=== PATIENT | female | born 1975 | race Caucasian/White ===

== ENCOUNTER 2020-05-07 12:23 | Outpatient (CLI) | payer OTHER, SELFPAY ==
[2020-05-07 12:40] LABS: Basophils Percent Auto 0.5 % (0.2-1.2); Eosinophils Absolute Auto 0.1 K/mm3 (0-0.3); Eosinophils Percent Auto 1.6 % (0-4.4); Hematocrit 46.1 % (37.0-47.0); Hemoglobin 15.7 g/dL (12.0-15.0); Immature Granulocyte Absolute 0.02 K/mm3 (0.00-0.031); Immature Granulocyte Percent A 0.2 % (0-0.5); Lymphocytes Absolute Auto 1.74 K/mm3 (0.9-3.2); Lymphocytes Percent Auto 20.8 % (18.3-44.2); Mean Corpuscular HGB Conc 34.1 g/dl (32-36); Mean Corpuscular Hemoglobin 34.1 pg (26-34); Mean Corpuscular Volume 100.2 fl (80-100); Mean Platelet Volume 9.9 fl (7.4-10.4); Monocytes Absolute Auto 0.8 K/mm3 (0.1-0.6); Monocytes Percent Auto 9.6 % (2.6-8.5); Neutrophils Absolute Auto 5.6 K/mm3 (1.3-6.7); Neutrophils Percent Auto 67.3 % (45.5-73.1); Platelet Count Result 187 k/mm3 (150-375); Red Cell Distribution Width 13.7 % (11.5-14.5); White Blood Count 8.4 K/mm3 (4.5-10.0)
--- NOTE | 2020-05-07 12:40 | ECG_ITS ---
Measurements Intervals [place] Rate: 74 P: 62 OR: 139 QRS: 57 QRSD: 88 T: 64 QT: 384 QTc: 426 Interpretive Statements SINUS RHYTHM POSSIBLE LEFT ATRIAL ENLARGEMENT BORDERLINE ECG Electronically Signed On 05-07-2020 13:19:13 CDT by Jonathon Villarreal D.O.
[2020-05-07 12:50] LABS: Blood Urea Nitrogen 14 mg/dL (7-17); Calcium 8.7 mg/dL (8.4-10.2); Carbon Dioxide 30 mmol/L (22-30); Chloride 103 mmol/L (98-107); Estimated Glomerular Filt Rate > 60; Glucose 102 mg/dL (65-105); Potassium 4.1 mmol/L (3.4-5.0); Sodium 137 mmol/L (137-145)
[2020-05-07 13:20] LABS: Thyroid Stimulating Hormone 0.291 uIU/mL (0.465-4.680)
== END 2020-05-07 12:24 | disposition home or self-care (01) ==
PROVIDERS: PCP Family Medicine; Visit Provider Nurse Practitioner Family
DX: R55 Syncope and collapse (principal); R94.31 Abnormal electrocardiogram [ECG] [EKG]
CPT/HCPCS: 36415; 80048; 84443; 85025; 93005

== ENCOUNTER 2020-08-01 17:33 | Outpatient (CLI) | payer OTHER, SELFPAY ==
--- NOTE | ~2020-08-01 | CT_ITS ---
EXAMINATION: CTA chest PE protocol DATE: 08/01/2020 18:49 INDICATION: Shortness of breath TECHNIQUE: Computed tomography angiography (CTA) of the chest was performed with 100 mL Omnipaque-350 intravenous contrast timed to evaluate the pulmonary arteries. Coronal maximum intensity projection 3D-reconstructions were created by the technologist. The dose-length product (DLP) was 708.78 mGy-cm. Automated exposure control and iterative reconstruction technique were employed. COMPARISON: None. FINDINGS: The pulmonary arteries are well-opacified. No pulmonary embolism is identified. There are m ultiple (greater than 10) pulmonary nodules scattered throughout the lungs. The largest measures 7 mm in the right lower lobe. No focal airspace opacities are identified. There is no pleural effusion or pneumothorax. No pathologically enlarged thoracic lymph nodes are identified. The heart size is norm al. IMPRESSION: 1. No pulmonary embolism. 2. Multiple pulmonary nodules measuring up to 7 mm which could reflect infection/inflammation however , follow-up CT in 3-6 months is recommended. Reviewed, dictated and finalized at location A. IMPRESSION: 1. No pulmonary embolism. 2. Multiple pulmonary nodules measuring up to 7 mm which could reflect infectio n/inflammation however, follow-up CT in 3-6 months is recommended.
[2020-08-01 18:00] LABS: Basophils Absolute Auto 0.1 K/mm3 (0.0-0.1); Basophils Percent Auto 0.5 % (0.2-1.2); Eosinophils Percent Auto 0.3 % (0-4.4); Hematocrit 45.6 % (37.0-47.0); Hemoglobin 15.5 g/dL (12.0-15.0); Immature Granulocyte Absolute 0.05 K/mm3 (0.00-0.031); Immature Granulocyte Percent A 0.4 % (0-0.5); Lymphocytes Absolute Auto 2.14 K/mm3 (0.9-3.2); Mean Corpuscular Hemoglobin 33.9 pg (26-34); Mean Corpuscular Volume 99.8 fl (80-100); Mean Platelet Volume 10.2 fl (7.4-10.4); Monocytes Percent Auto 8.7 % (2.6-8.5); Neutrophils Absolute Auto 8.6 K/mm3 (1.3-6.7); Neutrophils Percent Auto 72.1 % (45.5-73.1); Platelet Count Result 193 k/mm3 (150-375); Red Blood Count 4.57 M/mm3 (4.2-5.4); Red Cell Distribution Width 14.8 % (11.5-14.5); White Blood Count 11.9 K/mm3 (4.5-10.0)
[2020-08-01 18:12] LABS: Anion Gap 2 mmol/L (8-16); Blood Urea Nitrogen 14 mg/dL (7-17); Carbon Dioxide 30 mmol/L (22-30); Chloride 102 mmol/L (98-107); Estimated Glomerular Filt Rate > 60; Glucose 104 mg/dL (65-105); Sodium 134 mmol/L (137-145)
[2020-08-01 18:20] LABS: D Dimer 0.27 ug/mL (<0.48)
== END 2020-08-01 17:34 | disposition home or self-care (01) ==
LOC: ANHIMG 17:35
PROVIDERS: PCP Family Medicine; Visit Provider Family Medicine
DX: I10 Essential (primary) hypertension (principal); R06.02 Shortness of breath; R91.8 Other nonspecific abnormal finding of lung field
CPT/HCPCS: 36415; 71275; 80048; 85025; 85380; Q9967

== ENCOUNTER 2021-02-08 13:49 | Outpatient (CLI) | payer OTHER, SELFPAY ==
--- NOTE | ~2021-02-08 | XR_ITS ---
EXAMINATION: XR wrist LT min 3V DATE: 02/08/2021 14:16 INDICATION: Ulnar sided left wrist pain and swelling. TECHNIQUE: 4 views of left wrist were obtained. COMPARISON: None. FINDINGS: Bone alignment is normal. No fracture. There is degenerative cystic change in proximal jose roberto te, consistent with ulnolunate impaction syndrome. There is mild osteoarthritis of first and second m etacarpophalangeal joints. IMPRESSION: 1. Mild polyarticular osteoarthritis. Reviewed, dictated and finalized at location A.
== END 2021-02-08 13:50 | disposition home or self-care (01) ==
PROVIDERS: PCP Family Medicine; Visit Provider Nurse Practitioner Family
DX: M19.032 Primary osteoarthritis, left wrist (principal); R29.898 Other symptoms and signs involving the musculoskeletal system
CPT/HCPCS: 73110

== ENCOUNTER 2021-05-10 10:18 | Outpatient (CLI) | payer OTHER, SELFPAY ==
[2021-05-10 10:43] LABS: Basophils Absolute Auto 0.1 K/mm3 (0.0-0.1); Basophils Percent Auto 0.7 % (0.2-1.2); Eosinophils Absolute Auto 0.1 K/mm3 (0-0.3); Eosinophils Percent Auto 0.9 % (0-4.4); Hematocrit 42.9 % (37.0-47.0); Hemoglobin 14.2 g/dL (12.0-15.0); Immature Granulocyte Absolute 0.03 K/mm3 (0.00-0.031); Immature Granulocyte Percent A 0.3 % (0-0.5); Lymphocytes Absolute Auto 1.53 K/mm3 (0.9-3.2); Lymphocytes Percent Auto 17.2 % (18.3-44.2); Mean Corpuscular HGB Conc 33.1 g/dl (32-36); Mean Corpuscular Hemoglobin 33.3 pg (26-34); Mean Corpuscular Volume 100.5 fl (80-100); Mean Platelet Volume 10.3 fl (7.4-10.4); Monocytes Absolute Auto 0.8 K/mm3 (0.1-0.6); Neutrophils Absolute Auto 6.4 K/mm3 (1.3-6.7); Neutrophils Percent Auto 71.9 % (45.5-73.1); Platelet Count Result 170 k/mm3 (150-375); Red Blood Count 4.27 M/mm3 (4.2-5.4); Red Cell Distribution Width 14.7 % (11.5-14.5); White Blood Count 8.9 K/mm3 (4.5-10.0)
[2021-05-10 10:53] LABS: Alanine Aminotransferase 18 U/L (4-35); Alkaline Phosphatase 68 U/L (38-126); Anion Gap 6 mmol/L (8-16); Aspartate Amino Transferase 23 U/L (14-36); Bilirubin,Total 0.4 mg/dL (0.2-1.3); Blood Urea Nitrogen 24 mg/dL (7-17); Calcium 9.1 mg/dL (8.4-10.2); Carbon Dioxide 27 mmol/L (22-30); Chloride 106 mmol/L (98-107); Cholesterol 177 mg/dL (0-200); Estimated Glomerular Filt Rate > 60; Glucose 107 mg/dL (65-105); HDL Direct 63 mg/dL; Potassium 4.3 mmol/L (3.4-5.0); Sodium 139 mmol/L (137-145); Triglycerides 83 mg/dL (<150)
[2021-05-10 11:03] LABS: LDL Cholesterol Direct 93 mg/dL
[2021-05-10 11:23] LABS: Thyroid Stimulating Hormone 0.344 uIU/mL (0.465-4.680)
[2021-05-10 11:52] LABS: Hemoglobin A1C 5.5 % (<5.7)
[2021-05-10 12:31] LABS: Vitamin D 25 Hydroxy 15.3 ng/mL
== END 2021-05-10 10:19 | disposition home or self-care (01) ==
PROVIDERS: PCP Family Medicine; Visit Provider Nurse Practitioner Family
DX: Z13.29 Encounter for screening for other suspected endocrine disorder (principal); G47.33 Obstructive sleep apnea (adult) (pediatric); E78.5 Hyperlipidemia, unspecified; E55.9 Vitamin D deficiency, unspecified; E11.40 Type 2 diabetes mellitus with diabetic neuropathy, unspecified
CPT/HCPCS: 36415; 80053; 80061; 82306; 83036; 84443; 85025

== ENCOUNTER 2021-05-30 07:23 | Outpatient (CLI) | payer OTHER, SELFPAY ==
[2021-05-30 08:06] LABS: Glucose 108 mg/dL (65-110)
[2021-05-30 08:35] LABS: Free T4 Free Thyroxine 1.09 ng/mL (0.78-2.19)
== END 2021-05-30 07:24 | disposition home or self-care (01) ==
PROVIDERS: PCP Family Medicine; Visit Provider Nurse Practitioner Family
DX: R79.89 Other specified abnormal findings of blood chemistry (principal); R73.09 Other abnormal glucose
CPT/HCPCS: 36415; 82947; 84439; 84443

== ENCOUNTER 2021-06-14 17:11 | Emergency (ER) | payer OTHER, SELFPAY ==
[2021-06-14 17:30] VITALS: BP 177/87; PULSE 71; RESP 18; TEMP 37.2; O2SAT 96
--- NOTE | 2021-06-14 18:01 | ED.GENADULT ---
HPI - General Adult General Chief complaint: Upper Respiratory Infection Stated complaint: covid symptoms Time Seen by Provider: 06/14/21 17:52 Source: patient and RN notes reviewed Mode of arrival: ambulatory Limitations: no limitations History of Present Illness HPI narrative: 46-year-old female presents with complaints of upper respiratory infection symptoms, fatigue, body aches, and cough for the past 2 days. Charity reports increasing URI symptoms, productive cough, low-grade fever throughout the day. Reports she saw her PMD today who wants her evaluated for COVID-19. Routine medications without relief. Productive cough without chest congestion. ?Rhinorrhea and nasal congestion. Exacerbating factors consist of smoke exposure. ?No high fevers, chills, or sweats. ?No nausea, vomiting, and abdominal pain. Tolerating liquids well. Denies shortness of breath, chest pain, coughing up blood, facial pain, foreign body sensation, and rash. ?The patient reports she has not been diagnosed with COVID-19. ?The patient reports she is not waiting for the results of a COVID-19 lab test. The patient reports she does not have weakness or myalgia. The patient reports he does not have any loss of smell or taste or diarrhea. ?Denies recent traveling. ?Denies concerns for COVID-19 or exposures. ?At this time, the patient is not suspected of having COVID-19. Some parts of this dictation were generated by voice recognition software and may contain typographical and/or grammatical inaccuracies. Related Data Allergies Allergy/AdvReac Type Severity Reaction Status Date / Time cefadroxil Allergy Unknown unknown Verified 06/19/21 08:32 cefuroxime Allergy Unknown unknown Verified 06/19/21 08:32 Review of Systems Review of Systems: CONSTITUTIONAL: Complaints of low-grade fever, fatigue. Denies chills, sweats. EYES: Denies visual changes, redness, discharge. ENT: Complains of rhinorrhea, congestion. Denies otalgia, sore throat. CARDIOVASCULAR: Denies chest pain, palpitations, edema. RESPIRATORY: Denies wheezing, dyspnea. Complaints of dry cough and productivity. GASTROINTESTINAL: Denies abdominal pain, nausea, vomiting, diarrhea. GENITOURINARY: Denies dysuria, hematuria, abnormal discharge. SKIN: Denies rash or itching. MUSCULOSKELETAL: Denies acute back pain, joint pain, myalgia. Complaints of body aches. NEUROLOGIC: Denies numbness or focal weakness. PSYCHIATRIC: Denies anxiety or depression. All systems reviewed & are unremarkable except as noted in HPI and below. [facility] Past Medical History Medical History Anxiety BMI 36.0-36.9,adult COPD (chronic obstructive pulmonary disease) Depression Dyslipidemia Dyspnea Essential hypertension Neuropathy MARK (obstructive sleep apnea) Paroxysmal atrial tachycardia PVT (paroxysmal ventricular tachycardia) Tobacco abuse Type 2 diabetes mellitus with diabetic neuropathy, without long-term current use of insulin Vitamin D deficiency Surgical History Surgical History History of arthroscopic knee surgery LT X2 History of bilateral breast reduction surgery Family History Family History Mother Family history of chronic obstructive pulmonary disease Family history of heart disease in male family member before age 55 Family history of congestive heart failure Father No problems noted. Sibling No problems noted. 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 Gender identity (if verb
[2021-06-15 18:47] LABS: SARS-CoV-2 RNA PCR Negative
== END 2021-06-14 18:28 | disposition home or self-care (01) ==
PROVIDERS: Emergency Provider Nurse Practitioner Family; PCP Family Medicine
DX: J06.9 Acute upper respiratory infection, unspecified (principal); Z20.822 Contact with and (suspected) exposure to COVID-19; F17.210 Nicotine dependence, cigarettes, uncomplicated; J44.9 Chronic obstructive pulmonary disease, unspecified; E78.5 Hyperlipidemia, unspecified; I10 Essential (primary) hypertension; G47.33 Obstructive sleep apnea (adult) (pediatric); E11.42 Type 2 diabetes mellitus with diabetic polyneuropathy; F41.9 Anxiety disorder, unspecified; F32.9 Major depressive disorder, single episode, unspecified
CPT/HCPCS: 87426; 87804; 99213; C9803; G0463; U0003; U0005

== ENCOUNTER → 2021-06-14 17:15 | Outpatient (CLI) | payer OTHER, SELFPAY ==
--- NOTE | ~2021-06-14 | XR_ITS ---
EXAMINATION: XR chest 2V DATE: 06/14/2021 18:34 INDICATION: Cough. TECHNIQUE: Frontal and lateral views of the chest were obtained. COMPARISON: Chest 2 views 07/30/2019, chest CT 08/01/2020 FINDINGS: The chest demonstrates clear lungs without pneumonia, pleural effusion, or pneumothorax. Th e heart size is normal. IMPRESSION: 1. No acute cardiopulmonary disease. Reviewed, dictated and finalized at location A.
== END ==
PROVIDERS: PCP Nurse Practitioner Family; Visit Provider Nurse Practitioner Family
DX: R05 Cough (principal)
CPT/HCPCS: 71046

== ENCOUNTER 2022-11-08 07:39 | Outpatient (CLI) | payer OTHER, SELFPAY ==
--- NOTE | ~2022-11-08 | XR_ITS ---
Clinical Indication: Hypoxemia PA and lateral views of the chest: Comparison: 06/14/2021 Findings: The lungs are clear, without evidence of focal consolidation or pleural effusion. Cardiome diastinal silhouette is within normal limits. Bones and soft tissues are unremarkable. Impression: Normal chest. Reviewed, dictated and finalized at location . NATURALIST Impression: Normal chest.
--- NOTE | 2022-11-08 07:49 | ECHO_ITS ---
Patient Info Name: Charity Mclean Age: 47 years : 1975 Gender: Female Ht: 64 in Wt: 226 lbs BSA: 2.20 m2 HR: 71 bpm BP: 138 / 94 mmHg Technical Quality: Fair Exam Date: 11/08/2022 7:54 AM Exam Location: [facility] Patient Status: Outpatient Admit Date: 11/08/2022 Staff Ordering Physician: Jasmine Lopez MD Wooden Box Maker: Mary Choi RDCS Attending Provider: Jasmine Lopez MD Referring Physician: Jessica REDD; Exam Type: CA echo doppler color flow Study Info Indications R09.02 - HYPOXEMIA Complete two-dimensional, color flow and Doppler transthoracic echocardiogram is performed. Summary 1. Complete two-dimensional, color flow and Doppler transthoracic echocardiogram is performed. 2. Left ventricular chamber dimension is normal. 3. Left ventricular systolic function is normal, estimated at 60-65%. 4. There is mildly increased left ventricular wall thickness. 5. The left ventricular diastolic function is grade II diastolic dysfunction. 6. E/e' 18 is elevated. 7. Global longitudinal strain is normal at -17.1%. 8. Left atrial chamber dimension is moderately enlarged. 9. The mitral valve has moderately calcified annulus. 10. There is trace mitral valve regurgitation. 11. Mild pulmonary hypertension, estimated pulmonary arterial systolic pressure is 42 mmHg. 12. Dilated inferior vena cava with >50% collapse upon inspiration consistent with elevated right atrial pressure, 10 mmHg. Left Ventricle E/e' 18 is elevated. Global longitudinal strain is normal at -17.1%. Left ventricular chamber dimension is normal. Left ventricular systolic function is normal, estimated at 60-65%. There is mildly increased left ventricular wall thickness. The left ventricular diastolic function is grade II diastolic dysfunction. Right Ventricle Right ventricular systolic function is normal and with normal TAPSE 2.5 cm. Right ventricular chamber dimension is normal. Left Atria Left atrial chamber dimension is moderately enlarged. Right Atria Right atrial chamber dimension is normal. Aortic Valve The aortic valve is probable trileaflet. There is no aortic valve stenosis. There is no aortic valve regurgitation. Pulmonic Valve There is no pulmonic regurgitation. Mitral Valve The mitral valve has moderately calcified annulus. There is no mitral valve stenosis. There is trace mitral valve regurgitation. Tricuspid Valve There is no tricuspid valve regurgitation. Mild pulmonary hypertension, estimated pulmonary arterial systolic pressure is 42 mmHg. Pericardium/Pleural There is no pericardial effusion. Inferior Vena Cava Dilated inferior vena cava with >50% collapse upon inspiration consistent with elevated right atrial pressure, 10 mmHg. Aorta The aortic root size at the sinus of Valsalva is normal. Left Ventricular Outflow Tract Name Value Normal LVOT 2D LVOT Diameter 2.0 cm LVOT Doppler LVOT Peak Gradient 5 mmHg LVOT Mean Gradient 3 mmHg LVOT VTI 25 cm LVOT VTI/AV VTI Ratio
--- NOTE | 2022-11-09 08:58 | WPDPFTINT ---
PFT Procedure Performed PFT Procedure Performed Spirometry with Pre/Post Bronchodilator Plethysmography (Lung Vol) Diffusing Cap (DLCO) Flow Vol Loop PFT Interpretation Lung volumes were measured with the body plethysmography method. The diminished expiratory reserve volume is related to obesity. The remaining lung volumes are unremarkable. Spirometry showed diminished expiratory flow rates and a normal FEV1 to FVC ratio 72%. Following administration of a bronchodilator there was no significant increase in the expiratory flow rates. Lung diffusion capacity is within the normal range at 84% predicted. The flow volume loop is unremarkable. In comparison to previous study in 2019, the post bronchodilator FVC is now greater by approximately 0.5 L as is the post bronchodilator FEV1 by approximately 0.6 L. Lung diffusion capacity is now within normal range from a previous value of 52%. Impression: Nonspecific pattern; overall improvement from previous study showing moderate obstructive airway defect with diminished lung diffusion capacity.
--- NOTE | 2022-11-09 09:02 | WPDSIXMINUTE ---
Six Minute Walk Procedure Procedure Performed Pulmonary Stress Test (6 min walk) Six Minute Walk Six Minute Walk: This 6 minute walk test was carried out with the patient breathing ambient air. The pre-walk oxyhemoglobin saturation was 91%. The patient walked over 426 m with no stops during testing. During the walk the oxyhemoglobin saturation remained 90% or higher. Impression: No evidence of oxyhemoglobin desaturation on this testing.
== END 2022-11-08 07:40 | disposition home or self-care (01) ==
LOC: ANHCARD 07:41
PROVIDERS: PCP Family Medicine; Visit Provider Internal Medicine Critical Care Medicine
DX: R09.02 Hypoxemia (principal); I27.20 Pulmonary hypertension, unspecified
CPT/HCPCS: 71046; 93306; 94060; 94618; 94726; 94729

== ENCOUNTER 2023-02-16 05:17 | Inpatient (IN) | payer MEDICAID, SELFPAY ==
[2023-02-16] VITALS (18 sets, daily range): BP systolic 96–127; BP diastolic 63–86; PULSE 99–152; RESP 16–32; TEMP 36.1–36.3; O2SAT 90–100; BMI 39.7
--- NOTE | 2023-02-16 05:26 | ADMGEN ---
This patient, Charity Mclean, was admitted to IMU Room 211-01 on 02/16/23 at 0520. Patient/family oriented to hospital policies and general routines including ID bracelet, bed and alarms, visiting hours, pain management, procedures, bathroom and other care routines, personal items, smoking policy, room service/diet, and visiting hours. Information on how to activate the Rapid Response Team has been discussed. Patient/Family are encouraged to report perceived risks to care and to ask questions if they do not understand what they are told or what they should do.
--- NOTE | 2023-02-16 05:40 | ECG_ITS ---
Measurements Intervals [place] Rate: 138 P: RI: 0 QRS: 60 QRSD: 91 T: 74 QT: 291 QTc: 441 Interpretive Statements ATRIAL FIBRILLATION WITH RAPID VENTRICULAR RESPONSE BASELINE ARTIFACT ABNORMAL ECG COMPARED TO ECG 05/07/2020 12:45:01 ATRIAL FIBRILLATION NOW PRESENT Electronically Signed On 02-16-2023 15:24:41 CDT by Too Hill M.D.
[2023-02-16 06:18] LABS: Basophils Absolute Auto 0.1 K/mm3 (0.0-0.1); Basophils Percent Auto 0.6 % (0.2-1.2); Eosinophils Absolute Auto 0.1 K/mm3 (0-0.3); Eosinophils Percent Auto 1.6 % (0-4.4); Hematocrit 37.9 % (37.0-47.0); Hemoglobin 12.3 g/dL (12.0-15.0); Immature Granulocyte Absolute 0.02 K/mm3 (0.00-0.031); Immature Granulocyte Percent A 0.3 % (0-0.5); Lymphocytes Absolute Auto 1.68 K/mm3 (0.9-3.2); Lymphocytes Percent Auto 21.8 % (18.3-44.2); Mean Corpuscular HGB Conc 32.5 g/dl (32-36); Mean Corpuscular Hemoglobin 33.3 pg (26-34); Mean Corpuscular Volume 102.7 fl (80-100); Mean Platelet Volume 9.9 fl (7.4-10.4); Monocytes Absolute Auto 0.8 K/mm3 (0.1-0.6); Monocytes Percent Auto 9.7 % (2.6-8.5); Neutrophils Absolute Auto 5.1 K/mm3 (1.3-6.7); Platelet Count Result 200 k/mm3 (150-375); Red Blood Count 3.69 M/mm3 (4.2-5.4); Red Cell Distribution Width 14.5 % (11.5-14.5); White Blood Count 7.7 K/mm3 (4.5-10.0)
[2023-02-16 06:25] LABS: Anion Gap 1 mmol/L (8-16); Blood Urea Nitrogen 11 mg/dL (7-17); Calcium 8.6 mg/dL (8.4-10.2); Carbon Dioxide 32 mmol/L (22-30); Chloride 107 mmol/L (98-107); Estimated CRCL calculation 136 ml/min; Estimated Glomerular Filt Rate > 60; Glucose 117 mg/dL (65-110); Magnesium 2.2 mg/dL (1.6-2.3); Phosphorus 3.4 mg/dL (2.5-4.5); Potassium 4.5 mmol/L (3.4-5.0); Sodium 140 mmol/L (137-145)
[2023-02-16 06:31] LABS: INR 1.2; Prothrombin Time 14.5 Seconds (11.1-14.7)
[2023-02-16 06:32] LABS: Partial Thromboplastin Time 34.4 SECONDS (22.3-36.8)
--- NOTE | 2023-02-16 06:35 | PM.IMHP ---
H&P: HPI History of Present Illness Date/Time: 02/16/23 06:35 Chief Complaint: Shortness of breath Narrative: Patient is a 47 year old female with a past medical history of COPD, MARK, HTN, HLD who presented to [facility] in [place] for shortness of breath. Patient stated that about two weeks ago she was sick with what she thought was the flu. She stated, at that time her sputum had changed, which she stated was yucky. She stated that all of that had resolved, however, the last two days she has been noted to be more short of breath. She went and had her albuterol inhaler, however, she stated that she did not notice any changes, this is when she stated that this is the point when she decided to go the ED. She does admit to having palpitations the day before yesterday. She stated that she is also supposed to be on a CPAP/BiPap however she does not wear one. She is also supposed to be taking brezi for her COPD, however, she stated that it got too expensive so she has also stopped this as well. She denies any chest pain, nausea, vomiting, diarrhea, constipation, headache, lightheadedness, dizziness, increased swelling, or pain. She did state that she has seen Dr. Villarreal in the past, however, she stated that she has not seen him recently. She does admit to being tired all of the time. Currently, her heart rate is 120-130s. The nurse reported that the IV was bad when she arrived so she has not been getting any of the cardizem. She had an echo done in October of 2022, which showed EF of 60-65% with a grade 2 diastolic dysfunction. She denies any current urinary problems. Patient is being admitted to the hospitalist service under observation. Review of Systems Review of Systems: All systems reviewed & are unremarkable except as noted in HPI and below PMFSH Past Medical History Medical History (Updated 02/16/23 @ 08:13 by RENNY Galvan) Anxiety Bronchitis Conjunctivitis Depression Dyslipidemia Essential hypertension Hematuria Left wrist sprain Low back pain with right-sided sciatica Low TSH level Morbid (severe) obesity due to excess calories Neuropathy MARK (obstructive sleep apnea) Paroxysmal atrial tachycardia Syncope Tobacco abuse Type 2 diabetes mellitus with diabetic neuropathy, without long-term current use of insulin Vitamin D deficiency Surgical History Surgical History History of arthroscopic knee surgery LT X2 History of bilateral breast reduction surgery Family History Family History Mother Family history of chronic obstructive pulmonary disease Family history of congestive heart failure Heart disease Hypertension Father No problems noted. Sibling No problems noted. Social History Social History (Updated 02/16/23 @ 07:26 by RENNY Galvan) Social History: Patient lives by herself and is not . She has two children and lives with a cat. She wishes to be a full code, and her daughter Jossy will be her surrogate. Smoking packs per day: 1 Smoking cigarettes per day: 20.0 Years smoked: 34 Smoking pack-years: 34.00 Smoking status: Current every day smoker Tobacco type: cigarettes Second hand tobacco smoke exposure: Yes Alcohol intake: current Alcohol use details: Beer with friend 2x a month Substance use: current Substance use type: marijuana Other substance usage details: joint about every other day Last use: 02/09/23 Lack of Transportation: YES Lack of Food: Sometimes True Current Housing: I Have Housing Concerned About Future Housing: No Difficulty Paying Gas/Electric Bills: No Difficulty Paying for Meds: YES Currently Unemployed: YES Education: High School Diploma/GED Difficulty w/ Childcare or Family Care: No Living arrangements: with family Occupation/Education: occupation [employer]
[2023-02-16 07:26] LABS: NT Pro B Type Natriuretic Pept 2310 pg/mL (19.9-100)
[2023-02-16] MEDS: ENOXAPARIN 120 MG/0.8 ML SYRINGE 105 MG SUB-Q (07:32)
--- NOTE | 2023-02-16 07:56 | PM.CNCAR ---
Assessment and Plan Assessment and plan (1) Atrial fibrillation with rapid ventricular response: Code(s): I48.91 - Unspecified atrial fibrillation Status: Acute Assessment and Plan: Probably due to untreated MARK (as she awaits sleep study), recent URI?. [id number] 3. Start Sotalol 80 mg every 12 hours and Eliquis 5 mg BID. Continue Diltiazem drip for rate control and stop it if she cardioverts to sinus rhythm or HR in atrial fib is <70 bpm. Check EKG every 1-2 hours post Sotalol dose to check QT interval. (2) Tobacco abuse: Code(s): Z72.0 - Tobacco use Status: Acute Assessment and Plan: Counseled regarding smoking cessation. (3) COPD (chronic obstructive pulmonary disease): Code(s): J44.9 - Chronic obstructive pulmonary disease, unspecified Status: Acute Assessment and Plan: Manage by hospitalist. (4) MARK (obstructive sleep apnea): Code(s): G47.33 - Obstructive sleep apnea (adult) (pediatric) Status: Acute Assessment and Plan: Sees Dr. Lopez. (5) Morbid (severe) obesity due to excess calories: Code(s): E66.01 - Morbid (severe) obesity due to excess calories Status: Acute (6) Type 2 diabetes mellitus with diabetic neuropathy, without long-term current use of insulin: Code(s): E11.40 - Type 2 diabetes mellitus with diabetic neuropathy, unspecified Status: Acute Assessment and Plan: Manage by hospitalist. (7) Essential hypertension: Code(s): I10 - Essential (primary) hypertension Status: Acute Assessment and Plan: Stable. (8) Dyslipidemia: Code(s): E78.5 - Hyperlipidemia, unspecified Status: Acute Assessment and Plan: On Rosuvastatin. History of Present Illness History of Present Illness Consult date/time: 02/16/23 07:56 Reason For Visit: New onset Afib RVR Narrative: 47 yr old woman who is my regular cardiology patient presented to [facility] then transferred here for sob and found to have new onset atrial fib. She has a history of COPD, MARK (followed by Dr. Lopez), hypertension, DM, dyslipidemia, smoking. Reports in last few days she had sob and coughing and believed she had flu or pneumonia. She had palpitations during this time. She then went to [place] [facility] and found she was in rapid atrial fibrillation. Currently she is exhausted having not been able to sleep. She had changed jobs and lost her insurance and has not been able to do sleep study as ordered by Dr. Lopez. Now she has Medicaid. Denies chest pain, orthopnea, PND, edema, dizziness. Review of Systems Review of Systems: All systems reviewed & are unremarkable except as noted in HPI and below Constitutional: Constitutional: Reports as per HPI, Reports daytime sleepiness, Reports difficulty sleeping, Reports fatigue and Reports snoring Cardiovascular: Cardiovascular: Reports as per HPI, Denies chest pain, Reports irregular heart rhythm, Denies leg edema and Denies lightheadedness Respiratory: Respiratory: Reports as per HPI, Reports pain with cough, Reports dyspnea and Reports dyspnea on exertion Gastrointestinal: Gastrointestinal: Reports as per HPI and Denies abdominal pain Genitourinary: Genitourinary: Reports as per HPI and Denies dysuria Musculoskeletal: Musculoskeletal: Reports as per HPI Neurologic: Reports as per HPI, Denies dizziness and Denies syncope [facility] Past Medical History Medical History (Updated 02/16/23 @ 08:06 by Jonathon Villarreal DO) Anxiety Bronchitis Conjunctivitis Depression Dyslipidemia Essential hypertension Hematuria Left wrist sprain Low back pain with right-sided sciatica Low TSH level Morbid (severe) obesity due to excess calories Neuropathy MARK (obstructive sleep apnea) Paroxysmal atrial tachycardia Syncope Tobacco abuse Type 2 diabetes mellitus with diabetic neuropathy, without long-term current use of insulin Vitamin D deficiency Surgical History Surgical Histo
--- NOTE | 2023-02-16 08:04 | ECG_ITS ---
Measurements Intervals [place] Rate: 113 P: [place]: 0 QRS: 58 QRSD: 98 T: 64 QT: 319 QTc: 438 Interpretive Statements ATRIAL FIBRILLATION WITH RAPID VENTRICULAR RESPONSE ABNORMAL ECG COMPARED TO ECG 02/16/2023 06:24:04 NO SIGNIFICANT CHANGES Electronically Signed On 02-16-2023 15:32:46 CDT by Too Hill M.D.
[2023-02-16] MEDS: dilTIAZem 100 MG/100 ML 100 MG/100 ML BAG IV CONT (08:43)
[2023-02-16] MEDS: FUROSEMIDE INJ 40 MG/4 ML VIAL IV PUSH (08:43)
[2023-02-16] MEDS: SOTALOL HCL 80 MG TABLET PO ×2 (08:45→20:07)
[2023-02-16] MEDS: APIXABAN 5 MG TABLET PO ×2 (08:45→20:07)
[2023-02-16] MEDS: buPROPion HCL XL (24 HR) 150 MG TABCR 300 MG PO (08:46)
[2023-02-16] MEDS: ROSUVASTATIN 10 MG TABLET 20 MG PO (08:46)
[2023-02-16] MEDS: GABAPENTIN 400 MG CAPSULE 1200 MG PO (08:46)
[2023-02-16 12:18] LABS: Glucose Point of Care 145 mg/dl (65-105)
[2023-02-16 16:00] LABS: Glucose Point of Care 101 mg/dl (65-105)
[2023-02-16] MEDS: GABAPENTIN 300 MG CAPSULE 600 MG PO (17:44)
[2023-02-16 20:05] LABS: Glucose Point of Care 143 mg/dl (65-105)
--- NOTE | 2023-02-16 22:07 | ECG_ITS ---
Measurements Intervals [place] Rate: 110 P: [place]: 0 QRS: 50 QRSD: 97 T: 61 QT: 332 QTc: 450 Interpretive Statements ATRIAL FIBRILLATION WITH RAPID VENTRICULAR RESPONSE ABNORMAL ECG COMPARED TO ECG 02/16/2023 10:40:33 NO SIGNIFICANT CHANGES Electronically Signed On 02-17-2023 13:43:39 CDT by Too Hill M.D.
[2023-02-17] VITALS (21 sets, daily range): BP systolic 111–139; BP diastolic 68–89; PULSE 88–122; RESP 20–24; TEMP 35.7–36.4; O2SAT 91–96
[2023-02-17] MEDS: dilTIAZem 100 MG/100 ML 100 MG/100 ML BAG 10 MG IV CONT ×2 (02:34→12:50)
[2023-02-17 05:02] LABS: Basophils Percent Auto 0.6 % (0.2-1.2); Eosinophils Absolute Auto 0.2 K/mm3 (0-0.3); Eosinophils Percent Auto 2.3 % (0-4.4); Hematocrit 37.9 % (37.0-47.0); Hemoglobin 12.1 g/dL (12.0-15.0); Immature Granulocyte Absolute 0.02 K/mm3 (0.00-0.031); Immature Granulocyte Percent A 0.3 % (0-0.5); Lymphocytes Absolute Auto 1.61 K/mm3 (0.9-3.2); Lymphocytes Percent Auto 24.8 % (18.3-44.2); Mean Corpuscular HGB Conc 31.9 g/dl (32-36); Mean Corpuscular Hemoglobin 32.4 pg (26-34); Mean Corpuscular Volume 101.3 fl (80-100); Mean Platelet Volume 10.1 fl (7.4-10.4); Monocytes Absolute Auto 0.6 K/mm3 (0.1-0.6); Monocytes Percent Auto 9.1 % (2.6-8.5); Neutrophils Absolute Auto 4.1 K/mm3 (1.3-6.7); Neutrophils Percent Auto 62.9 % (45.5-73.1); Platelet Count Result 215 k/mm3 (150-375); Red Blood Count 3.74 M/mm3 (4.2-5.4); Red Cell Distribution Width 14.1 % (11.5-14.5); White Blood Count 6.5 K/mm3 (4.5-10.0)
[2023-02-17 05:13] LABS: Alanine Aminotransferase 48 U/L (6-35); Albumin Level 3.5 g/dL (3.5-5.1); Alkaline Phosphatase 68 U/L (38-126); Anion Gap 3 mmol/L (8-16); Aspartate Amino Transferase 25 U/L (14-36); Bilirubin,Total 0.4 mg/dL (0.2-1.3); Blood Urea Nitrogen 17 mg/dL (7-17); Calcium 8.3 mg/dL (8.4-10.2); Carbon Dioxide 35 mmol/L (22-30); Chloride 102 mmol/L (98-107); Estimated CRCL calculation 136 ml/min; Estimated Glomerular Filt Rate > 60; Glucose 96 mg/dL (65-110); Magnesium 2.4 mg/dL (1.6-2.3); Potassium 4.3 mmol/L (3.4-5.0); Sodium 140 mmol/L (137-145)
[2023-02-17 08:47] LABS: Glucose Point of Care 104 mg/dl (65-105)
--- NOTE | 2023-02-17 09:00 | P.PNIM_ITS ---
Progress Note: A&P Assessment and Plan (1) Atrial fibrillation with rapid ventricular response: Code(s): I48.91 - Unspecified atrial fibrillation Status: Acute Assessment and Plan: * EKG (02/16/23) shows new onset afib RVR with a rate in the 130s * EKG (02/17/23) shows afib with heart rate in 110, QTc 450 * Current heart rate is better controlled in the 90s * Cardizem DC'd at this time * Will stop Bystolic * Started on Sotalol 80mg PO Q12H * tele monitor * Trend heart rate * Cardiology consulted thank you for your help * Started on Eliquis at outside facility, continue Lovenox for now, phan out the Eliquis (2) Tobacco abuse: Code(s): Z72.0 - Tobacco use Status: Acute Assessment and Plan: * Continues to smoke * Patch and gum added to mar * Smoking cessation education needed at discharge (3) COPD (chronic obstructive pulmonary disease): Code(s): J44.9 - Chronic obstructive pulmonary disease, unspecified Status: Acute Assessment and Plan: * Chronic and stable * No indication for supplemental oxygen * Albuterol inhaler continued * Will have her follow up with pulmonology for inhaler suggestions outpatient * trend respiratory status (4) Morbid (severe) obesity due to excess calories: Code(s): E66.01 - Morbid (severe) obesity due to excess calories Status: Acute Assessment and Plan: * BMI is 39.7 * Consider training designer consult * low fat diabetic diet (5) MARK (obstructive sleep apnea): Code(s): G47.33 - Obstructive sleep apnea (adult) (pediatric) Status: Acute Assessment and Plan: * No use of current CPAP/BiPAP * Did have a sleep study * High pulm HTN noted on the Echo (6) Type 2 diabetes mellitus with diabetic neuropathy, without long-term current use of insulin: Code(s): E11.40 - Type 2 diabetes mellitus with diabetic neuropathy, unspecified Status: Acute Assessment and Plan: * Current glucose is 96 * A1c has been in the 5s * ISS * Accu Cheks AC/HS * Trend glucose * Adjust therapy as indicated (7) Essential hypertension: Code(s): I10 - Essential (primary) hypertension Status: Acute Assessment and Plan: * BP is stable at 112/68 * Currently lisinopril and Bystolic is on hold * Restart medications as indicated * Trend BP * Adjust therapy as indicated (8) Dyslipidemia: Code(s): E78.5 - Hyperlipidemia, unspecified Status: Acute Assessment and Plan: * Continue rosuvastatin at this time (9) Congestive heart failure: Code(s): I50.9 - Heart failure, unspecified Status: Acute Assessment and Plan: * Complaints of shortness of breath * BNP elevated at 2310 * Echo shows grade 2 diastolic dysfunction * Appears to be chronic diastolic heart failure unsure if in acute exacerbation * Continue to trend urine output * could be contributing to the current symptoms * One dose of lasix given * Trend daily weights Plan Apnea link to assess for nocturnal hypoxia. Could also be related to obesity hypoventilation syndrome component as well Time Spent With Patient Time: 51 minutes Time with patient: Greater than 35 minutes Subjective Nikolas
--- NOTE | 2023-02-17 09:00 | PM.IMPN ---
Progress Note: A&P Assessment and Plan (1) Atrial fibrillation with rapid ventricular response: Code(s): I48.91 - Unspecified atrial fibrillation Status: Acute Assessment and Plan: EKG (02/16/23) shows new onset afib RVR with a rate in the 130s EKG (02/17/23) shows afib with heart rate in 110, QTc 450 Current heart rate is better controlled in the 90s Cardizem DC'd at this time Will stop Bystolic Started on Sotalol 80mg PO Q12H tele monitor Trend heart rate Cardiology consulted thank you for your help Started on Eliquis at outside facility, continue Lovenox for now, hpan out the Eliquis (2) Tobacco abuse: Code(s): Z72.0 - Tobacco use Status: Acute Assessment and Plan: Continues to smoke Patch and gum added to mar Smoking cessation education needed at discharge (3) COPD (chronic obstructive pulmonary disease): Code(s): J44.9 - Chronic obstructive pulmonary disease, unspecified Status: Acute Assessment and Plan: Chronic and stable No indication for supplemental oxygen Albuterol inhaler continued Will have her follow up with pulmonology for inhaler suggestions outpatient trend respiratory status (4) Morbid (severe) obesity due to excess calories: Code(s): E66.01 - Morbid (severe) obesity due to excess calories Status: Acute Assessment and Plan: BMI is 39.7 Consider rail express clerk consult low fat diabetic diet (5) MARK (obstructive sleep apnea): Code(s): G47.33 - Obstructive sleep apnea (adult) (pediatric) Status: Acute Assessment and Plan: No use of current CPAP/BiPAP Did have a sleep study High pulm HTN noted on the Echo (6) Type 2 diabetes mellitus with diabetic neuropathy, without long-term current use of insulin: Code(s): E11.40 - Type 2 diabetes mellitus with diabetic neuropathy, unspecified Status: Acute Assessment and Plan: Current glucose is 96 A1c has been in the 5s ISS Accu Cheks AC/HS Trend glucose Adjust therapy as indicated (7) Essential hypertension: Code(s): I10 - Essential (primary) hypertension Status: Acute Assessment and Plan: BP is stable at 112/68 Currently lisinopril and Bystolic is on hold Restart medications as indicated Trend BP Adjust therapy as indicated (8) Dyslipidemia: Code(s): E78.5 - Hyperlipidemia, unspecified Status: Acute Assessment and Plan: Continue rosuvastatin at this time (9) Congestive heart failure: Code(s): I50.9 - Heart failure, unspecified Status: Acute Assessment and Plan: Complaints of shortness of breath BNP elevated at 2310 Echo shows grade 2 diastolic dysfunction Appears to be chronic diastolic heart failure unsure if in acute exacerbation Continue to trend urine output could be contributing to the current symptoms One dose of lasix given Trend daily weights Plan Apnea link to assess for nocturnal hypoxia. Could also be related to obesity hypoventilation syndrome component as well Time Spent With Patient Time: 51 minutes Time with patient: Greater than 35 minutes Subjective Date/time seen: 02/17/23899 Interval history: 02/17/23899 Patient is doing ok. She complained of a little bit of left sided chest pain, however stated it was when she coughed, and it reproducible with area is palpated. She is stating that she is coughing a lot. She denies any sputum changes. She is denying any shortness of breath, nausea, vomiting, diarrhea constipation. Patient was on some oxygen. She is probably hypoxic at night related to her MARK, will have patient get a apnea link this evening to check on saturation levels. 02/16/23? 06:35 Patient is a 47 year old female with a past medical history of COPD, MARK, HTN, HLD who presented to [facility]
[2023-02-17] MEDS: SOTALOL HCL 80 MG TABLET PO ×2 (09:19→21:06)
[2023-02-17] MEDS: ROSUVASTATIN 10 MG TABLET 20 MG PO (09:19)
[2023-02-17] MEDS: APIXABAN 5 MG TABLET PO ×2 (09:19→21:06)
[2023-02-17] MEDS: buPROPion HCL XL (24 HR) 150 MG TABCR 300 MG PO (09:19)
[2023-02-17] MEDS: GABAPENTIN 400 MG CAPSULE 1200 MG PO (09:19)
--- NOTE | 2023-02-17 11:19 | ECG_ITS ---
Measurements Intervals [place] Rate: 91 P: [place]: 0 QRS: 61 QRSD: 95 T: 71 QT: 357 QTc: 440 Interpretive Statements ATRIAL FIBRILLATION ABNORMAL ECG COMPARED TO ECG 02/16/2023 22:08:54 NO SIGNIFICANT CHANGES Electronically Signed On 02-17-2023 13:57:49 CDT by Too Hill M.D.
[2023-02-17 11:48] LABS: Glucose Point of Care 98 mg/dl (65-105)
[2023-02-17] MEDS: NICOTINE (*PBKC) 21 MG PATCH 1 PATCH TRANSDERM (12:47)
[2023-02-17] MEDS: NICOTINE (*PBKC) 4 MG GUM PO (12:48)
[2023-02-17] MEDS: guaiFENesin 600 MG/DEXTROMETHORPHAN 30 MG SR TAB 12 HR 1 TAB PO ×2 (12:51→21:15)
[2023-02-17 16:44] LABS: Glucose Point of Care 82 mg/dl (65-105)
[2023-02-17] MEDS: GABAPENTIN 300 MG CAPSULE 600 MG PO (19:30)
--- NOTE | 2023-02-17 19:39 | PM.PNCARD ---
Progress Note: A&P Assessment and Plan (1) Atrial fibrillation with rapid ventricular response: Code(s): I48.91 - Unspecified atrial fibrillation Status: Acute Assessment and Plan: Probably due to untreated MARK (as she awaits sleep study), recent URI?. [id number] 3. Started Sotalol 80 mg every 12 hours and Eliquis 5 mg BID. Continue Diltiazem drip for rate control and stop it if she cardioverts to sinus rhythm or HR in atrial fib is <70 bpm. Check EKG every 1-2 hours post Sotalol dose to check QT interval. Discuss plan for EDIS/DC Cardioversion with anesthesia tomorrow AM and she is agreeable. (2) Tobacco abuse: Code(s): Z72.0 - Tobacco use Status: Acute Assessment and Plan: Counseled regarding smoking cessation. (3) COPD (chronic obstructive pulmonary disease): Code(s): J44.9 - Chronic obstructive pulmonary disease, unspecified Status: Acute Assessment and Plan: Manage by hospitalist. (4) MARK (obstructive sleep apnea): Code(s): G47.33 - Obstructive sleep apnea (adult) (pediatric) Status: Acute Assessment and Plan: Sees Dr. Lopez. (5) Morbid (severe) obesity due to excess calories: Code(s): E66.01 - Morbid (severe) obesity due to excess calories Status: Acute (6) Type 2 diabetes mellitus with diabetic neuropathy, without long-term current use of insulin: Code(s): E11.40 - Type 2 diabetes mellitus with diabetic neuropathy, unspecified Status: Acute Assessment and Plan: Manage by hospitalist. (7) Essential hypertension: Code(s): I10 - Essential (primary) hypertension Status: Acute Assessment and Plan: Stable. (8) Dyslipidemia: Code(s): E78.5 - Hyperlipidemia, unspecified Status: Acute Assessment and Plan: On Rosuvastatin. Subjective Date/time seen: 02/17/23 19:39 Interval history: Denies chest pain or sob. Exam Const: General: cooperative, healthy appearing, comfortable and overweight Nutritional Appearance: overweight Orientation/consciousness: oriented to person, oriented to place and oriented to time Resp: Auscultation: no crackles, no rales, no rhonchi, no wheezes and diminished lung sounds Cardio: Rate: tachycardic Rhythm: abnormal rhythm Heart sounds: no murmurs Peripheral pulses: dorsalis pedis present Neuro: General: oriented to person, oriented to place and oriented to time Extrem: Right lower extremity: no edema Left lower extremity: no edema Objective Data Vital Signs Vital Signs: Vital Signs - 24 hr 02/16/23 20:07 02/16/23 20:00 02/16/23 20:00 Temperature 97.3 F L Pulse Rate 116 H 126 H 126 H Respiratory Rate 22 H 22 H Blood Pressure 118/76 Pulse Oximetry 91 91 Oxygen Delivery Room Air Oxygen Flow Rate 02/16/23 20:00 02/16/23 22:00 02/16/23 23:16 Temperature 97.2 F L Pulse Rate 112 H 105 H 119 H Respiratory Rate 20 Blood Pressure 115/74 Pulse Oximetry 94 Oxygen Delivery Oxygen Flow Rate 02/16/23 23:34 02/16/23 23:38 02/17/23 00:00 Temperature Pulse Rate 119 H 119 H 122 H Respiratory Rate 20 Blood Pressure 115/74 Pulse Oximetry 94 Oxygen Delivery Nasal Cannula Oxygen Flow Rate 2 02/17/23 01:58 02/17/23 02:34 02/17/23 04:00 Temperature 97 F L Pulse Rate 88 101 H 108 H Respiratory Rate 20 Blood Pressure 115/74 112/68 Pulse Oximetry 96 Oxygen Delivery Oxygen Flow Rate 02/17/23 04:00 02/17/23 04:00 02/17/23 05:12 Temperature Pulse Rate 108 H 98 91 Respiratory Rate 20 Blood Pressure Pulse Oximetry 96 Oxygen Delivery Nasal Cannula Oxygen Flow Rate 2 02/17/23 07:59 02/17/23 08:00 02/17/23 09:19 Temperature 97.5 F L Pulse Rate 110 H 117 H 117 H Respiratory Rate 21 H Blood Pressure 115/85 Pulse Oximetry 95 Oxygen Delivery Oxygen Flow Rate 02/17/23 08:00 02/17/23 10:00 02/17/23 11:50 Temperature 96.2 F L Pulse Ra
[2023-02-17 20:44] LABS: Glucose Point of Care 139 mg/dl (65-105)
--- NOTE | 2023-02-17 23:07 | ECG_ITS ---
Measurements Intervals [place] Rate: 89 P: [place]: 0 QRS: 58 QRSD: 100 T: 47 QT: 365 QTc: 445 Interpretive Statements ATRIAL FIBRILLATION ABNORMAL ECG COMPARED TO ECG 02/17/2023 11:25:36 NO SIGNIFICANT CHANGES Electronically Signed On 02-18-2023 16:55:47 CDT by Too Hill M.D.
[2023-02-18] VITALS (20 sets, daily range): BP systolic 108–139; BP diastolic 56–89; PULSE 77–119; RESP 18–20; TEMP 36.2–36.5; O2SAT 92–100
[2023-02-18] MEDS: SODIUM CHLORIDE 0.9% IV 1,000 ML 30 ML IV CONT (00:35)
[2023-02-18] MEDS: dilTIAZem 100 MG/100 ML 100 MG/100 ML BAG 15 MG IV CONT ×4 (00:36→21:33)
[2023-02-18 07:25] LABS: Basophils Percent Auto 0.6 % (0.2-1.2); Eosinophils Absolute Auto 0.1 K/mm3 (0-0.3); Eosinophils Percent Auto 1.9 % (0-4.4); Hematocrit 37.5 % (37.0-47.0); Immature Granulocyte Absolute 0.01 K/mm3 (0.00-0.031); Immature Granulocyte Percent A 0.1 % (0-0.5); Lymphocytes Absolute Auto 1.29 K/mm3 (0.9-3.2); Lymphocytes Percent Auto 19.2 % (18.3-44.2); Mean Corpuscular Hemoglobin 32.4 pg (26-34); Mean Corpuscular Volume 101.4 fl (80-100); Mean Platelet Volume 9.3 fl (7.4-10.4); Monocytes Absolute Auto 0.7 K/mm3 (0.1-0.6); Monocytes Percent Auto 10.4 % (2.6-8.5); Neutrophils Absolute Auto 4.6 K/mm3 (1.3-6.7); Neutrophils Percent Auto 67.8 % (45.5-73.1); Platelet Count Result 207 k/mm3 (150-375); Red Cell Distribution Width 13.5 % (11.5-14.5); White Blood Count 6.7 K/mm3 (4.5-10.0)
[2023-02-18 07:43] LABS: Alanine Aminotransferase 43 U/L (6-35); Albumin Level 3.4 g/dL (3.5-5.1); Alkaline Phosphatase 64 U/L (38-126); Anion Gap -1 mmol/L (8-16); Aspartate Amino Transferase 22 U/L (14-36); Bilirubin,Total 0.5 mg/dL (0.2-1.3); Blood Urea Nitrogen 15 mg/dL (7-17); Calcium 8.1 mg/dL (8.4-10.2); Carbon Dioxide 35 mmol/L (22-30); Chloride 103 mmol/L (98-107); Estimated CRCL calculation 136 ml/min; Estimated Glomerular Filt Rate > 60; Glucose 118 mg/dL (65-110); Magnesium 2.2 mg/dL (1.6-2.3); Potassium 4.6 mmol/L (3.4-5.0); Sodium 137 mmol/L (137-145)
--- NOTE | 2023-02-18 07:51 | PM.PNCARD ---
Progress Note: A&P Assessment and Plan (1) Atrial fibrillation with rapid ventricular response: Code(s): I48.91 - Unspecified atrial fibrillation Status: Acute Assessment and Plan: Probably due to untreated MARK (as she awaits sleep study), recent URI?. [id number] 3. Started Sotalol 80 mg every 12 hours and Eliquis 5 mg BID. Continue Diltiazem drip for rate control and stop it if she cardioverts to sinus rhythm or HR in atrial fib is <70 bpm. Check EKG every 1-2 hours post Sotalol dose to check QT interval. Tolerating Sotalol well. Discuss plan for EDIS/DC Cardioversion with anesthesia tomorow and she is agreeable. (2) Tobacco abuse: Code(s): Z72.0 - Tobacco use Status: Acute Assessment and Plan: Counseled regarding smoking cessation. (3) COPD (chronic obstructive pulmonary disease): Code(s): J44.9 - Chronic obstructive pulmonary disease, unspecified Status: Acute Assessment and Plan: Manage by hospitalist. (4) MARK (obstructive sleep apnea): Code(s): G47.33 - Obstructive sleep apnea (adult) (pediatric) Status: Acute Assessment and Plan: Sees Dr. Lopez. (5) Morbid (severe) obesity due to excess calories: Code(s): E66.01 - Morbid (severe) obesity due to excess calories Status: Acute (6) Type 2 diabetes mellitus with diabetic neuropathy, without long-term current use of insulin: Code(s): E11.40 - Type 2 diabetes mellitus with diabetic neuropathy, unspecified Status: Acute Assessment and Plan: Manage by hospitalist. (7) Essential hypertension: Code(s): I10 - Essential (primary) hypertension Status: Acute Assessment and Plan: Stable. (8) Dyslipidemia: Code(s): E78.5 - Hyperlipidemia, unspecified Status: Acute Assessment and Plan: On Rosuvastatin. Subjective Date/time seen: 02/18/23 07:51 Interval history: Denies chest pain or sob. Exam Const: General: cooperative, healthy appearing, comfortable and overweight Nutritional Appearance: overweight Orientation/consciousness: oriented to person, oriented to place and oriented to time Resp: Auscultation: no crackles, no rales, no rhonchi, no wheezes and diminished lung sounds Cardio: Rate: tachycardic Rhythm: abnormal rhythm Heart sounds: no murmurs Peripheral pulses: dorsalis pedis present Neuro: General: oriented to person, oriented to place and oriented to time Extrem: Right lower extremity: no edema Left lower extremity: no edema Objective Data Vital Signs Vital Signs: Vital Signs - 24 hr 02/17/23 07:59 02/17/23 08:00 02/17/23 09:19 Temperature 97.5 F L Pulse Rate 110 H 117 H 117 H Respiratory Rate 21 H Blood Pressure 115/85 Pulse Oximetry 95 Oxygen Delivery Oxygen Flow Rate 02/17/23 08:00 02/17/23 10:00 02/17/23 11:50 Temperature 96.2 F L Pulse Rate 109 H 92 Respiratory Rate 22 H Blood Pressure 126/74 Pulse Oximetry 91 Oxygen Delivery Room Air Oxygen Flow Rate 02/17/23 12:00 02/17/23 14:00 02/17/23 12:00 Temperature Pulse Rate 98 100 Respiratory Rate Blood Pressure Pulse Oximetry Oxygen Delivery Room Air Oxygen Flow Rate 02/17/23 15:11 02/17/23 16:00 02/17/23 16:00 Temperature 97.2 F L Pulse Rate 93 93 Respiratory Rate 24 H Blood Pressure 111/68 Pulse Oximetry 96 93 Oxygen Delivery Nasal Cannula Oxygen Flow Rate 2 02/17/23 18:00 02/17/23 18:52 02/17/23 20:00 Temperature 97 F L Pulse Rate 115 H 99 Respiratory Rate 20 Blood Pressure 126/80 Pulse Oximetry 91 95 Oxygen Delivery Nasal Cannula Oxygen Flow Rate 2 02/17/23 21:04 02/17/23 21:06 02/17/23 20:00 Temperature Pulse Rate 108 H 110 H 99 Respiratory Rate 20 Blood Pressure 126/80 Pulse Oximetry 95 Oxygen Delivery Nasal Cannula Oxygen Flow Rate 2 02/17/23 20:00 02/17/23 20:00 02/17/23 22:00 Temperature Pulse Rate 1
[2023-02-18 08:33] LABS: Glucose Point of Care 112 mg/dl (65-105)
[2023-02-18] MEDS: ALPRAZolam (*CRX) 0.25 MG TABLET PO (08:37)
[2023-02-18] MEDS: ACETAMINOPHEN 325 MG TABLET 650 MG PO (08:37)
[2023-02-18] MEDS: GABAPENTIN 400 MG CAPSULE 1200 MG PO (08:39)
[2023-02-18] MEDS: ROSUVASTATIN 10 MG TABLET 20 MG PO (08:40)
[2023-02-18] MEDS: buPROPion HCL XL (24 HR) 150 MG TABCR 300 MG PO (08:40)
[2023-02-18] MEDS: APIXABAN 5 MG TABLET PO ×2 (08:41→20:48)
[2023-02-18] MEDS: SOTALOL HCL 80 MG TABLET PO ×2 (08:41→20:48)
[2023-02-18] MEDS: guaiFENesin 600 MG/DEXTROMETHORPHAN 30 MG SR TAB 12 HR 1 TAB PO ×2 (08:41→20:48)
--- NOTE | 2023-02-18 10:45 | ECG_ITS ---
Measurements Intervals [place] Rate: 81 P: [place]: 0 QRS: 65 QRSD: 96 T: 66 QT: 370 QTc: 431 Interpretive Statements ATRIAL FIBRILLATION ABNORMAL ECG COMPARED TO ECG 02/17/2023 23:16:14 NO SIGNIFICANT CHANGES Electronically Signed On 02-18-2023 17:01:10 CDT by Too Hill M.D.
[2023-02-18 11:43] LABS: Glucose Point of Care 159 mg/dl (65-105)
--- NOTE | 2023-02-18 12:30 | PM.IMPN ---
Progress Note: A&P Assessment and Plan (1) Atrial fibrillation with rapid ventricular response: Code(s): I48.91 - Unspecified atrial fibrillation Status: Acute Assessment and Plan: EKG (02/16/23) shows new onset afib RVR with a rate in the 130s EKG (02/17/23) shows afib with heart rate in 110, QTc 450 Current heart rate is better controlled in the 90s Cardizem continue at this time Will stop Bystolic Started on Sotalol 80mg PO Q12H tele monitor Trend heart rate Cardiology consulted thank you for your help Started on Eliquis at outside facility, continue Lovenox for now, phan out the Eliquis Cardioversion and EDIS scheduled for tomorrow (2) Tobacco abuse: Code(s): Z72.0 - Tobacco use Status: Acute Assessment and Plan: Continues to smoke Patch and gum added to mar Smoking cessation education needed at discharge (3) COPD (chronic obstructive pulmonary disease): Code(s): J44.9 - Chronic obstructive pulmonary disease, unspecified Status: Acute Assessment and Plan: Chronic and stable No indication for supplemental oxygen Albuterol inhaler continued Will have her follow up with pulmonology for inhaler suggestions outpatient trend respiratory status (4) Morbid (severe) obesity due to excess calories: Code(s): E66.01 - Morbid (severe) obesity due to excess calories Status: Acute Assessment and Plan: BMI is 39.7 Consider watch parts grinder consult low fat diabetic diet (5) MARK (obstructive sleep apnea): Code(s): G47.33 - Obstructive sleep apnea (adult) (pediatric) Status: Acute Assessment and Plan: No use of current CPAP/BiPAP Did have a sleep study High pulm HTN noted on the Echo (6) Type 2 diabetes mellitus with diabetic neuropathy, without long-term current use of insulin: Code(s): E11.40 - Type 2 diabetes mellitus with diabetic neuropathy, unspecified Status: Acute Assessment and Plan: Current glucose is 118 A1c has been in the 5s ISS Accu Cheks AC/HS Trend glucose Adjust therapy as indicated (7) Essential hypertension: Code(s): I10 - Essential (primary) hypertension Status: Acute Assessment and Plan: BP is stable at 115/74 Currently lisinopril and Bystolic is on hold Restart medications as indicated Trend BP Adjust therapy as indicated (8) Dyslipidemia: Code(s): E78.5 - Hyperlipidemia, unspecified Status: Acute Assessment and Plan: Continue rosuvastatin at this time (9) Congestive heart failure: Code(s): I50.9 - Heart failure, unspecified Status: Acute Assessment and Plan: Complaints of shortness of breath BNP elevated at 2310 Echo shows grade 2 diastolic dysfunction Appears to be chronic diastolic heart failure unsure if in acute exacerbation Continue to trend urine output could be contributing to the current symptoms One dose of lasix given Trend daily weights Plan Apnea link to assess for nocturnal hypoxia. Could also be related to obesity hypoventilation syndrome component as well It appears that she will need nocturnal oxygen Time Spent With Patient Time: 52 minutes Time with patient: Greater than 35 minutes Subjective Date/time seen: 02/18/231229 Interval history: 02/18/231229 Patient is a little upset that she is unable to go home. She is still on the Cardizem which has been increased. She denies any chest pain, weakness, nausea, vomiting, diarrhea, or constipation. She should be able to have a EDIS and cardioversion in the am. She is still in A.fib, however, heart rate is better controlled. Prior auth has been initiated. 02/17/23 0900 Patient is doing ok. She complained of a little bit of left sided chest pain, however stated it was when she coughed, and it re
--- NOTE | 2023-02-18 12:30 | P.PNIM_ITS ---
Progress Note: A&P Assessment and Plan (1) Atrial fibrillation with rapid ventricular response: Code(s): I48.91 - Unspecified atrial fibrillation Status: Acute Assessment and Plan: * EKG (02/16/23) shows new onset afib RVR with a rate in the 130s * EKG (02/17/23) shows afib with heart rate in 110, QTc 450 * Current heart rate is better controlled in the 90s * Cardizem continue at this time * Will stop Bystolic * Started on Sotalol 80mg PO Q12H * tele monitor * Trend heart rate * Cardiology consulted thank you for your help * Started on Eliquis at outside facility, continue Lovenox for now, phan out the Eliquis * Cardioversion and EDIS scheduled for tomorrow (2) Tobacco abuse: Code(s): Z72.0 - Tobacco use Status: Acute Assessment and Plan: * Continues to smoke * Patch and gum added to mar * Smoking cessation education needed at discharge (3) COPD (chronic obstructive pulmonary disease): Code(s): J44.9 - Chronic obstructive pulmonary disease, unspecified Status: Acute Assessment and Plan: * Chronic and stable * No indication for supplemental oxygen * Albuterol inhaler continued * Will have her follow up with pulmonology for inhaler suggestions outpatient * trend respiratory status (4) Morbid (severe) obesity due to excess calories: Code(s): E66.01 - Morbid (severe) obesity due to excess calories Status: Acute Assessment and Plan: * BMI is 39.7 * Consider grain elevator operator consult * low fat diabetic diet (5) MARK (obstructive sleep apnea): Code(s): G47.33 - Obstructive sleep apnea (adult) (pediatric) Status: Acute Assessment and Plan: * No use of current CPAP/BiPAP * Did have a sleep study * High pulm HTN noted on the Echo (6) Type 2 diabetes mellitus with diabetic neuropathy, without long-term current use of insulin: Code(s): E11.40 - Type 2 diabetes mellitus with diabetic neuropathy, unspecified Status: Acute Assessment and Plan: * Current glucose is 118 * A1c has been in the 5s * ISS * Accu Cheks AC/HS * Trend glucose * Adjust therapy as indicated (7) Essential hypertension: Code(s): I10 - Essential (primary) hypertension Status: Acute Assessment and Plan: * BP is stable at 115/74 * Currently lisinopril and Bystolic is on hold * Restart medications as indicated * Trend BP * Adjust therapy as indicated (8) Dyslipidemia: Code(s): E78.5 - Hyperlipidemia, unspecified Status: Acute Assessment and Plan: * Continue rosuvastatin at this time (9) Congestive heart failure: Code(s): I50.9 - Heart failure, unspecified Status: Acute Assessment and Plan: * Complaints of shortness of breath * BNP elevated at 2310 * Echo shows grade 2 diastolic dysfunction * Appears to be chronic diastolic heart failure unsure if in acute exacerbation * Continue to trend urine output * could be contributing to the current symptoms * One dose of lasix given * Trend daily weights Plan Apnea link to assess for nocturnal hypoxia. Could also be related to obesity hypoventilation syndrome component as well It appears that she will need nocturnal oxygen Time Spent With
[2023-02-18 16:37] LABS: Glucose Point of Care 169 mg/dl (65-105)
[2023-02-18] MEDS: GABAPENTIN 300 MG CAPSULE 600 MG PO (17:39)
[2023-02-18 20:28] LABS: Glucose Point of Care 127 mg/dl (65-105)
[2023-02-19] VITALS (27 sets, daily range): BP systolic 99–147; BP diastolic 54–98; PULSE 53–105; RESP 12–23; TEMP 35.9–36.3; O2SAT 90–98
--- NOTE | 2023-02-19 | ECHO_ITS ---
Patient Info Name: Charity Mclean Age: 47 years : 1975 Gender: Female Ht: 64 in Wt: 231 lbs BSA: 2.23 m2 HR: 104 bpm Technical Quality: Good Exam Date: 02/19/2023 11:13 AM Exam Location: [facility] Patient Status: Inpatient Admit Date: 02/17/2023 Staff Ordering Physician: Jonathon Villarreal DO Entry Level Marketing Representative: Mary Choi RDCS Attending Provider: Ashanti Jim MD Referring Physician: Phil BRITT; Exam Type: CA echo transesophageal Study Info Indications I48.1 - Persistent atrial fibrillation Complete two-dimensional, color flow and Doppler transesophageal study is performed. Procedure Details Risks/benefits/alternative to EDIS discuss with patient and she is agreeable to procedure. Patient was monitored electrocardiographically, vitals and pulse ox. She was in atrial fibrillation at 120 bpm, BP 125/75 mmHg, puls ox 95%. Sedation provided by anesthesiology service. Cetacaine spray x1 to posterior oropharynx. EDIS probe advanced into esophagus without incident. Multiple images obtained at various levels of esophagus. EDIS probe withdrawn and no blood noted on EDIS probe tip. Patient tolerated procedure, no complications. Summary 1. Transesophageal echocardiogram. 2. Left ventricular chamber dimension is normal. 3. The left ventricular diastolic function is indeterminate as it was not assessed. 4. Left ventricular systolic function is normal with an ejection fraction of 60-65% by visual estimation. 5. There is mild concentric increased left ventricular wall thickness. 6. Left atrial chamber dimension is moderately enlarged. 7. The mitral valve has moderately calcified annulus. 8. There is trace mitral valve regurgitation. 9. There is mild tricuspid valve regurgitation. Left Ventricle Left ventricular systolic function is normal with an ejection fraction of 60-65% by visual estimation. The left ventricular diastolic function is indeterminate as it was not assessed. Transesophageal echocardiogram. Left ventricular chamber dimension is normal. There is mild concentric increased left ventricular wall thickness. Right Ventricle Right ventricular chamber dimension is normal. Right ventricular systolic function is normal. Left Atria Left atrial chamber dimension is moderately enlarged. Right Atria Right atrial chamber dimension is normal. Atrial Appendage There is no thrombus visualized in the left atrial appendage. Aortic Valve The aortic valve is trileaflet. There is no aortic valve stenosis. There is no aortic valve regurgitation. Pulmonic Valve There is no pulmonic regurgitation. Mitral Valve The mitral valve has moderately calcified annulus. There is no mitral valve stenosis. There is trace mitral valve regurgitation. Tricuspid Valve RVSP is not measured. There is mild tricuspid valve regurgitation. Pericardium/Pleural There is no pericardial effusion. Inferior Vena Cava Inferior vena cava is not well visualized. Aorta The aortic root size at the sinus of Valsalva is normal. Report Signatures
--- NOTE | 2023-02-19 | ECG_ITS ---
Measurements Intervals [place] Rate: 96 P: [place]: 0 QRS: 66 QRSD: 93 T: 63 QT: 329 QTc: 417 Interpretive Statements ATRIAL FIBRILLATION ABNORMAL ECG COMPARED TO ECG 02/18/2023 10:32:18 NO SIGNIFICANT CHANGES Electronically Signed On 02-19-2023 16:22:58 CDT by Too Hill M.D.
--- NOTE | 2023-02-19 | ECG_ITS ---
Measurements Intervals [place] Rate: 62 P: 56 [place]: 150 QRS: 62 QRSD: 92 T: 64 QT: 417 QTc: 425 Interpretive Statements SINUS RHYTHM POSSIBLE LEFT ATRIAL ENLARGEMENT [-0.1mV P WAVE IN V1/V2] COMPARED TO ECG 02/19/2023 10:02:48 SINUS RHYTHM NOW PRESENT Electronically Signed On 02-19-2023 16:26:10 CDT by Gemini Montano M.D.
[2023-02-19] MEDS: dilTIAZem 100 MG/100 ML 100 MG/100 ML BAG 15 MG IV CONT (03:41)
[2023-02-19 05:03] LABS: Basophils Absolute Auto 0.1 K/mm3 (0.0-0.1); Basophils Percent Auto 0.8 % (0.2-1.2); Eosinophils Absolute Auto 0.1 K/mm3 (0-0.3); Eosinophils Percent Auto 2.3 % (0-4.4); Hematocrit 38.2 % (37.0-47.0); Hemoglobin 12.2 g/dL (12.0-15.0); Immature Granulocyte Absolute 0.02 K/mm3 (0.00-0.031); Immature Granulocyte Percent A 0.3 % (0-0.5); Lymphocytes Absolute Auto 1.37 K/mm3 (0.9-3.2); Lymphocytes Percent Auto 22.1 % (18.3-44.2); Mean Corpuscular HGB Conc 31.9 g/dl (32-36); Mean Corpuscular Hemoglobin 33.5 pg (26-34); Mean Corpuscular Volume 104.9 fl (80-100); Mean Platelet Volume 9.6 fl (7.4-10.4); Monocytes Absolute Auto 0.7 K/mm3 (0.1-0.6); Monocytes Percent Auto 10.6 % (2.6-8.5); Neutrophils Percent Auto 63.9 % (45.5-73.1); Platelet Count Result 212 k/mm3 (150-375); Red Blood Count 3.64 M/mm3 (4.2-5.4); Red Cell Distribution Width 13.5 % (11.5-14.5); White Blood Count 6.2 K/mm3 (4.5-10.0)
[2023-02-19 05:27] LABS: Alanine Aminotransferase 39 U/L (6-35); Albumin Level 3.5 g/dL (3.5-5.1); Alkaline Phosphatase 61 U/L (38-126); Anion Gap 0 mmol/L (8-16); Aspartate Amino Transferase 24 U/L (14-36); Bilirubin,Total 0.3 mg/dL (0.2-1.3); Blood Urea Nitrogen 14 mg/dL (7-17); Calcium 8.2 mg/dL (8.4-10.2); Carbon Dioxide 36 mmol/L (22-30); Chloride 102 mmol/L (98-107); Estimated CRCL calculation 136 ml/min; Estimated Glomerular Filt Rate > 60; Glucose 111 mg/dL (65-110); Magnesium 2.2 mg/dL (1.6-2.3); Potassium 4.7 mmol/L (3.4-5.0); Sodium 138 mmol/L (137-145)
[2023-02-19] MEDS: SODIUM CHLORIDE 0.9% IV 1,000 ML 30 ML IV CONT (05:51)
[2023-02-19] MEDS: ACETAMINOPHEN 325 MG TABLET 650 MG PO ×2 (07:42→12:48)
[2023-02-19] MEDS: SOTALOL HCL 80 MG TABLET PO ×2 (09:47→20:24)
[2023-02-19] MEDS: APIXABAN 5 MG TABLET PO ×2 (09:47→20:24)
[2023-02-19] MEDS: buPROPion HCL XL (24 HR) 150 MG TABCR 300 MG PO (09:48)
--- NOTE | 2023-02-19 10:26 | WPDANESEPPF ---
Anes - Initial Pre Proc Eval Procedure: Operation Date: 02/19/23 11:00 Proposed Procedures p Trans Esophageal Echo - Jonathon Villarreal DO s Electrical Cardioversion - Jonathon Villarreal DO Date/Time: 02/19/23 10:26 Surgeon: Ashanti Jim MD Pre Op Diagnosis: New onset Afib RVR Patient Data Age: 47 Gender: F Height: 1.63 m Weight: 105 kg Last Vital Signs Temp 35.9 C L 02/19/23 08:23 Pulse 100 02/19/23 09:47 Resp 22 H 02/19/23 08:23 BP 140/98 H 02/19/23 08:23 Pulse Ox 94 02/19/23 08:23 O2 Del Method Nasal Cannula 02/19/23 04:00 O2 Flow Rate 2 02/19/23 04:00 Allergies Allergy/AdvReac Type Severity Reaction Status Date / Time cefadroxil Allergy Unknown Rash Verified 02/16/23 06:02 cefuroxime Allergy Unknown unknown Verified 02/16/23 06:02 Home Medications Medication Instructions Recorded Confirmed Type blood sugar diagnostic (OneTouch #100 ea 09/27/21 02/16/23 Rx Ultra Test strips) blood-glucose meter (OneTouch #1 ea 09/27/21 02/16/23 Rx Ultra2 Meter) lancets (AkeLexTouch UltraSoft #100 ea 09/27/21 02/16/23 Rx Lancets) amlodipine 10 mg tablet 10 mg PO DAILY #90 tabs 08/14/22 02/16/23 Rx albuterol sulfate 90 mcg/actuation 2 puff inhalation Q4H PRN 09/28/22 02/16/23 Rx aerosol inhaler (Ventolin HFA) shortness of breath or wheezing #6.7 grams bupropion HCl 300 mg 24 hr tablet, 300 mg PO QAM #30 tabs 10/02/22 02/16/23 Rx extended release (Wellbutrin XL) rosuvastatin 20 mg tablet 20 mg PO DAILY #90 tabs 10/02/22 02/16/23 Rx metformin 500 mg tablet 500 mg PO BID #180 tabs 10/05/22 02/16/23 Rx nebivolol 10 mg tablet (Bystolic) 10 mg PO DAILY #90 tabs 12/21/22 02/16/23 Rx alprazolam 0.5 mg tablet (Xanax) 0.25 mg PO BID PRN anxiety #15 tabs 02/08/23 02/16/23 Rx apixaban 5 mg tablet (Eliquis) 5 mg PO Q12HR #60 tabs 02/16/23 Rx gabapentin 300 mg capsule 1,200 mg PO DAILY 02/16/23 02/16/23 History gabapentin 300 mg capsule 600 mg PO QPM 02/16/23 02/16/23 History levonorgestrel 21 mcg/24 hours (8 1 device intrauterine ONCE 02/16/23 02/16/23 History yrs) 52 mg intrauterine device (Mirena) lisinopril 40 mg tablet 40 mg PO DAILY 02/16/23 02/16/23 History Laboratory Tests 02/18/23 02/18/23 02/18/23 11:36 16:28 19:53 WBC RBC Hgb Hct MCV MCH MCHC RDW Plt Count MPV Immature Gran % (Auto) Neut % (Auto) Lymph % (Auto) [place] % (Auto) Eos % (Auto) Baso % (Auto) Lymph # (Auto) [place] # (Auto) Eos # (Auto) Baso # (Auto) Abs Immat Gran (auto) Absolute Neuts (auto) Absolute Nucleated RBC Nucleated RBC % Sodium Potassium Chloride Carbon Dioxide Anion Gap BUN Creatinine Estim Creat Clear Calc Estimated GFR Glucose POC Capillary Glucose 159 mg/dl H mg/dl 169 mg/dl H mg/dl 127 mg/dl H mg/dl (65-105) (65-105) (65-105) Calcium Magnesium Total Bilirubin AST ALT Alkaline Phosphatase Total Protein Albumin 02/19/23 02/19/23 04:38 04:38 WBC 6.2 K/mm3 K/mm3 (4.5-10.0) RBC 3.64 M/mm3 L M/mm3 (4.2-5.4) Hgb 12.2 g/dL g/dL (12.0-15.0) Hct 38.2 % % (37.0-47.0) MCV 104.9 fl H fl (80-100) MCH 33.5 pg pg (26-34) MCHC 31.9 g/dl L g/dl (32-36) RDW 13.5 % % (11.5-14.5) Plt Count 212 k/mm3 k/mm3 (150-375) MPV 9.6 fl fl (7.4-10.4) Immature Gran % (Auto) 0.3 % % (0-0.5) Neut % (Auto) 63.9 % % (45.5-73.1) Lymph % (Auto) 22.1 % % (18.3-44.2) [place] % (Auto) 10.6
--- NOTE | 2023-02-19 11:00 | P.PNIM_ITS ---
Progress Note: A&P Assessment and Plan (1) Atrial fibrillation with rapid ventricular response: Code(s): I48.91 - Unspecified atrial fibrillation Status: Acute Assessment and Plan: * EKG (02/16/23) shows new onset afib RVR with a rate in the 130s * EKG (02/17/23) shows afib with heart rate in 110, QTc 450 * Current heart rate is better controlled in the 90s * Cardizem discontinued * Will stop Bystolic * Started on Sotalol 80mg PO Q12H * tele monitor * Trend heart rate * Cardiology consulted thank you for your help * Started on Eliquis at outside facility, continue Lovenox for now, phan out the Eliquis * Cardioversion and EDIS preformed this am (2) Tobacco abuse: Code(s): Z72.0 - Tobacco use Status: Acute Assessment and Plan: * Continues to smoke * Patch and gum added to mar * Smoking cessation education needed at discharge (3) COPD (chronic obstructive pulmonary disease): Code(s): J44.9 - Chronic obstructive pulmonary disease, unspecified Status: Acute Assessment and Plan: * Chronic and stable * No indication for supplemental oxygen * Albuterol inhaler continued * Will have her follow up with pulmonology for inhaler suggestions outpatient * trend respiratory status (4) Morbid (severe) obesity due to excess calories: Code(s): E66.01 - Morbid (severe) obesity due to excess calories Status: Acute Assessment and Plan: * BMI is 39.7 * Consider sql programmer analyst consult * low fat diabetic diet (5) MARK (obstructive sleep apnea): Code(s): G47.33 - Obstructive sleep apnea (adult) (pediatric) Status: Acute Assessment and Plan: * No use of current CPAP/BiPAP * Did have a sleep study * High pulm HTN noted on the Echo (6) Type 2 diabetes mellitus with diabetic neuropathy, without long-term current use of insulin: Code(s): E11.40 - Type 2 diabetes mellitus with diabetic neuropathy, unspecified Status: Acute Assessment and Plan: * Current glucose is 111 * A1c has been in the 5's * ISS * Accu Cheks AC/HS * Trend glucose * Adjust therapy as indicated (7) Essential hypertension: Code(s): I10 - Essential (primary) hypertension Status: Acute Assessment and Plan: * BP is stable at 120/74 * Currently lisinopril * Bystolic has been stopped and Sotalol is being continued * Restart medications as indicated * Trend BP * Adjust therapy as indicated (8) Dyslipidemia: Code(s): E78.5 - Hyperlipidemia, unspecified Status: Acute Assessment and Plan: * Continue rosuvastatin at this time (9) Congestive heart failure: Code(s): I50.9 - Heart failure, unspecified Status: Acute Assessment and Plan: * Complaints of shortness of breath * BNP elevated at 2310 * Echo shows grade 2 diastolic dysfunction * Appears to be chronic diastolic heart failure unsure if in acute exacerbation * Continue to trend urine output * could be contributing to the current symptoms * Trend daily weights Plan Apnea link to assess for nocturnal hypoxia. Could also be related to obesity hypoventilation syndrome component as well It appears that she will need nocturnal oxygen Time Spent With Pat
--- NOTE | 2023-02-19 11:00 | PM.IMPN ---
Progress Note: A&P Assessment and Plan (1) Atrial fibrillation with rapid ventricular response: Code(s): I48.91 - Unspecified atrial fibrillation Status: Acute Assessment and Plan: EKG (02/16/23) shows new onset afib RVR with a rate in the 130s EKG (02/17/23) shows afib with heart rate in 110, QTc 450 Current heart rate is better controlled in the 90s Cardizem discontinued Will stop Bystolic Started on Sotalol 80mg PO Q12H tele monitor Trend heart rate Cardiology consulted thank you for your help Started on Eliquis at outside facility, continue Lovenox for now, phan out the Eliquis Cardioversion and EDIS preformed this am (2) Tobacco abuse: Code(s): Z72.0 - Tobacco use Status: Acute Assessment and Plan: Continues to smoke Patch and gum added to mar Smoking cessation education needed at discharge (3) COPD (chronic obstructive pulmonary disease): Code(s): J44.9 - Chronic obstructive pulmonary disease, unspecified Status: Acute Assessment and Plan: Chronic and stable No indication for supplemental oxygen Albuterol inhaler continued Will have her follow up with pulmonology for inhaler suggestions outpatient trend respiratory status (4) Morbid (severe) obesity due to excess calories: Code(s): E66.01 - Morbid (severe) obesity due to excess calories Status: Acute Assessment and Plan: BMI is 39.7 Consider hospice plan administrator consult low fat diabetic diet (5) MARK (obstructive sleep apnea): Code(s): G47.33 - Obstructive sleep apnea (adult) (pediatric) Status: Acute Assessment and Plan: No use of current CPAP/BiPAP Did have a sleep study High pulm HTN noted on the Echo (6) Type 2 diabetes mellitus with diabetic neuropathy, without long-term current use of insulin: Code(s): E11.40 - Type 2 diabetes mellitus with diabetic neuropathy, unspecified Status: Acute Assessment and Plan: Current glucose is 111 A1c has been in the 5's ISS Accu Cheks AC/HS Trend glucose Adjust therapy as indicated (7) Essential hypertension: Code(s): I10 - Essential (primary) hypertension Status: Acute Assessment and Plan: BP is stable at 120/74 Currently lisinopril Bystolic has been stopped and Sotalol is being continued Restart medications as indicated Trend BP Adjust therapy as indicated (8) Dyslipidemia: Code(s): E78.5 - Hyperlipidemia, unspecified Status: Acute Assessment and Plan: Continue rosuvastatin at this time (9) Congestive heart failure: Code(s): I50.9 - Heart failure, unspecified Status: Acute Assessment and Plan: Complaints of shortness of breath BNP elevated at 2310 Echo shows grade 2 diastolic dysfunction Appears to be chronic diastolic heart failure unsure if in acute exacerbation Continue to trend urine output could be contributing to the current symptoms Trend daily weights Plan Apnea link to assess for nocturnal hypoxia. Could also be related to obesity hypoventilation syndrome component as well It appears that she will need nocturnal oxygen Time Spent With Patient Time: 48 minutes Time with patient: Greater than 35 minutes Subjective Date/time seen: 02/19/23 11:00 Interval history: 02/19/23 1100 Patient is doing ok. She is denying any chest pain, shortness of breath, nausea, vomiting. She is complaining of a headache. She is currently still on Cardizem. She did undergo a cardioversion. Currently she is in SB with a heart rate in the 50s. She is doing ok otherwise. Still awaiting decision for the Eliquis. Breathing has been a concern, will continue to trend vitals signs, she will also need supplement oxygen at bedtime. 02/18/23 1230 Patient is a little upset that she is unable to g
--- NOTE | 2023-02-19 11:13 | PC.NURSE ---
1100- to OR for EDIS with possible cardioversion accompanied by staff
--- NOTE | 2023-02-19 12:09 | WPDCARDVER ---
Cardioversion Cardioversion Date of procedure: 02/19/23 Procedure: DC Cardioversion Pre-op diagnosis: Atrial fibrillation Post-op diagnosis: Same Indications: Symptomatic atrial fibrillation Description of procedure: Risks/benefits/alternative to DC cardioversion discuss with patient. Immediately after EDIS performed which showed no left atrial or left atrial appendage thrombus, defibrillator pads placed on anterior and posterior chest wall. Patient remained sedated as per anesthesiology service. Defibrillation set at 200 J biphasic synchronized energy x1 and was successful at restoring sinus rhythm. Patient tolerated procedure well with no immediate complications. Sedation: As per anesthesiology service. Conclusion: 1. Successful DC cardioversion from atrial fibrillation to sinus rhythm. [facility] [place] for Cardioversion: Cardioversion
--- NOTE | 2023-02-19 12:13 | PM.PNCARD ---
Progress Note: A&P Assessment and Plan (1) Atrial fibrillation with rapid ventricular response: Code(s): I48.91 - Unspecified atrial fibrillation Status: Acute Assessment and Plan: Probably due to untreated MARK (as she awaits sleep study), recent URI?. [id number] 3. Started Sotalol 80 mg every 12 hours and Eliquis 5 mg BID. Continue Diltiazem drip for rate control and stop it if she cardioverts to sinus rhythm or HR in atrial fib is <70 bpm. Check EKG every 1-2 hours post Sotalol dose to check QT interval. Tolerating Sotalol well. Had successful EDIS/DC Cardioversion with anesthesia this morning. Stop Diltiazem drip. (2) Tobacco abuse: Code(s): Z72.0 - Tobacco use Status: Acute Assessment and Plan: Counseled regarding smoking cessation. (3) COPD (chronic obstructive pulmonary disease): Code(s): J44.9 - Chronic obstructive pulmonary disease, unspecified Status: Acute Assessment and Plan: Manage by hospitalist. (4) MARK (obstructive sleep apnea): Code(s): G47.33 - Obstructive sleep apnea (adult) (pediatric) Status: Acute Assessment and Plan: Sees Dr. Lopez. (5) Morbid (severe) obesity due to excess calories: Code(s): E66.01 - Morbid (severe) obesity due to excess calories Status: Acute (6) Type 2 diabetes mellitus with diabetic neuropathy, without long-term current use of insulin: Code(s): E11.40 - Type 2 diabetes mellitus with diabetic neuropathy, unspecified Status: Acute Assessment and Plan: Manage by hospitalist. (7) Essential hypertension: Code(s): I10 - Essential (primary) hypertension Status: Acute Assessment and Plan: Stable. (8) Dyslipidemia: Code(s): E78.5 - Hyperlipidemia, unspecified Status: Acute Assessment and Plan: On Rosuvastatin. Subjective Date/time seen: 02/19/23 12:13 Interval history: Denies chest pain or sob. Exam Const: General: cooperative, healthy appearing, comfortable and overweight Nutritional Appearance: overweight Orientation/consciousness: oriented to person, oriented to place and oriented to time Resp: Auscultation: no crackles, no rales, no rhonchi, no wheezes and diminished lung sounds Cardio: Rate: tachycardic Rhythm: abnormal rhythm Heart sounds: no murmurs Peripheral pulses: dorsalis pedis present Neuro: General: oriented to person, oriented to place and oriented to time Extrem: Right lower extremity: no edema Left lower extremity: no edema Objective Data Vital Signs Vital Signs: Vital Signs - 24 hr 02/18/23 12:45 02/18/23 14:00 02/18/23 16:00 Temperature 97.4 F L Pulse Rate 88 94 82 Respiratory Rate 20 Blood Pressure 108/59 L Pulse Oximetry 97 Oxygen Delivery Oxygen Flow Rate 02/18/23 16:00 02/18/23 16:00 02/18/23 18:00 Temperature Pulse Rate 80 79 Respiratory Rate Blood Pressure Pulse Oximetry 97 Oxygen Delivery Oxygen Flow Rate 02/18/23 20:33 02/18/23 20:48 02/18/23 20:00 Temperature 97.2 F L Pulse Rate 79 89 83 Respiratory Rate 20 Blood Pressure 115/70 Pulse Oximetry 92 Oxygen Delivery Oxygen Flow Rate 02/18/23 20:00 02/18/23 21:33 02/18/23 22:00 Temperature Pulse Rate 83 89 77 Respiratory Rate 20 Blood Pressure Pulse Oximetry 92 Oxygen Delivery Nasal Cannula Oxygen Flow Rate 2 02/19/23 00:00 02/19/23 00:00 02/19/23 00:27 Temperature 97.4 F L Pulse Rate 75 75 75 Respiratory Rate 20 20 Blood Pressure 99/63 L Pulse Oximetry 92 94 Oxygen Delivery Nasal Cannula Oxygen Flow Rate 2 02/19/23 02:00 02/19/23 03:41 02/19/23 04:00 Temperature Pulse Rate 84 82 87 Respiratory Rate Blood Pressure Pulse Oximetry Oxygen Delivery Oxygen Flow Rate 02/19/23 04:00 02/19/23 04:26 02/19/23 06:00 Temperature 97.4 F L Pulse Rate 87 84 86 Respiratory Rate 20 20 Blood Pressure 115/56
[2023-02-19 12:45] LABS: Glucose Point of Care 117 mg/dl (65-105)
[2023-02-19] MEDS: GABAPENTIN 400 MG CAPSULE 1200 MG PO (12:49)
[2023-02-19] MEDS: ROSUVASTATIN 10 MG TABLET 20 MG PO (12:49)
[2023-02-19] MEDS: guaiFENesin 600 MG/DEXTROMETHORPHAN 30 MG SR TAB 12 HR 1 TAB PO ×2 (12:51→20:49)
--- NOTE | 2023-02-19 12:52 | PC.NURSE ---
1230 pt returned to room post procedure- a/o vss monitor SR 61- pt states headache @ 2 on painscale - stated she did not want imitrex but only tylenol for headache pain
[2023-02-19] MEDS: GABAPENTIN 300 MG CAPSULE 600 MG PO (16:59)
[2023-02-19 17:00] LABS: Glucose Point of Care 145 mg/dl (65-105)
[2023-02-19] MEDS: ALPRAZolam (*CRX) 0.25 MG TABLET PO (20:24)
[2023-02-19 20:27] LABS: Glucose Point of Care 154 mg/dl (65-105)
--- NOTE | 2023-02-19 21:31 | PC.NURSE ---
patient was asleep in bed without o2 on. patients o2 sat decreased to 80. patient was placed on 2lnc.
[2023-02-20] VITALS (17 sets, daily range): BP systolic 114–155; BP diastolic 53–73; PULSE 66–92; RESP 20–22; TEMP 35.9–36.4; O2SAT 87–98
[2023-02-20] MEDS: ACETAMINOPHEN 325 MG TABLET 650 MG PO ×2 (02:31→09:19)
[2023-02-20 04:47] LABS: Basophils Absolute Auto 0.1 K/mm3 (0.0-0.1); Basophils Percent Auto 0.6 % (0.2-1.2); Eosinophils Absolute Auto 0.2 K/mm3 (0-0.3); Eosinophils Percent Auto 1.9 % (0-4.4); Hematocrit 40.6 % (37.0-47.0); Hemoglobin 12.8 g/dL (12.0-15.0); Immature Granulocyte Absolute 0.03 K/mm3 (0.00-0.031); Immature Granulocyte Percent A 0.4 % (0-0.5); Lymphocytes Absolute Auto 0.86 K/mm3 (0.9-3.2); Lymphocytes Percent Auto 10.9 % (18.3-44.2); Mean Corpuscular HGB Conc 31.5 g/dl (32-36); Mean Corpuscular Hemoglobin 32.9 pg (26-34); Mean Corpuscular Volume 104.4 fl (80-100); Mean Platelet Volume 9.5 fl (7.4-10.4); Monocytes Absolute Auto 0.6 K/mm3 (0.1-0.6); Monocytes Percent Auto 8.1 % (2.6-8.5); Neutrophils Absolute Auto 6.1 K/mm3 (1.3-6.7); Neutrophils Percent Auto 78.1 % (45.5-73.1); Platelet Count Result 221 k/mm3 (150-375); Red Blood Count 3.89 M/mm3 (4.2-5.4); Red Cell Distribution Width 13.3 % (11.5-14.5); White Blood Count 7.9 K/mm3 (4.5-10.0)
[2023-02-20 05:00] LABS: Alanine Aminotransferase 42 U/L (6-35); Albumin Level 3.7 g/dL (3.5-5.1); Alkaline Phosphatase 69 U/L (38-126); Anion Gap -1 mmol/L (8-16); Aspartate Amino Transferase 24 U/L (14-36); Bilirubin,Total 0.4 mg/dL (0.2-1.3); Blood Urea Nitrogen 15 mg/dL (7-17); Calcium 8.2 mg/dL (8.4-10.2); Carbon Dioxide 39 mmol/L (22-30); Chloride 99 mmol/L (98-107); Estimated CRCL calculation 136 ml/min; Estimated Glomerular Filt Rate > 60; Glucose 116 mg/dL (65-110); Magnesium 2.2 mg/dL (1.6-2.3); Potassium 4.6 mmol/L (3.4-5.0); Sodium 137 mmol/L (137-145)
--- NOTE | 2023-02-20 07:56 | PM.PNCARD ---
Progress Note: A&P Assessment and Plan (1) Atrial fibrillation with rapid ventricular response: Code(s): I48.91 - Unspecified atrial fibrillation Status: Acute Assessment and Plan: Probably due to untreated MARK (as she awaits sleep study), recent URI?. [id number] 3. On Sotalol 80 mg every 12 hours and Eliquis 5 mg BID. Had successful EDIS/DC Cardioversion with anesthesia on 02/19/23, back in sinus rhythm. Check EKG. If she gets d/c home she can f/u with me in 1 week. (2) Tobacco abuse: Code(s): Z72.0 - Tobacco use Status: Acute Assessment and Plan: Counseled regarding smoking cessation. (3) COPD (chronic obstructive pulmonary disease): Code(s): J44.9 - Chronic obstructive pulmonary disease, unspecified Status: Acute Assessment and Plan: Manage by hospitalist. (4) MARK (obstructive sleep apnea): Code(s): G47.33 - Obstructive sleep apnea (adult) (pediatric) Status: Acute Assessment and Plan: Sees Dr. Lopez. (5) Morbid (severe) obesity due to excess calories: Code(s): E66.01 - Morbid (severe) obesity due to excess calories Status: Acute (6) Type 2 diabetes mellitus with diabetic neuropathy, without long-term current use of insulin: Code(s): E11.40 - Type 2 diabetes mellitus with diabetic neuropathy, unspecified Status: Acute Assessment and Plan: Manage by hospitalist. (7) Essential hypertension: Code(s): I10 - Essential (primary) hypertension Status: Acute Assessment and Plan: Stable. (8) Dyslipidemia: Code(s): E78.5 - Hyperlipidemia, unspecified Status: Acute Assessment and Plan: On Rosuvastatin. Subjective Date/time seen: 02/20/23 07:56 Interval history: Denies chest pain or sob. Exam Const: General: cooperative, healthy appearing, comfortable and overweight Nutritional Appearance: overweight Orientation/consciousness: oriented to person, oriented to place and oriented to time Resp: Auscultation: no crackles, no rales, no rhonchi, no wheezes and diminished lung sounds Cardio: Rate: regular rate Rhythm: regular rhythm Heart sounds: no murmurs Peripheral pulses: dorsalis pedis present Neuro: General: oriented to person, oriented to place and oriented to time Extrem: Right lower extremity: no edema Left lower extremity: no edema Objective Data Vital Signs Vital Signs: Vital Signs - 24 hr 02/19/23 08:23 02/19/23 09:47 02/19/23 08:15 Temperature 96.6 F L Pulse Rate 86 100 94 Respiratory Rate 22 H Blood Pressure 140/98 H Pulse Oximetry 94 Oxygen Delivery Oxygen Flow Rate 02/19/23 08:15 02/19/23 10:00 02/19/23 11:41 Temperature Pulse Rate 105 H 58 L Respiratory Rate 23 H Blood Pressure 111/54 L Pulse Oximetry 92 98 Oxygen Delivery Nasal Cannula Nasal Cannula Oxygen Flow Rate 2 4 02/19/23 11:46 02/19/23 12:01 02/19/23 12:06 Temperature Pulse Rate 56 L 58 L 62 Respiratory Rate 16 21 H 14 Blood Pressure 108/73 124/75 132/76 Pulse Oximetry 98 93 95 Oxygen Delivery Nasal Cannula Room Air Room Air Oxygen Flow Rate 2 02/19/23 12:11 02/19/23 12:17 02/19/23 11:51 Temperature Pulse Rate 58 L 53 L 59 L Respiratory Rate 22 H 12 15 Blood Pressure 120/74 115/68 Pulse Oximetry 94 94 98 Oxygen Delivery Room Air Room Air Room Air Oxygen Flow Rate 02/19/23 12:35 02/19/23 12:35 02/19/23 14:00 Temperature Pulse Rate 57 L 56 L 66 Respiratory Rate 20 Blood Pressure Pulse Oximetry 92 Oxygen Delivery Nasal Cannula Oxygen Flow Rate 2 02/19/23 17:11 02/19/23 16:00 02/19/23 16:00 Temperature 96.7 F L Pulse Rate 63 63 63 Respiratory Rate 18 18 Blood Pressure 144/67 H Pulse Oximetry 92 93 Oxygen Delivery Nasal Cannula Oxygen Flow Rate 2 02/19/23 18:00 02/19/23 20:24 02/19/23 20:35 Temperature 97.4 F L Pulse Rate 63 72 72 Respiratory Rate 20 Blood Pressure 1
[2023-02-20 07:58] LABS: Glucose Point of Care 166 mg/dl (65-105)
--- NOTE | 2023-02-20 09:00 | P.DS_ITS ---
DS: Admitting Diagnosis Discharge Date 02/20/23 0900 Admitting Diagnosis New onset afib RVR, nocturnal hypoxia DS: Discharge Diagnosis Discharge Diagnosis (1) Atrial fibrillation with rapid ventricular response: Code(s): I48.91 - Unspecified atrial fibrillation Status: Acute Assessment and Plan: * EKG (02/16/23) shows new onset afib RVR with a rate in the 130s * EKG (02/17/23) shows afib with heart rate in 110, QTc 450 * Current heart rate is better controlled in the 90s * Cardizem discontinued * Will stop Bystolic * Started on Sotalol 80mg PO Q12H * tele monitor * Trend heart rate * Cardiology consulted thank you for your help * Started on Eliquis at outside facility, continue Lovenox for now, phan out the Eliquis * Cardioversion and EDIS preformed on 02/19/23 (2) Tobacco abuse: Code(s): Z72.0 - Tobacco use Status: Acute Assessment and Plan: * Continues to smoke * Patch and gum added to mar * Smoking cessation education needed at discharge (3) COPD (chronic obstructive pulmonary disease): Code(s): J44.9 - Chronic obstructive pulmonary disease, unspecified Status: Acute Assessment and Plan: * Chronic and stable * No indication for supplemental oxygen * Albuterol inhaler continued * Will have her follow up with pulmonology for inhaler suggestions outpatient * trend respiratory status (4) Morbid (severe) obesity due to excess calories: Code(s): E66.01 - Morbid (severe) obesity due to excess calories Status: Acute Assessment and Plan: * BMI is 39.7 * Consider operations leader consult * low fat diabetic diet (5) MARK (obstructive sleep apnea): Code(s): G47.33 - Obstructive sleep apnea (adult) (pediatric) Status: Acute Assessment and Plan: * No use of current CPAP/BiPAP * Did have a sleep study * High pulm HTN noted on the Echo (6) Type 2 diabetes mellitus with diabetic neuropathy, without long-term current use of insulin: Code(s): E11.40 - Type 2 diabetes mellitus with diabetic neuropathy, unspecified Status: Acute Assessment and Plan: * Current glucose is 116 * A1c has been in the 5's * ISS * Accu Cheks AC/HS * Trend glucose * Adjust therapy as indicated (7) Essential hypertension: Code(s): I10 - Essential (primary) hypertension Status: Acute Assessment and Plan: * BP is stable at 155/73 * Currently lisinopril * Bystolic has been stopped and Sotalol is being continued * Restart medications as indicated * Trend BP * Adjust therapy as indicated (8) Dyslipidemia: Code(s): E78.5 - Hyperlipidemia, unspecified Status: Acute Assessment and Plan: * Continue rosuvastatin at this time (9) Congestive heart failure: Code(s): I50.9 - Heart failure, unspecified Status: Acute Assessment and Plan: * Complaints of shortness of breath * BNP elevated at 2310 * Echo shows grade 2 diastolic dysfunction * Appears to be chronic diastolic heart failure unsure if in acute exacerbation * Continue to trend urine output * could be contributing to the current symptoms * Trend daily weights Plan Apnea link to assess for nocturnal hypoxia. Could also be
--- NOTE | 2023-02-20 09:00 | PM.DS ---
DS: Admitting Diagnosis Discharge Date 02/20/23 0900 Admitting Diagnosis New onset afib RVR, nocturnal hypoxia DS: Discharge Diagnosis Discharge Diagnosis (1) Atrial fibrillation with rapid ventricular response: Code(s): I48.91 - Unspecified atrial fibrillation Status: Acute Assessment and Plan: EKG (02/16/23) shows new onset afib RVR with a rate in the 130s EKG (02/17/23) shows afib with heart rate in 110, QTc 450 Current heart rate is better controlled in the 90s Cardizem discontinued Will stop Bystolic Started on Sotalol 80mg PO Q12H tele monitor Trend heart rate Cardiology consulted thank you for your help Started on Eliquis at outside facility, continue Lovenox for now, phan out the Eliquis Cardioversion and EDIS preformed on 02/19/23 (2) Tobacco abuse: Code(s): Z72.0 - Tobacco use Status: Acute Assessment and Plan: Continues to smoke Patch and gum added to mar Smoking cessation education needed at discharge (3) COPD (chronic obstructive pulmonary disease): Code(s): J44.9 - Chronic obstructive pulmonary disease, unspecified Status: Acute Assessment and Plan: Chronic and stable No indication for supplemental oxygen Albuterol inhaler continued Will have her follow up with pulmonology for inhaler suggestions outpatient trend respiratory status (4) Morbid (severe) obesity due to excess calories: Code(s): E66.01 - Morbid (severe) obesity due to excess calories Status: Acute Assessment and Plan: BMI is 39.7 Consider corporate compliance officer consult low fat diabetic diet (5) MARK (obstructive sleep apnea): Code(s): G47.33 - Obstructive sleep apnea (adult) (pediatric) Status: Acute Assessment and Plan: No use of current CPAP/BiPAP Did have a sleep study High pulm HTN noted on the Echo (6) Type 2 diabetes mellitus with diabetic neuropathy, without long-term current use of insulin: Code(s): E11.40 - Type 2 diabetes mellitus with diabetic neuropathy, unspecified Status: Acute Assessment and Plan: Current glucose is 116 A1c has been in the 5's ISS Accu Cheks AC/HS Trend glucose Adjust therapy as indicated (7) Essential hypertension: Code(s): I10 - Essential (primary) hypertension Status: Acute Assessment and Plan: BP is stable at 155/73 Currently lisinopril Bystolic has been stopped and Sotalol is being continued Restart medications as indicated Trend BP Adjust therapy as indicated (8) Dyslipidemia: Code(s): E78.5 - Hyperlipidemia, unspecified Status: Acute Assessment and Plan: Continue rosuvastatin at this time (9) Congestive heart failure: Code(s): I50.9 - Heart failure, unspecified Status: Acute Assessment and Plan: Complaints of shortness of breath BNP elevated at 2310 Echo shows grade 2 diastolic dysfunction Appears to be chronic diastolic heart failure unsure if in acute exacerbation Continue to trend urine output could be contributing to the current symptoms Trend daily weights Plan Apnea link to assess for nocturnal hypoxia. Could also be related to obesity hypoventilation syndrome component as well It appears that she will need nocturnal oxygen DS: Summary Hospital Course Hospital Course: Patient is a 47-year-old female with a past medical history of COPD, MARK, hypertension, hyperlipidemia who presented to the ED at [place] in [place] for shortness of breath that had worsened over the last few days. Patient was a direct admit to IMU for new findings of AFib RVR. Patient was initiated on Cardizem and Cardiology was consulted. Cardiology initiated sotalol and the patient received multiple doses however was unable to cover herself back into sinus rhythm. Rate had remained in th
[2023-02-20] MEDS: GABAPENTIN 400 MG CAPSULE 1200 MG PO (09:20)
[2023-02-20] MEDS: ROSUVASTATIN 10 MG TABLET 20 MG PO (09:21)
[2023-02-20] MEDS: ALPRAZolam (*CRX) 0.25 MG TABLET PO (09:21)
[2023-02-20] MEDS: buPROPion HCL XL (24 HR) 150 MG TABCR 300 MG PO (09:21)
[2023-02-20] MEDS: APIXABAN 5 MG TABLET PO (09:22)
[2023-02-20] MEDS: SOTALOL HCL 80 MG TABLET PO (09:22)
[2023-02-20] MEDS: guaiFENesin 600 MG/DEXTROMETHORPHAN 30 MG SR TAB 12 HR 1 TAB PO (09:23)
[2023-02-20] MEDS: amLODIPine BESYLATE 5 MG TABLET 10 MG PO (11:42)
[2023-02-20] MEDS: lisinopriL 20 MG TABLET 40 MG PO (11:42)
[2023-02-20 11:59] LABS: Glucose Point of Care 146 mg/dl (65-105)
--- NOTE | 2023-02-20 14:06 | HOMEO2EVAL ---
Evaluation was performed at [facility] Home Oxygen Evaluation RC: Home Oxygen (O2) Evaluation Start: 02/20/23 09:14 Freq: ONCE Status: Active Protocol: RPE Activity Type Activity Date Activity User E-sign Co-sign Detail Recorded Client Recorded Date Recorded By Document 02/20/23 13:30 DJO [email or web address] 02/20/23 14:06 DJO Document 02/20/23 13:35 DJO [email or web address] 02/20/23 14:06 DJO Document 02/20/23 13:45 [email or web address] [email or web address] 02/20/23 14:06 DJO 02/20/23 02/20/23 02/20/23 13:30 13:35 13:45 Home O2 Evaluation [Oxygen] -Test Phase Resting Exercise Resting -Oxygen Delivery Room Air Room Air Room Air [Pulse Oximetry] -Pulse Oximetry (90-100 %) 92 90 92 [Pulse Rate] -Pulse Rate (60-100 beats/min) 78 92 80 [Evaluation] -Activity Tolerance Good [Charges] -Treatment Charges O2 Evaluation - Inpatient
--- NOTE | 2023-02-20 14:18 | PCRCNOTE ---
SETTING PT. UP WITH [facility] O2. [facility] WILL DELIVER EQUIPMENT AT HOME [phone]
--- NOTE | 2023-02-20 14:26 | WPDANESPN ---
Anes - Prog Note Post-Op Date/Time: 02/20/23 14:26 Cardiovascular status: normal Respiratory status: normal Airway patency: baseline Mental status: baseline Post-Op hydration status: normal Vital Signs: Last Vital Signs Temp 96.7 F L 02/20/23 12:10 Pulse 80 02/20/23 13:45 Resp 22 H 02/20/23 12:10 BP 128/71 02/20/23 12:50 Pulse Ox 92 02/20/23 13:45 O2 Del Method Room Air 02/20/23 13:45 O2 Flow Rate 2 02/20/23 04:00 Pain Score (VAS): 0 I/O: Intake & Output 02/19/23 02/20/23 02/20/23 23:59 07:59 15:59 Intake Total 540 850 600 Output Total 1 900 Balance 539 -50 600 Laboratory Tests 02/20/23 04:21 02/20/23 04:21 02/19/23 02/19/23 02/20/23 16:32 20:18 04:21 WBC 7.9 RBC 3.89 L Hgb 12.8 Hct 40.6 MCV 104.4 H MCH 32.9 MCHC 31.5 L RDW 13.3 Plt Count 221 MPV 9.5 Immature Gran % (Auto) 0.4 Neut % (Auto) 78.1 H Lymph % (Auto) 10.9 L [place] % (Auto) 8.1 Eos % (Auto) 1.9 Baso % (Auto) 0.6 Lymph # (Auto) 0.86 L [place] # (Auto) 0.6 Eos # (Auto) 0.2 Baso # (Auto) 0.1 Abs Immat Gran (auto) 0.03 Absolute Neuts (auto) 6.1 Absolute Nucleated RBC 0.0 Nucleated RBC % 0.0 Sodium Potassium Chloride Carbon Dioxide Anion Gap BUN Creatinine Estim Creat Clear Calc Estimated GFR Glucose POC Capillary Glucose 145 H 154 H Calcium Magnesium Total Bilirubin AST ALT Alkaline Phosphatase Total Protein Albumin 02/20/23 02/20/23 02/20/23 04:21 07:28 11:27 WBC RBC Hgb Hct MCV MCH MCHC RDW Plt Count MPV Immature Gran % (Auto) Neut % (Auto) Lymph % (Auto) [place] % (Auto) Eos % (Auto) Baso % (Auto) Lymph # (Auto) [place] # (Auto) Eos # (Auto) Baso # (Auto) Abs Immat Gran (auto) Absolute Neuts (auto) Absolute Nucleated RBC Nucleated RBC % Sodium 137 Potassium 4.6 Chloride 99 Carbon Dioxide 39 H Anion Gap -1 L BUN 15 Creatinine 0.50 L Estim Creat Clear Calc 136 Estimated GFR > 60 Glucose 116 H POC Capillary Glucose 166 H 146 H Calcium 8.2 L Magnesium 2.2 Total Bilirubin 0.4 AST 24 ALT 42 H Alkaline Phosphatase 69 Total Protein 7.0 Albumin 3.7 Post-procedural complaints: none Patient Feedback: Patient satisfied with anesthetic care.
== END 2023-02-20 16:03 | disposition home or self-care (01) | DRG 201 ==
PROVIDERS: Internal Medicine Cardiovascular Disease; Admitting Provider Internal Medicine; PCP Family Medicine; Visit Provider Nurse Practitioner
PROC: B24BZZ4 Ultrasonography of Heart with Aorta, Transesophageal (ICD-10-PCS; CPT 93312; principal; 2023-02-19 11:00)
PROC: 5A2204Z Restoration of Cardiac Rhythm, Single (ICD-10-PCS; 2023-02-19 11:00)
DX: I48.91 Unspecified atrial fibrillation (principal); E11.40 Type 2 diabetes mellitus with diabetic neuropathy, unspecified; I11.0 Hypertensive heart disease with heart failure; I50.32 Chronic diastolic (congestive) heart failure; E66.01 Morbid (severe) obesity due to excess calories; F17.210 Nicotine dependence, cigarettes, uncomplicated; J44.9 Chronic obstructive pulmonary disease, unspecified; Z68.39 Body mass index [BMI] 39.0-39.9, adult; G47.33 Obstructive sleep apnea (adult) (pediatric); E78.5 Hyperlipidemia, unspecified; Z79.899 Other long term (current) drug therapy
CPT/HCPCS: 36415; 80048; 80053; 82948; 83735; 83880; 84100; 85025; 85610; 85730; 92960; 93005; 93312; 93320; 93325; 94618; 94762; 96365; 96366; 96372; 96375; A9270; G0378; G0379; J1650; J1940; J2704; J7030; J7040

== ENCOUNTER 2023-05-15 08:28 | Outpatient (CLI) | payer OTHER, SELFPAY ==
[2023-05-15 08:58] LABS: Cholesterol 152 mg/dL (0-200); HDL Direct 62 mg/dL; Triglycerides 90 mg/dL (<150)
--- NOTE | 2023-05-15 09:07 | ECG_ITS ---
Measurements Intervals [place] Rate: 73 P: 33 TX: 145 QRS: 56 QRSD: 81 T: 63 QT: 375 QTc: 414 Interpretive Statements SINUS RHYTHM BASELINE WANDER- I, II, AVR, AVL, AVF NORMAL ECG COMPARED TO ECG 02/19/2023 11:34:17 NO SIGNIFICANT CHANGES Electronically Signed On 05-15-2023 9:49:41 CDT by Jonathon Villarreal D.O.
[2023-05-15 09:09] LABS: LDL Cholesterol Direct 61 mg/dL
== END 2023-05-15 08:29 | disposition home or self-care (01) ==
LOC: ANHLAB 08:30
PROVIDERS: PCP Family Medicine; Referring Provider Internal Medicine Cardiovascular Disease; Visit Provider Internal Medicine Pulmonary Disease
DX: G47.33 Obstructive sleep apnea (adult) (pediatric) (principal); E78.5 Hyperlipidemia, unspecified; I48.0 Paroxysmal atrial fibrillation
CPT/HCPCS: 36415; 80061; 82728; 93005

== ENCOUNTER 2023-10-10 13:43 | Outpatient (CLI) | payer OTHER, SELFPAY ==
[2023-10-10 14:13] LABS: Alanine Aminotransferase 22 U/L (6-35); Alkaline Phosphatase 75 U/L (38-126); Anion Gap 4 mmol/L (8-16); Aspartate Amino Transferase 20 U/L (14-36); Bilirubin,Total 0.6 mg/dL (0.2-1.3); Blood Urea Nitrogen 14 mg/dL (7-17); Calcium 9.3 mg/dL (8.4-10.2); Carbon Dioxide 31 mmol/L (22-30); Chloride 103 mmol/L (98-107); Estimated Glomerular Filt Rate > 60; Glucose 93 mg/dL (65-110); Potassium 4.1 mmol/L (3.4-5.0); Sodium 138 mmol/L (137-145)
[2023-10-10 14:43] LABS: Thyroid Stimulating Hormone 0.609 uIU/mL (0.465-4.680)
[2023-10-10 18:04] LABS: Hemoglobin A1C 5.2 % (<5.7)
== END 2023-10-10 13:44 | disposition home or self-care (01) ==
LOC: ANHLAB 13:44
PROVIDERS: PCP Family Medicine; Visit Provider Nurse Practitioner Family
DX: E11.40 Type 2 diabetes mellitus with diabetic neuropathy, unspecified (principal); G62.9 Polyneuropathy, unspecified; Z13.29 Encounter for screening for other suspected endocrine disorder
CPT/HCPCS: 36415; 80053; 83036; 84443

== ENCOUNTER 2024-01-17 13:21 | Outpatient (CLI) | payer OTHER, SELFPAY ==
--- NOTE | ~2024-01-17 | XR_ITS ---
EXAMINATION: XR chest 2V DATE: 01/17/2024 13:34 INDICATION: One month of cough and shortness of breath TECHNIQUE: frontal and lateral views of the chest were obtained. COMPARISON: Chest radiograph dated 11/08/2022 FINDINGS: The lungs remain clear with no focal airspace opacities, pulmonary edema, pleural effusion or pneumot horax. The cardiomediastinal silhouette is normal. Mild thoracic spondylosis. IMPRESSION: 1. No acute cardiopulmonary disease. Reviewed, dictated and finalized at location A. IBILITY COUNSELOR
== END 2024-01-17 13:22 | disposition home or self-care (01) ==
LOC: CHSIMG 13:23
PROVIDERS: PCP Family Medicine; Visit Provider Nurse Practitioner Family
DX: R06.2 Wheezing (principal); R05.9 Cough, unspecified
CPT/HCPCS: 71046

== ENCOUNTER 2024-01-29 13:26 | Outpatient (CLI) | payer OTHER, SELFPAY ==
[2024-01-29 13:56] LABS: Basophils Percent Auto 0.4 % (0.2-1.2); Eosinophils Absolute Auto 0.1 K/mm3 (0-0.3); Eosinophils Percent Auto 1.5 % (0-4.4); Hematocrit 39.1 % (37.0-47.0); Hemoglobin 12.4 g/dL (12.0-15.0); Immature Granulocyte Absolute 0.02 K/mm3 (0.00-0.031); Immature Granulocyte Percent A 0.2 % (0-0.5); Lymphocytes Absolute Auto 1.66 K/mm3 (0.9-3.2); Lymphocytes Percent Auto 17.7 % (18.3-44.2); Mean Corpuscular HGB Conc 31.7 g/dl (32-36); Mean Corpuscular Hemoglobin 32.5 pg (26-34); Mean Corpuscular Volume 102.6 fl (80-100); Mean Platelet Volume 10.1 fl (7.4-10.4); Monocytes Absolute Auto 0.8 K/mm3 (0.1-0.6); Monocytes Percent Auto 8.3 % (2.6-8.5); Neutrophils Absolute Auto 6.7 K/mm3 (1.3-6.7); Neutrophils Percent Auto 71.9 % (45.5-73.1); Platelet Count Result 225 k/mm3 (150-375); Red Blood Count 3.81 M/mm3 (4.2-5.4); Red Cell Distribution Width 15.4 % (11.5-14.5); White Blood Count 9.4 K/mm3 (4.5-10.0)
[2024-01-29 14:21] LABS: Alanine Aminotransferase 29 U/L (6-35); Albumin Level 4.1 g/dL (3.5-5.1); Alkaline Phosphatase 68 U/L (38-126); Anion Gap 3 mmol/L (8-16); Aspartate Amino Transferase 26 U/L (14-36); Bilirubin,Total 0.3 mg/dL (0.2-1.3); Blood Urea Nitrogen 19 mg/dL (7-17); Calcium 9.3 mg/dL (8.4-10.2); Carbon Dioxide 31 mmol/L (22-30); Chloride 104 mmol/L (98-107); Estimated Glomerular Filt Rate > 60; Glucose 96 mg/dL (65-110); Potassium 4.6 mmol/L (3.4-5.0); Sodium 138 mmol/L (137-145); Uric Acid 4.3 mg/dL (2.5-7.5)
[2024-01-29 14:29] LABS: NT Pro B Type Natriuretic Pept 130 pg/mL (19.9-100)
== END 2024-01-29 13:27 | disposition home or self-care (01) ==
LOC: ANHLAB 13:27
PROVIDERS: PCP Family Medicine; Visit Provider Physician Assistant
DX: I48.0 Paroxysmal atrial fibrillation (principal); G62.9 Polyneuropathy, unspecified; I50.9 Heart failure, unspecified
CPT/HCPCS: 36415; 80053; 82607; 83880; 84550; 85025; 85380

== ENCOUNTER 2024-05-18 20:42 | Emergency (ER) | payer OTHER, SELFPAY ==
--- NOTE | ~2024-05-18 | XR_ITS ---
EXAMINATION: XR lumbar spine 2-3V DATE: 05/18/2024 21:33 INDICATION: Low back pain. TECHNIQUE: 3 views of lumbar spine were obtained. COMPARISON: None. FINDINGS: There is 3 degrees levocurvature of lumbar spine. There is a chronic compression fracture o f L2 with 1/5 loss of height. There is mildly decreased disc height at L1-L2 and L3-L4. There are end plate osteophytes at most levels. There is multilevel facet joint osteoarthritis, severe in lower lum bar spine. IMPRESSION: 1. Mild lumbar spondylosis. Reviewed, dictated and finalized at location E. IMPRESSION: 1. Mild lumbar spondylosis.
[2024-05-18 20:47] VITALS: BP 147/78; PULSE 89; RESP 18; TEMP 36.6; O2SAT 94
[2024-05-18] MEDS: KETOROLAC (*BKC) 60 MG/2 ML VIAL IM (21:02)
[2024-05-18] MEDS: MORPHINE SULFATE (*CRX) 4 MG/ML INJ IM (21:39)
--- NOTE | 2024-05-18 21:57 | ED.BACK ---
HPI - Back Pain/Injury General Chief Complaint: Back Pain/Injury Stated Complaint: fall Time Seen by Provider: 05/18/24 20:45 Source: patient and family Mode of arrival: ambulatory Limitations: no limitations History of Present Illness HPI Narrative: this is a 48-year-old female with history of diabetes hypertension had a fall on her deck approximately 4 days ago and injured her tailbone and her lower back. Patient having pain that she rates at about an 8/10 with no radiation of her pain patient does have some neuropathy secondary to her diabetes. There is no saddle paresthesias no other injuries noted. MD elicited complaint: back pain, back injury and fall Onset (ago): day(s) Timing: constant Severity: severe Pain scale (0-10): 8 Similar Symptoms Previously: No Related Data Allergies Allergy/AdvReac Type Severity Reaction Status Date / Time cefadroxil Allergy Unknown Rash Verified 03/23/24 15:15 cefuroxime AdvReac Intermediate Rash Verified 03/23/24 15:15 Review of Systems Review of Systems: All systems reviewed & are unremarkable except as noted in HPI and below PMFSH Past Medical History Medical History Anxiety Atrial fibrillation with rapid ventricular response BMI 38.0-38.9,adult Bronchitis Congestive heart failure Conjunctivitis COPD (chronic obstructive pulmonary disease) Depression Dyslipidemia Essential hypertension Hematuria History of cardioversion Left wrist sprain Low back pain with right-sided sciatica Low TSH level Morbid (severe) obesity due to excess calories Neuropathy MARK (obstructive sleep apnea) Paroxysmal atrial tachycardia Syncope Tobacco abuse Type 2 diabetes mellitus with diabetic neuropathy, without long-term current use of insulin Vitamin D deficiency Surgical History Surgical History History of arthroscopic knee surgery LT X2 History of bilateral breast reduction surgery Family History Family History Mother Family history of chronic obstructive pulmonary disease Family history of congestive heart failure Heart disease Hypertension COPD (chronic obstructive pulmonary disease) Father No problems noted. Sibling No problems noted. Social History Social History Social History: Patient lives by herself and is not . She has two children and lives with a cat. She wishes to be a full code, and her daughter Jossy will be her surrogate. Smoking packs per day: 1 Smoking cigarettes per day: 20.0 Years smoked: 34 Smoking pack-years: 34.00 Smoking status: Former smoker Tobacco type: e-cigarettes/vaping Second hand tobacco smoke exposure: Yes Smoking end date: 11/05/22 Alcohol intake: current Alcohol use details: Beer with friend 2x a month Substance use: current Substance use type: marijuana Other substance usage details: joint about every other day Last use: 02/09/23 Lack of Transportation: YES Lack of Food: Sometimes True Current Housing: I Have Housing Concerned About Future Housing: No Difficulty Paying Gas/Electric Bills: No Difficulty Paying for Meds: YES Currently Unemployed: YES Education: High School Diploma/GED Difficulty w/ Childcare or Family Care: No Living arrangements: with family Occupation/Education: unemployed Gender identity (if verbalized by the patient): Female Sexual Orientation (if Verbalized by the Patient): Straight or Heterosexual Spiritual care concerns: No Agree to blood products: Yes Exam Const: General: healthy appearing and no acute distress Nutritional Appearance: well nourished Orientation/consciousness: patient oriented x3 Limitations: no limitations Chest: Chest palpation & inspection: normal inspection of the chest
[2024-05-18 22:11] VITALS: BP 136/86; PULSE 85; RESP 18; TEMP 36.6; O2SAT 96
== END 2024-05-18 22:11 | disposition home or self-care (01) ==
PROVIDERS: Emergency Provider Emergency Medicine; PCP Family Medicine
DX: S39.012A Strain of muscle, fascia and tendon of lower back, initial encounter (principal); E11.9 Type 2 diabetes mellitus without complications; I11.0 Hypertensive heart disease with heart failure; I50.9 Heart failure, unspecified; I48.91 Unspecified atrial fibrillation; W19.XXXA Unspecified fall, initial encounter; Z87.891 Personal history of nicotine dependence
CPT/HCPCS: 72100; 96372; 99284; J1885; J2270

== ENCOUNTER 2024-06-24 14:39 | Outpatient (CLI) | payer OTHER, SELFPAY ==
--- NOTE | ~2024-06-24 | MR_ITS ---
EXAMINATION: MR lumbar spine wo con DATE: 06/24/2024 15:31 INDICATION: Fall with back injury and low back pain TECHNIQUE: Magnetic resonance imaging (MRI) of the lumbar spine was performed without intravenous con trast. Sequences included sagittal T2-weighted FSE, sagittal T2-weighted FS FSE, sagittal T1-weighted FSE, and axial T2-weighted FSE. COMPARISON: Lumbar spine radiographs dated 05/18/2024 FINDINGS: Alignment is normal. Acute L2 superior endplate compression fracture with 20% anterior vertebral body height loss and prominent marrow edema throughout the vertebral body. Minimal chronic anterior wedgi ng with with 10% or less anterior vertebral body height loss and normal marrow signal at T11, T12, L3 and L4. Mild disc height loss at L3-L4. The conus medullaris terminates at L1. There is normal sign al in the caudal spinal cord. There is mild likely reactive soft tissue edema in the fat surrounding the L2 compression fracture. Paravertebral soft tissues are otherwise unremarkable. The following dis c levels are specifically discussed: T12-L1: Disc is bulging. There is mild right and moderate left facet joint osteoarthritis. There is n o neural foraminal stenosis. There is mild central canal stenosis. L1-L2: Disc is bulging. There is mild bilateral facet joint osteoarthritis. There is mild bilateral n eural foraminal stenosis. There is mild central canal stenosis. L2-L3: The disc does not extend beyond the endplate margin. There is mild to moderate bilateral facet joint osteoarthritis. There is mild left neural foraminal stenosis. There is no central canal stenos is. L3-L4: Eccentric to the right diffuse disc bulge. There is moderate left and mild to moderate right f acet joint osteoarthritis. There is mild left and moderate right neural foraminal stenosis. There is mild central canal stenosis. L4-L5: Disc is bulging. There is mild bilateral facet joint osteoarthritis. There is moderate bilater al neural foraminal stenosis. There is mild central canal stenosis. L5-S1: The disc does not extend beyond the endplate margin. There is mild bilateral facet joint osteo arthritis. There is mild left neural foraminal stenosis. There is no central canal stenosis. IMPRESSION: 1. Mild lumbar spondylosis with acute L2 superior endplate compression fracture with 20% anterior valerie tebral body height loss. Reviewed, dictated and finalized at location A. IMPRESSION: 1. Mild lumbar spondylosis with acute L2 superior endplate compression fracture with 20% anterior vertebral body height loss.
== END 2024-06-24 14:40 | disposition home or self-care (01) ==
LOC: ANHIMG 14:42
PROVIDERS: PCP Family Medicine; Visit Provider Nurse Practitioner Family
DX: S39.92XA Unspecified injury of lower back, initial encounter (principal); X58.XXXA Exposure to other specified factors, initial encounter; W19.XXXA Unspecified fall, initial encounter; M47.896 Other spondylosis, lumbar region
CPT/HCPCS: 72148

== ENCOUNTER 2024-08-18 13:28 | Outpatient (CLI) | payer OTHER, SELFPAY ==
--- NOTE | ~2024-08-18 | CT_ITS ---
CT Scan of the Chest without Contrast: Clinical Indication: Lung cancer screening, nicotine dependence Technique: Contiguous sections were acquired throughout the chest without intravenous contrast. Dose reduction technique was used on this scan by utilizing automated exposure control and iterative recon struction technique. The dose-length product (DLP) was 249.29 mGy-cm. Findings: There is no evidence of any significant mediastinal, hilar or axillary lymphadenopathy. The mediastin al soft tissues appear normal. There is no evidence of pleural or pericardial effusion. The lungs are clear. No pulmonary nodules or infiltrates are noted. Images through the upper abdomen reveal no abnormalities. Impression: Lung RADS 1: Negative. 12 month follow-up screening CT advised. Reviewed, dictated and finalized at location . Impression: Lung RADS 1: Negative. 12 month follow-up screening CT advised.
== END 2024-08-18 13:29 | disposition home or self-care (01) ==
PROVIDERS: PCP Family Medicine; Visit Provider Nurse Practitioner Family
DX: Z12.2 Encounter for screening for malignant neoplasm of respiratory organs (principal); Z87.891 Personal history of nicotine dependence
CPT/HCPCS: 71271

== ENCOUNTER 2024-12-30 14:34 | Outpatient (CLI) | payer OTHER, SELFPAY ==
--- OUTSIDE RECORDS SUMMARY | 2024-12-30 14:37 | XMS_ITS | Clinical Summary ---
Author Organization [facility] Address [address] [place] [address] Care Team Providers Care [employer] Name Role Phone Joseph Shelton MD Primary Care Provider Allergies Active Allergy Reactions Criticality Noted Date Comments Cefadroxil Rash Low 05/23/2022 Medications tiZANidine 2 MG tablet Take 2 mg by mouth every 6 (six) hours as needed. Active rosuvastatin (CRESTOR) 20 MG tablet Take 1 tablet (20 mg total) by mouth nightly at bedtime. Active nebivolol (BYSTOLIC) 10 MG tablet Take 1 tablet (10 mg total) by mouth daily. Active gabapentin (NEURONTIN) 300 MG capsuleIndicati ons:1200 am, 600 pm Indications: 1200 am, 600 pm Active amLODIPine (NORVASC) 10 MG tablet Take 1 tablet (10 mg total) by mouth daily. Active buPROPion XL (WELLBUTRIN XL) 300 MG 24 hr tablet Take 1 tablet (300 mg total) by mouth daily. Active lisinopril (PRINIVIL) 40 MG tablet Take 1 tablet (40 mg total) by mouth daily. Active HYDROcodone-sunshine taminophen 5-325 MG tabletIndicatio ns:Acute Pain < 3 Day Supply Take 1 tablet by mouth every 6 (six) hours as needed. Indications: Acute Pain < 3 Day Supply 12 tablet 05/23/2022 Active ALPRAZolam (XANAX) 0.25 MG tablet Take 1 tablet (0.25 mg total) by mouth 2 (two) times daily as needed for Sleep. Active metFORMIN (GLUCOPHAGE) 500 MG tablet Take 1 tablet (500 mg total) by mouth 2 (two) times daily with meals. Active albuterol sulfate HFA 108 (90 Base) MCG/ACT inhaler Inhale 2 puffs into the lungs every 6 (six) hours as needed for Wheezing. Active Social History Tobacco Use Types Packs/Day Years Used Date Smoking Tobacco: Every Day Cigarettes Smokeless Tobacco: Never Tobacco Cessation:Ready to Q uit: Not Asked; Counseling Given: Not Answered Alcohol Use Standard Drinks/Week Comments Yes 0 (1 standard drink = 0.6 oz pur e alcohol) occasional Comments No Sex and Gender Information Value Date Recorded Sex Assigned at Not on file Legal Sex Female 8:52 PM CDT Gender Identity Not on file Sexual Orientation Not on file Last Filed Vital Signs Vital Sign Reading Time Taken Comments Blood Pressure 110/82 02/16/2023 4:30 AM CDT Pulse 118 02/16/2023 4:30 AM CDT Temperature 36.8 C (98.2 F) 02/15/2023 2:35 PM CDT Respiratory Rate 24 02/16/2023 4:30 AM CDT Oxygen Saturation 93% 02/16/2023 4:30 AM CDT Inhaled Oxygen Concentration - - Weight 105.2 kg (232 lb) 02/15/2023 2:32 PM CDT Height 165.1 cm (5' 5 ) 02/15/2023 2:32 PM CDT Body Mass Index 38.61 02/15/2023 2:32 PM CDT Plan of Treatment Health Maintenance Due Date Last Done Comments Cervical Cancer Screening Pa p Smear (Age 30 to 64) Every 3 Years 1974 Colorectal Cancer Screening Colonoscopy (10 Years) 1974 Annual Physical 1977 Pneumococcal Vaccine: Pediatrics (0 to 5 Years) and At-Risk Patients (6 to 64 Years) (1 of 2 - PCV) 1980 Hepatitis C 1992 DTaP, Tdap and Td Vaccines ( 1 - Tdap) 1993 Hepatitis B Vaccines (1 of 3 - 19+ 3-dose series) 1993 Cervical Cancer Screening Pa p with HPV Testing (Age 30 to 64) Every 5 Years 2004 Cervical Cancer Screening wi th HPV 2004 Mammogram Screening 2014 Zoster Vaccines (1 of 2) 2024 COVID-19 Vaccine (2023-2 5 season) 2024 12/07/2021, 11/16/2021 Influenza Adult (#1) 2024 Meningococcal B Vaccine Aged Out No l onger eligible based on patient's age to complete this topic Meningococcal Vaccine Aged Out No flaca myra eligible based on patient's age to complete this topic RSV Immunizations Under 20 Months Aged Out No longer eligible b ased on patient's age to complete this topic Insurance [facility] MEDICAID Care Teams [employer] Relationship Specialty Start Date End Date Joseph Shelton MD [address] [place] [id number] PCP - General FAMILY PRACTICE 05/23/22
--- OUTSIDE RECORDS SUMMARY | 2024-12-30 14:37 | XMS_ITS | Referral Summary ---
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
--- OUTSIDE RECORDS SUMMARY | 2024-12-30 14:37 | XMS_ITS | Clinical Summary ---
Author Organization [id number] Address [address] [place] [address] Care Team Providers Care Cognos Bi Administrator Name Role Phone Joseph Shelton MD Primary Care Provider [phone] Source Comments [facility],non-owned Affiliates and Associated Physician Practices is amultiple site organization consisting of ambulatory clinics and hospital sitesin [place], [place], [place] and [place]. This disclosure is being madepursuant to the Care Everywhere program and may not contain all information available regarding this patient. Last updated 18.[id number] Allergies Active Allergy Reactions Criticality Noted Date Comments Cefadroxil GI Discomfort Low 12/07/2024 Medications * Be aware that medications may not be up to date on this document. Alwaysverify current medications with the patient. Medication Sig Dispensed Refills Start Date End Date Status sotalol (Betapace) 80 MG tablet Take 1 (one) tablet by mouth 2 times daily Active PARoxetine (Paxil) 30 MG tablet Take 1 (one) tablet by mouth at bedtime Active metFORMIN (Glucophage) 500 MG tablet Take 1 (one) tablet by mouth 2 times daily with morning and evening meal Active rosuvastatin (Crestor) 20 MG tablet Take 1 (one) tablet by mouth once daily Active busPIRone (Buspar) 7.5 MG tablet Take 1 (one) tablet by mouth 2 times daily Active acetaminophen (Tylenol) 325 MG tablet Take 2 (two) tablets by mouth every 4 hours as needed for Fever or Pain Maximum allowable Acetaminophen amount = 4 Grams (4000 mg) / 24 hours. Active buPROPion SR 12hr (Wellbutrin-SR) 150 MG tablet Take 1 (one) tablet by mouth 2 times daily Active apixaban (Eliquis) 5 MG tablet Take 1 (one) tablet by mouth 2 times daily Active ALPRAZolam (Xanax) 0.5 MG tablet Take 1 (one) tablet by mouth 2 times daily Active pregabalin (Lyrica) 150 MG capsule Take 1 (one) capsule by mouth 2 times daily Active albuterol HFA (Proventil; Ventolin; Proair) 108 (90 Base) MCG/ACT inhaler Inhale 2 (two) puffs by mouth every 6 hours as needed for Wheezing or Shortness of Breath Active budeson-glycopyr rol-formoterol (Breztri Aerosphere) 160-9-4.8 MCG/ACT inhaler Inhale 2 (two) puffs by mouth 2 times daily Active HYDROcodone-acet aminophen ([place]) 5-325 MG tabletIndication s:Other closed fracture of second lumbar vertebra, initial encounter ([facility]) Take 1 (one) tablet by mouth every 6 hours as needed 12 tablet 12/17/2024 Active metoprolol tartrate IR (Lopressor) 25 MG tablet Take 0.5 (one-half) tablet by mouth 2 times daily 30 tablet 12/17/2024 Active cefTRIAXone 2 g 2,000 mg in 0.9% NaCl IV 0.9 % 50 mL 2,000 (two thousand) mg by Intravenous route every 24 hours Continue ceftriaxone 2 gm IV daily until 12/28 Weekly CBC with diff and CMP. Please fax results to [phone]. Follow up with Dr. Gilmore in 1-2 weeks/PRN. Please call [phone] for scheduling. Discontinue PICC after last dose of abx. 12/17/2024 Active lidocaine (Lidoderm) 5 % patch Apply 1 (one) patch to skin every 24 hours Apply patch to most painful area and remove after 12 hours. May reapply a new patch 12 hours later. 14 patch 12/18/2024 Active senna-docusate (Senokot-S) 8.6-50 MG tablet Take 1 (one) tablet by mouth 2 times daily as needed for Constipation 20 tablet 12/17/2024 Active cyclobenzaprine (Flexeril) 10 MG tablet Take 1 (one) tablet by mouth 3 times daily as needed for Muscle Spasms 15 tablet 12/17/2024 Active lisinopril (Prinivil; Zestril) 40 MG tablet Take 1 (one) tablet by mouth once daily 5 Discontinue d(Clinical Decision) amLODIPine (Norvasc) 10 MG tablet Take 1 (one) tablet by mouth once daily 5 Discontinue d(Clinical Decision) Resolved Problems Problem Noted Date Diagnosed Date Resolved Date Atrial fibrillation with rap id ventricular response 12/06/2024 12/17/2024 Encounters Date Type Department Care Team Description 12/10/2024 8:30 AM GERIATRIC PHYSICAL THERAPIST - 12/10/2024 10:00 AM GERIATRIC PHYSICAL THERAPIST Surgery [facility] - Cardiac Roll Scale Man [address] [place] [id number] Maira Plaza MD Intra-procedure EDIS 12/10/2024 8:20 AM GERIATRIC PHYSICAL THERAPIST Anesthesia Event [facility] - Cardiac Roll Scale Man [address] [place] [id number] Felipe Cordero MD Findley, Hanna J 12/07/2024 7:51 AM GERIATRIC PHYSICAL THERAPIST - 12/17/2024 4:40 PM GERIATRIC PHYSICAL THERAPIST Hospital Encounter [facility] [address] [place] [address] [phone] Ceasar Markham MD Jones, Olujoke, MD Kaswan, Nitika, MD Yu, Yang, MD Chilakala, Aruna, MD Hospitalist Discharge Disposition: Home Health Care Sv from Last 3 Months Social History Tobacco Use Types Packs/Day Years Used Date Smoking Tobacco: Never Tobacco Cessation:Counseling Given: Not Answered Sex and Gender Information Value Date Recorded Sex Assigned at Not on file Gender Identity Not on file Sexual Orientation Not on file Last Filed Vital Signs Vital Sign Reading Time Taken Comments Blood Pressure 124/74 12/17/2024 11:56 AM GERIATRIC PHYSICAL THERAPIST Pulse 60 12/17/2024 11:56 AM GERIATRIC PHYSICAL THERAPIST Temperature 36.6 C (97.8 F) 12/17/2024 11:56 AM GERIATRIC PHYSICAL THERAPIST Respiratory Rate 17 12/17/2024 11:56 AM GERIATRIC PHYSICAL THERAPIST Oxygen Saturation 94% 12/17/2024 11:56 AM GERIATRIC PHYSICAL THERAPIST Inhaled Oxygen Concentration - - Weight 101.6 kg (224 lb) 12/07/2024 2:40 PM GERIATRIC PHYSICAL THERAPIST Height 162.6 cm (5' 4 ) 12/07/2024 2:40 PM GERIATRIC PHYSICAL THERAPIST Body Mass Index 38.45 12/07/2024 2:40 PM GERIATRIC PHYSICAL THERAPIST Plan of Treatment Health Maintenance Due Date Last Done Comments COLOGUARD (AGES 45-75) - COL ON CA SCREENING 1975 COLON MONITORING 1974 COLONOSCOPY - COLON CA SCREENING 1974 CT COLONOGRAPHY - COLON CA SCREENING 1975 Colorectal Cancer Screening 1975 FIT - COLON CA SCREENING 1974 FLEX SIG - COLON CA SCREENING 1975 MAMMOGRAM 1974 PAP SMEAR 1974 HIV SCREENING 1989 HEPATITIS C SCREENING 05/28/1992 DTAP/TDAP/TD VACCINES (1 - Tdap) 1993 HEPATITIS B VACCINE (1 of 3 - 19+ 3-dose series) 1993 PNEUMOCOCCAL VACCINE 50+ (1 of 2 - PCV) 1993 ZOSTER VACCINE (1 of 2) 2024 COVID-19 VACCINE (1 - 2023-2 5 season) 2024 INFLUENZA VACCINE (#1) 2024 DEPRESSION SCREENING 11/11/2024 HIB VACCINE Aged Out No longer eligi ble based on patient's age to complete this topic HPV VACCINE Aged Out No longer eligi ble based on patient's age to complete this topic MENINGOCOCCAL (Group B) VACCINE Aged Out No longer eligible based on patient's age to complete this topic MENINGOCOCCAL VACCINE Aged Out No flaca myra eligible based on patient's age to complete this topic Procedures Procedure Name Priority Date/Time Associated Diagnosis Comments CARDIAC RHYTHM STRIP ORDER 12/18/2024 10:49 PM GERIATRIC PHYSICAL THERAPIST GLUCOSE - POINT OF CARE Routine 12/17/2024 11:55 AM GERIATRIC PHYSICAL THERAPIST GLUCOSE - POINT OF CARE Routine 12/17/2024 6:43 AM GERIATRIC PHYSICAL THERAPIST COMPREHENSIVE METABOLIC PANEL AM Draw 12/17/2024 5:19 AM GERIATRIC PHYSICAL THERAPIST CBC W AUTO DIFFERENTIAL AM Draw 12/17/2024 5:19 AM GERIATRIC PHYSICAL THERAPIST GLUCOSE - POINT OF CARE Routine 12/16/2024 7:56 PM GERIATRIC PHYSICAL THERAPIST GLUCOSE - POINT OF CARE Routine 12/16/2024 5:01 PM GERIATRIC PHYSICAL THERAPIST ECHO LIMITED OR FOLLOWUP Routine 12/16/2024 11:52 AM GERIATRIC PHYSICAL THERAPIST Atrial fibrillation with rapid ventricular response (HCC) GLUCOSE - POINT OF CARE Routine 12/16/2024 11:47 AM GERIATRIC PHYSICAL THERAPIST GLUCOSE - POINT OF CARE Routine 12/16/2024 6:35 AM GERIATRIC PHYSICAL THERAPIST BASIC METABOLIC PANEL (CALCIUM TOTAL) AM Draw 12/16/2024 4:53 AM GERIATRIC PHYSICAL THERAPIST GLUCOSE - POINT OF CARE Routine 12/15/2024 9:42 PM GERIATRIC PHYSICAL THERAPIST GLUCOSE - POINT OF CARE Routine 12/15/2024 4:21 PM GERIATRIC PHYSICAL THERAPIST GLUCOSE - POINT OF CARE Routine 12/15/2024 11:01 AM GERIATRIC PHYSICAL THERAPIST GLUCOSE - POINT OF CARE Routine 12/15/2024 6:37 AM GERIATRIC PHYSICAL THERAPIST BASIC METABOLIC PANEL (CALCIUM TOTAL) AM Draw 12/15/2024 4:14 AM GERIATRIC PHYSICAL THERAPIST CBC W AUTO DIFFERENTIAL AM Draw 12/15/2024 4:14 AM GERIATRIC PHYSICAL THERAPIST HOME CPAP/BIPAP FOR HOSP USE: NOCTURNAL 02 Routine 12/15/2024 12:00 AM GERIATRIC PHYSICAL THERAPIST CARDIAC EKG ORDER 12/14/2024 10:07 PM GERIATRIC PHYSICAL THERAPIST GLUCOSE - POINT OF CARE Routine 12/14/2024 4:23 PM GERIATRIC PHYSICAL THERAPIST GLUCOSE - POINT OF CARE Routine 12/14/2024 10:58 AM GERIATRIC PHYSICAL THERAPIST CULTURE BLOOD Timed 12/14/2024 10:53 AM GERIATRIC PHYSICAL THERAPIST CULTURE BLOOD Timed 12/14/2024 10:48 AM GERIATRIC PHYSICAL THERAPIST GLUCOSE - POINT OF CARE Routine 12/14/2024 6:20 AM GERIATRIC PHYSICAL THERAPIST BASIC METABOLIC PANEL (CALCIUM TOTAL) AM Draw 12/14/2024 4:49 AM GERIATRIC PHYSICAL THERAPIST CBC W AUTO DIFFERENTIAL AM Draw 12/14/2024 4:49 AM GERIATRIC PHYSICAL THERAPIST HOME CPAP/BIPAP FOR HOSP USE: NOCTURNAL 02 Routine 12/14/2024 12:00 AM GERIATRIC PHYSICAL THERAPIST GLUCOSE - POINT OF CARE Routine 12/13/2024 8:46 PM GERIATRIC PHYSICAL THERAPIST GLUCOSE - POINT OF CARE Routine 12/13/2024 4:44 PM GERIATRIC PHYSICAL THERAPIST GLUCOSE - POINT OF CARE Routine 12/13/2024 11:41 AM GERIATRIC PHYSICAL THERAPIST BASIC METABOLIC PANEL (CALCIUM TOTAL) LORI 12/13/2024 10:11 AM GERIATRIC PHYSICAL THERAPIST CBC W AUTO DIFFERENTIAL LORI 12/13/2024 10:11 AM GERIATRIC PHYSICAL THERAPIST HOME CPAP/BIPAP FOR HOSP USE: NOCTURNAL 02 Routine 12/13/2024 12:00 AM GERIATRIC PHYSICAL THERAPIST CULTURE BLOOD Timed 12/12/2024 5:26 PM GERIATRIC PHYSICAL THERAPIST BCID PANEL Routine 12/12/2024 5:18 PM GERIATRIC PHYSICAL THERAPIST CULTURE BLOOD Timed 12/12/2024 5:18 PM GERIATRIC PHYSICAL THERAPIST GLUCOSE - POINT OF CARE Routine 12/12/2024 11:44 AM GERIATRIC PHYSICAL THERAPIST HOME CPAP/BIPAP FOR HOSP USE: NOCTURNAL 02 Routine 12/12/2024 7:43 AM GERIATRIC PHYSICAL THERAPIST HOME CPAP/BIPAP FOR HOSP USE: NOCTURNAL 02 Routine 12/12/2024 7:43 AM GERIATRIC PHYSICAL THERAPIST VAS RIGHT VENOUS DUPLEX UE PENDING DISCHARGE 12/11/2024 1:30 PM GERIATRIC PHYSICAL THERAPIST Atrial fibrillation with rapid ventricular response (HCC) Other closed fracture of second lumbar vertebra, initial encounter (HCC) GLUCOSE - POINT OF CARE Routine 12/11/2024 12:40 PM GERIATRIC PHYSICAL THERAPIST GLUCOSE - POINT OF CARE Routine 12/11/2024 12:31 PM GERIATRIC PHYSICAL THERAPIST GLUCOSE - POINT OF CARE Routine 12/11/2024 7:38 AM GERIATRIC PHYSICAL THERAPIST GLUCOSE - POINT OF CARE Routine 12/10/2024 8:32 PM GERIATRIC PHYSICAL THERAPIST GLUCOSE - POINT OF CARE Routine 12/10/2024 6:03 PM GERIATRIC PHYSICAL THERAPIST GLUCOSE - POINT OF CARE Routine 12/10/2024 12:20 PM GERIATRIC PHYSICAL THERAPIST EKG 12-LEAD Routine 12/10/2024 12:13 PM GERIATRIC PHYSICAL THERAPIST Atrial fibrillation with rapid ventricular response (HCC) ECHO EDIS COMPLETE Routine 12/10/2024 10:25 AM GERIATRIC PHYSICAL THERAPIST Atrial fibrillation with rapid ventricular response (HCC) EKG 12-LEAD Routine 12/10/2024 8:44 AM GERIATRIC PHYSICAL THERAPIST Atrial fibrillation with rapid ventricular response (HCC) CCL CARDIOVERSION Routine 12/10/2024 8:4 1 AM GERIATRIC PHYSICAL THERAPIST Atrial fibrillation with rapid ventricular response (HCC) CCL INTRA PROCEDURE EDSI Routine 12/10/2024 8:41 AM GERIATRIC PHYSICAL THERAPIST Atrial fibrillation with rapid ventricular response (HCC) GLUCOSE - POINT OF CARE Routine 12/10/2024 7:47 AM GERIATRIC PHYSICAL THERAPIST EKG 12-LEAD Routine 12/09/2024 10:47 PM GERIATRIC PHYSICAL THERAPIST Atrial fibrillation with rapid ventricular response (HCC) GLUCOSE - POINT OF CARE Routine 12/09/2024 9:44 PM GERIATRIC PHYSICAL THERAPIST EKG 12-LEAD Routine 12/09/2024 1:31 PM GERIATRIC PHYSICAL THERAPIST Atrial fibrillation with rapid ventricular response (HCC) GLUCOSE - POINT OF CARE Routine 12/09/2024 11:19 AM GERIATRIC PHYSICAL THERAPIST GLUCOSE - POINT OF CARE Routine 12/09/2024 7:57 AM GERIATRIC PHYSICAL THERAPIST GLUCOSE - POINT OF CARE Routine 12/09/2024 6:26 AM GERIATRIC PHYSICAL THERAPIST ECHO COMPLETE Routine 12/09/2024 12:58 AM GERIATRIC PHYSICAL THERAPIST Atrial fibrillation with rapid ventricular response (HCC) GLUCOSE - POINT OF CARE Routine 12/08/2024 8:27 PM GERIATRIC PHYSICAL THERAPIST XR LUMBAR SPINE 2 OR 3VW Routine 12/08/2024 5:24 PM GERIATRIC PHYSICAL THERAPIST Other closed fracture of second lumbar vertebra, initial encounter (HCC) GLUCOSE - POINT OF CARE Routine 12/08/2024 5:03 PM GERIATRIC PHYSICAL THERAPIST GLUCOSE - POINT OF CARE Routine 12/08/2024 1:06 PM GERIATRIC PHYSICAL THERAPIST GLUCOSE - POINT OF CARE Routine 12/08/2024 12:12 PM GERIATRIC PHYSICAL THERAPIST GLUCOSE - POINT OF CARE Routine 12/08/2024 11:52 AM GERIATRIC PHYSICAL THERAPIST GLUCOSE - POINT OF CARE Routine 12/08/2024 11:45 AM GERIATRIC PHYSICAL THERAPIST EKG 12-LEAD Routine 12/08/2024 11:32 AM GERIATRIC PHYSICAL THERAPIST Atrial fibrillation with rapid ventricular response (HCC) GLUCOSE - POINT OF CARE Routine 12/08/2024 7:47 AM GERIATRIC PHYSICAL THERAPIST MAGNESIUM BLOOD Routine 12/08/2024 3:49 AM GERIATRIC PHYSICAL THERAPIST BASIC METABOLIC PANEL (CALCIUM TOTAL) AM Draw 12/08/2024 3:49 AM GERIATRIC PHYSICAL THERAPIST HEMOGLOBIN A1C Routine 12/08/2024 3:49 AM GERIATRIC PHYSICAL THERAPIST GLUCOSE - POINT OF CARE Routine 12/07/2024 8:17 PM GERIATRIC PHYSICAL THERAPIST GLUCOSE - POINT OF CARE Routine 12/07/2024 5:25 PM GERIATRIC PHYSICAL THERAPIST TSH Routine 12/07/2024 11:13 AM GERIATRIC PHYSICAL THERAPIST MAGNESIUM BLOOD STAT 12/07/2024 11:13 AM GERIATRIC PHYSICAL THERAPIST TROPONIN-I HIGH SENSITIVE STAT 12/07/2024 11:13 AM GERIATRIC PHYSICAL THERAPIST COMPREHENSIVE METABOLIC PANEL STAT 12/07/2024 11:13 AM GERIATRIC PHYSICAL THERAPIST CBC W AUTO DIFFERENTIAL STAT 12/07/2024 11:13 AM GERIATRIC PHYSICAL THERAPIST B-TYPE NATRIURETIC PEPTIDE STAT 12/07/2024 11:13 AM GERIATRIC PHYSICAL THERAPIST from Last 3 Months Results * CARDIAC RHYTHM STRIP ORDER (12/18/2024 10:49 PM GERIATRIC PHYSICAL THERAPIST) Narrative 12/18/2024 10:49 PM GERIATRIC PHYSICAL THERAPIST Ordered by an unspecified provider. Scanned Document CARDIAC SERVICES ORD ERABLES * GLUCOSE - POINT OF CARE (12/17/2024 11:55 AM GERIATRIC PHYSICAL THERAPIST) Only the most recent of37 resultswithin the time period is included. Pathologist [facility] Glucose WB/POC 99 70 - 99 mg/dL 12/17/2024 12:36 PM GERIATRIC PHYSICAL THERAPIST [facility] Specimen Type Cap Fingerstick 2024 12:36 PM GERIATRIC PHYSICAL THERAPIST [facility] Blood BLOOD SPECIMEN / Unknown 12/17/2024 11:55 AM GERIATRIC PHYSICAL THERAPIST 12/17/2024 12:36 PM GERIATRIC PHYSICAL THERAPIST Teri Arora MD LAB - POINT OF CARE ORDERABLES [facility] [address] [place] [address] * (ABNORMAL) CBC W AUTO DIFFERENTIAL (12/17/2024 5:19 AM GERIATRIC PHYSICAL THERAPIST) Only the most recent of5 resultswithin the time period is included. Pathologist [facility] WBC 4.7 4.0 - 10.7 x10E9/L 12/17/2024 5:57 AM [facility] RBC Count 3.47(L) 3.90 - 5.20 x10E12/L 12/17/2024 5:57 AM [facility] Hemoglobin 10.9(L) 11.9 - 15.8 g/dL 12/17/2024 5:57 AM [facility] Hematocrit 34.0(L) 34.8 - 46.1 % 12/17/2024 5:57 AM [facility] MCV 98.0 80.0 - 98.0 fL 12/17/2024 5:57 AM [facility] MCH 31.4 26.7 - 33.6 pg 12/17/2024 5:57 AM [facility] MCHC 32.1 31.7 - 36.3 g/dL 12/17/2024 5:57 AM [facility] RDW-CV 14.2 11.3 - 14.8 % 12/17/2024 5:57 AM [facility] Platelet Count 179 150 - 420 x10E9/L 12/17/2024 5:57 AM [facility] MPV 10.7 7.8 - 11.4 fL 12/17/2024 5:57 AM [facility] Neutrophil % 56.8 41.0 - 74.0 % 12/17/2024 5:57 AM [facility] Lymphocyte % 29.3 17.0 - 47.0 % 12/17/2024 5:57 AM [facility] Monocyte % 10.7 3.0 - 11.0 % 12/17/2024 5:57 AM [facility] Eosinophil % 2.4 0.0 - 7.0 % 12/17/2024 5:57 AM [facility] Basophil % 0.6 0.0 - 1.6 % 12/17/2024 5:57 AM [facility] Immature Granulocytes % 0.2 0.0 - 1.0 % 12/17/2024 5:57 AM [facility] Neutrophil Absolute 2.66 1.60 - 7.50 x10E9/L 12/17/2024 5:57 AM [facility] Lymphocyte Absolute 1.37 1.00 - 4.40 x10E9/L 12/17/2024 5:57 AM [facility] Monocyte Absolute 0.50 0.15 - 1.00 x10E9/L 12/17/2024 5:57 AM [facility] Eosinophil Absolute 0.11 0.00 - 0.60 x10E9/L 12/17/2024 5:57 AM [facility] Basophil Absolute 0.03 0.00 - 0.13 x10E9/L 12/17/2024 5:57 AM [facility] Blood BLOOD SPECIMEN / Unknown Line Draw / Unknown 12/17/2024 5:19 AM GERIATRIC PHYSICAL THERAPIST 12/17/2024 5:26 AM [facility] Nasir Jaramillo PIG MACHINE OPERATOR [employer] PROFESSIONAL LAB - HEMATO LOGY ORDERABLES [facility] [address] [place] [address] * (ABNORMAL) COMPREHENSIVE METABOLIC PANEL (12/17/2024 5:19 AM [facility]) Only the most recent of2 resultswithin the time period is included. Glucose 93 70 - 99 mg/dL 12/17/2024 5:49 AM [facility] Sodium 142 136 - 145 mmol/L 12/17/2024 5:49 AM [facility] Potassium 4.4 3.5 - 5.1 mmol/L 12/17/2024 5:49 AM [facility] Chloride 107 98 - 107 mmol/L 12/17/2024 5:49 AM [facility] CO2 28 22 - 29 mmol/L 12/17/2024 5:49 AM [facility] Calcium 8.6 8.4 - 10.4 mg/dL 12/17/2024 5:49 AM [facility] Anion Gap 7 6 - 16 mmol/L 12/17/2024 5:49 AM [facility] BUN 17 7 - 26 mg/dL 12/17/2024 5:49 AM [facility] Creatinine 0.58 0.57 - 1.11 mg/dL 12/17/2024 5:49 AM [facility] Alkaline Phosphatase 79 40 - 150 U/L 12/17/2024 5:49 AM [facility] ALT 47 0 - 55 U/L 12/17/2024 5:49 AM GERIATRIC PHYSICAL THERAPIST [facility] AST 25 5 - 34 U/L 12/17/2024 5:49 AM GERIATRIC PHYSICAL THERAPIST [facility] Protein Total 5.4(L) 6.4 - 8.3 gm/dL 12/17/2024 5:49 AM GERIATRIC PHYSICAL THERAPIST [facility] Albumin 2.6(L) 3.4 - 5.0 gm/dL 12/17/2024 5:49 AM GERIATRIC PHYSICAL THERAPIST [facility] Bilirubin Total 0.2 0.2 - 1.2 mg/dL 12/17/2024 5:49 AM GERIATRIC PHYSICAL THERAPIST [facility] eGFR by CKD-EPI >90 >=90 mL/min/1.7 3 m2 12/17/2024 5:49 AM GERIATRIC PHYSICAL THERAPIST [facility] Blood BLOOD SPECIMEN / Unknown Line Draw / Unknown 12/17/2024 5:19 AM GERIATRIC PHYSICAL THERAPIST 12/17/2024 5:26 AM GERIATRIC PHYSICAL THERAPIST Nasir Jaramillo PIG MACHINE OPERATOR [employer] PROFESSIONAL LAB - CHEMIS TRY ORDERABLES [facility] [id number] [place] [address] * ECHO LIMITED OR FOLLOWUP (12/16/2024 11:52 AM GERIATRIC PHYSICAL THERAPIST) Only the most recent of2 resultswithin the time period is included. Myocardial strain charge 2 unitless [facility] [employer] PACS Anatomical Region Laterality Modality Ultrasound 12/16/2024 9:47 AM GERIATRIC PHYSICAL THERAPIST Narrative 12/16/2024 6:13 PM GERIATRIC PHYSICAL THERAPIST Summary * The left ventricle is normal in size. * Left ventricular systolic function is normal with an estimated ejection fraction of 60-65% by visual estimate. * Left ventricular segmental wall motion is normal. * The left ventricular mass is mildly increased with concentric hypertrophy. * The left ventricular diastolic function is indeterminate. * The right ventricle is normal in size. * Right ventricular systolic function is normal. * The left atrium is mildly dilated. * The right atrium is normal in size. * The aortic valve is trileaflet and mildly calcified. * The mitral valve is normal and mildly thickened. Patient Info Name: Rosemarie Gillespie Age: 49 years : 1975 Gender: Female Ht: 64 in Wt: 224 lb BSA: 2.19 m2 BP: 104 / 72 mmHg Exam Date: 12/16/2024 9:47 AM Patient Status: I/P Study Site: [facility] Primary Location: [facility] EStudy Info Technical Quality: Adequate Exam Type: ECHO LIMITED OR FOLLOWUP Indications I48.91 - Atrial fibrillation with rapid ventricular response (HCC) - Bacteremia Procedure(s) * A limited 2D and M-Mode transthoracic echocardiogram was performed. Reason for Technically Difficult Study: body habitus, patient supine Staff Referring Physician: Michelle Purdy Ordering Provider: Michelle Purdy Attending Physician: Michelle Purdy Admission Nurse: Katy Marin [facility] Left Ventricle The left ventricle is normal in size. Left ventricular systolic function is normal with an estimated ejection fraction of 60-65% by visual estimate. Left ventricular segmental wall motion is normal. The left ventricular mass is mildly increased with concentric hypertrophy. The left ventricular diastolic function is indeterminate. Right Ventricle The right ventricle is normal in size. Right ventricular systolic function is normal. Left Atrium The left atrium is mildly dilated. Right Atrium The right atrium is normal in size. Atrial Septum Intact interatrial septum visualized by 2D and color Doppler imaging. Aortic Valve The aortic valve is trileaflet and mildly calcified. Pulmonic Valve The pulmonic valve is normal. Mitral Valve The mitral valve is normal and mildly thickened. Tricuspid Valve The tricuspid valve is normal. Inferior Vena Cava The inferior vena cava is normal in size (< 2.1 cm). There is > 50% collapse of the IVC upon inspiration with an estimated right atrial pressure of 3 mmHg. Pericardium/Pleural There is no pericardial effusion. Aorta The aortic root at the sinus of Valsalva is not well visualized. The ascending aorta is not well visualized. Measurements Tricuspid Valve Name Value Normal Estimated PAP/RSVP RA Pressure 3 mmHg <=5 PA Systolic Pressure 30 mmHg <35 Aorta Name Value Normal Ascending Aorta Ao Root Diameter (MM) 3.2 cm Ao Root Diam Index (MM) 1.5 cm/m2 Aortic Valve Name Value Normal AV 2D/MM AV Cusp Sep (MM) 2.0 cm Ventricles Name Value Normal LV Dimensions 2D/MM IVS Diastole Thickness (MM) 1.4 cm 0.6-0.9 LVID Diastole (MM) 5.8 cm 3.8-5.2 LVPW Diastolic Thickness (MM) 1.0 cm 0.6-0.9 IVS Systolic Thickness (MM) 1.8 cm LVID Systole (MM) 4.4 cm 2.2-3.5 LVPW Systolic Thickness (MM) 1.2 cm LV Mass (MM Cubed) 309 g 67-162 LV Mass Index (MM Cubed) 141 g/m2 43-95 Relative Wall Thickness (MM) 0.36 LV Fractional Shortening/Ejection Fraction 2D/MM LV Fractional Shortening (MM) 23 % 27-45 LV EF (MM Teicholz) 46 % 54-74 Atria Name Value Normal LA Dimensions LA Dimension (MM) 3.9 cm 2.7-3.8 Report Signatures Finalized by Tin Block on 12/16/2024 06:13 PM Procedure Note Tin Block MD - 12/17/2024 Summary * The left ventricle is normal in size. * Left ventricular systolic function is normal with an estimatedejection fraction of 60-65% by visual estimate. * Left ventricular segmental wall motion is normal. * The left ventricular mass is mildly increased with concentrichypertrophy. * The left ventricular diastolic function is indeterminate. * The right ventricle is normal in size. * Right ventricular systolic function is normal. * The left atrium is mildly dilated. * The right atrium is normal in size. * The aortic valve is trileaflet and mildly calcified. * The mitral valve is normal and mildly thickened. Patient Info Name: Rosemarie Gillespie Age: 49 years : 1975 Gender: Female Ht: 64 in Wt: 224 lb BSA: 2.19 m2 BP: 104 / 72 mmHg Exam Date: 12/16/2024 9:47 AM Patient Status: I/P Study Site: [facility] Primary Location: [facility] EStudy Info Technical Quality: Adequate Exam Type: ECHO LIMITED OR FOLLOWUP Indications I48.91 - Atrial fibrillation with rapid ventricular response (HCC) - Bacteremia Procedure(s) * A limited 2D and M-Mode transthoracic echocardiogram was performed. Reason for Technically Difficult Study: body habitus, patientsupine Staff Referring Physician: Michelle Purdy Ordering Provider: Michelle Purdy Attending Physician: Michelle Purdy Admission Nurse: Katy Marin [facility] Left Ventricle The left ventricle is normal in size. Left ventricular systolic functionis normal with an estimated ejection fraction of 60-65% by visual estimate.Left ventricular segmental wall motion is normal. The left ventricular massis mildly increased with concentric hypertrophy. The left ventriculardiastolic function is indeterminate. Right Ventricle The right ventricle is normal in size. Right ventricular systolicfunction is normal. Left Atrium The left atrium is mildly dilated. Right Atrium The right atrium is normal in size. Atrial Septum Intact interatrial septum visualized by 2D and color Doppler imaging. Aortic Valve The aortic valve is trileaflet and mildly calcified. Pulmonic Valve The pulmonic valve is normal. Mitral Valve The mitral valve is normal and mildly thickened. Tricuspid Valve The tricuspid valve is normal. Inferior Vena Cava The inferior vena cava is normal in size (< 2.1 cm). There is > 50%collapse of the IVC upon inspiration with an estimated right atrial pressure of 3mmHg. Pericardium/Pleural There is no pericardial effusion. Aorta The aortic root at the sinus of Valsalva is not well visualized. The ascending aorta is not well visualized. Measurements Tricuspid Valve Name Value Normal Estimated PAP/RSVP RA Pressure 3 mmHg <=5 PA Systolic Pressure 30 mmHg <35 Aorta Name Value Normal Ascending Aorta Ao Root Diameter (MM) 3.2 cm Ao Root Diam Index (MM) 1.5 cm/m2 Aortic Valve Name Value Normal AV 2D/MM AV Cusp Sep (MM) 2.0 cm Ventricles Name Value Normal LV Dimensions 2D/MM IVS Diastole Thickness (MM) 1.4 cm 0.6-0.9 LVID Diastole (MM) 5.8 cm 3.8-5.2 LVPW Diastolic Thickness (MM) 1.0 cm 0.6-0.9 IVS Systolic Thickness (MM) 1.8 cm LVID Systole (MM) 4.4 cm 2.2-3.5 LVPW Systolic Thickness (MM) 1.2 cm LV Mass (MM Cubed) 309 g 67-162 LV Mass Index (MM Cubed) 141 g/m2 43-95 Relative Wall Thickness (MM) 0.36 LV Fractional Shortening/Ejection Fraction 2D/MM LV Fractional Shortening (MM) 23 % 27-45 LV EF (MM Teicholz) 46 % 54-74 Atria Name Value Normal LA Dimensions LA Dimension (MM) 3.9 cm 2.7-3.8 Report Signatures Finalized by Tin Block on 12/16/2024 06:13 PM Michelle Purdy DO ECHO CUPID * (ABNORMAL) BASIC METABOLIC PANEL (CALCIUM TOTAL) (12/16/2024 4:53 AM [facility]) Only the most recent of5 resultswithin the time period is included. Glucose 95 70 - 99 mg/dL 12/16/2024 5:46 AM [facility] Sodium 141 136 - 145 mmol/L 12/16/2024 5:46 AM [facility] Potassium 4.5 3.5 - 5.1 mmol/L 12/16/2024 5:46 AM [facility] Chloride 108(H) 98 - 107 mmol/L 12/16/2024 5:46 AM [facility] CO2 28 22 - 29 mmol/L 12/16/2024 5:46 AM [facility] Calcium 8.6 8.4 - 10.4 mg/dL 12/16/2024 5:46 AM [facility] Anion Gap 5(L) 6 - 16 mmol/L 12/16/2024 5:46 AM [facility] BUN 12 7 - 26 mg/dL 12/16/2024 5:46 AM [facility] Creatinine 0.59 0.57 - 1.11 mg/dL 12/16/2024 5:46 AM [facility] eGFR by CKD-EPI >90 >=90 mL/min/1.7 3 m2 12/16/2024 5:46 AM [facility] Blood BLOOD SPECIMEN / Unknown Line Draw / Unknown 12/16/2024 4:53 AM GERIATRIC PHYSICAL THERAPIST 12/16/2024 5:18 AM GERIATRIC PHYSICAL THERAPIST Teri Arora MD LAB - CHEMISTRY ORDE KIMBERLY Performing Organization Address City/[facility]/ZIP Co de Phone Number [facility] [address] [place] [address] * CARDIAC EKG ORDER (12/14/2024 10:07 PM GERIATRIC PHYSICAL THERAPIST) Narrative 12/14/2024 10:07 PM GERIATRIC PHYSICAL THERAPIST Ordered by an unspecified provider. Scanned Document CARDIAC SERVICES ORD ERABLES * CULTURE BLOOD (12/14/2024 10:53 AM GERIATRIC PHYSICAL THERAPIST) Only the most recent of4 resultswithin the time period is included. Culture No growth day 5 ZAHIRA 12/19/2024 1:31 PM GERIATRIC PHYSICAL THERAPIST [facility] Blood PERIPHERAL BLOOD / Unknown Venipuncture / Unknown 12/14/2024 10:53 AM GERIATRIC PHYSICAL THERAPIST 12/14/2024 11:04 AM GERIATRIC PHYSICAL THERAPIST Nasir Jaramillo PIG MACHINE OPERATOR [employer] PROFESSIONAL LAB - MICROB IOLOGY ORDERABLES Performing Organization Address City/[facility]/ZIP Co de Phone Number [facility] [address] [place] [address], [facility] [phone] * (ABNORMAL) BCID PANEL (12/12/2024 5:18 PM GERIATRIC PHYSICAL THERAPIST) Streptococcus species Detected (A) Not detected 12/13/2024 9:28 AM GERIATRIC PHYSICAL THERAPIST [facility] Comment: Streptococcus species (not S. agalactiae, S. pneumoniae, or S. pyogenes). Blood PERIPHERAL BLOOD / Unknown Venipuncture / Unknown 12/12/2024 5:18 PM GERIATRIC PHYSICAL THERAPIST 12/12/2024 5:35 PM GERIATRIC PHYSICAL THERAPIST Narrative [facility] - 12/13/2024 9:28 AM GERIATRIC PHYSICAL THERAPIST Blood Culture ID Panel performed by re3D multiplex PCR. The Test panel includes: Gram Positive Bacteria: Enterococcus faecalis, Enterococcus faecium, Listeria monocytogenes, Staphylococcus (genus), Staphylococcus aureus, Staphylococcus epidermidis, Staphylococcus lugdunensis, Streptococcus (genus), Streptococcus agalactiae (Group B), Streptococcus pneumoniae, Streptococcus pyogenes (Group A). Gram Negative Bacteria: Acinetobacter baumannii complex, Bacteroides fragilis, Haemophilus influenzae, Neisseria meningitidis (encapsulated), Pseudomonas aeruginosa, Stenotrophomonas maltophilia, Enterobacterales (formerly Enterobacteriaceae family), Enterobacter cloacae complex, Escherichia coli, Klebsiella (formerly Enterobacter) aerogenes, Klebsiella oxytoca, Klebsiella pneumoniae group, Proteus (genus), Salmonella species, Serratia marcescens. YEAST: Smiley albicans, Smiley auris, Smiley glabrata, Smiley krusei, Smiley parapsilosis, Smiley tropicalis, Cryptococcus neoformans/gattii. Antimicrobial Resistance Genes: CTX-M (extended-spectrum beta-lactamase), IMP ([place] beta-lactamase), KPC (carbapenemase), mcr-1 (colistin resistance determinant) mecA/C (methicillin-resistance), mecA/C and MREJ (methicillin-resistance - MRSA), NDM ([place] maztgxb-stkq-fziuonkem), OXA-48-like (oxacillinase beta-lactamase),Elaina/B (vancomycin-resistance), VIM ([place] Intergrom-Encoded [place] beta-lactamase). Joshua Powell MD LAB - MICROBIOLOGY O RDERABLES [facility] [address] [place] [address], [facility] [phone] * VAS Right Venous Duplex Ue (12/11/2024 1:30 PM GERIATRIC PHYSICAL THERAPIST) Anatomical Region Laterality Modality Upper Extremity Ultrasound 12/11/2024 1:11 PM GERIATRIC PHYSICAL THERAPIST Narrative Procedure Note Deshaun Pelaez MD - 12/14/2024 [facility] [address] [place] [address] Upper Extremity Venous Ultrasound Report Pat.Name: ROSEMARIE GILLESPIE Pat.ID: [id number] St.Date: 12/11/2024 Exam Time: 1:11:00 PM Study Type:UE Venous Age: 6 1975,49Y Sex: FEMALE Sonogrphr: Shaquille Leal RVT Pat. Stat.:Inpatient Room: [facility] ICD - 9: I48.91, S32.028A CPT - 4: 69247 Reason for Study: Atrial fibrillation with rapid ventricular response, Other closed fracture of second lumbar vertebra, initial encounter Procedures: Upper Extremity Venous - Right Race: [facility] Visit ID: [id number] ++++++++++++++++++++++++++++++++++++ SUMMARY: ++++++++++++++++++++++++++++++++++++ There is no evidence of an acute deep venous thrombosis in the right internal jugular vein. There is no evidence of an acute deep or superificial venous thrombosis in the right upper extremity. ++++++++++++++++++++++++++++++++++++ FINDINGS: ++++++++++++++++++++++++++++++++++++ Procedure: Venous duplex imaging of the right upper extremity, up to and including the internal jugular vein, was performed using color flow and spectral Doppler analysis. The contralateral subclavian vein was also examined. Study Quality: This study is of adequate technical quality. Rt Arm: All vessels seen appear patent and compressible. There was spontaneous and pulsatile flow seen the proximal veins of the right arm. There was spontaneous and phasic flow seen in all the other veins of the right arm. The left subclavian vein demonstrated spontaneous and pulsatile flow. Signed 12/14/2024 06:56 AM Deshaun Pelaez MD Joshua Powell MD VASCULAR LAB ORDERAB LES * EKG 12-LEAD (12/10/2024 12:13 PM GERIATRIC PHYSICAL THERAPIST) Only the most recent of5 resultswithin the time period is included. Ventricular Rate 68 BPM [facility] Atrial Rate 68 BPM [facility] P-R Interval 150 ms [facility] QRS Duration ms 96 ms [facility] Q-T Interval ms 422 ms [facility] QTC Calculation (Bezet) 448 ms [facility] Calculated P [place] 12 degrees [facility] Calculated R [place] 64 degrees [facility] Calculated T [place] 70 degrees [facility] Interpretation EKG Normal sinus rhythm Normal ECG When compared with ECG of 10-DEC-2024 08:44, No significant change was found Confirmed by JACQUIE GONGORA, [facility]ITAL[facility]ina SANTOS ([id number]) on 12/14/2024 10:31:26 AM [facility] 12/10/2024 12:1 3 PM GERIATRIC PHYSICAL THERAPIST 12/14/2024 10:31 AM GERIATRIC PHYSICAL THERAPIST Lennie Cabezas MD ECG ORDERABLES [facility] * ECHO EDIS COMPLETE (12/10/2024 10:25 AM GERIATRIC PHYSICAL THERAPIST) TR pk estrellita 216.798 cm/s [facility] CV FUJ I PACS Anatomical Region Laterality Modality Ultrasound 12/10/2024 7:59 AM GERIATRIC PHYSICAL THERAPIST Narrative 12/10/2024 9:53 PM GERIATRIC PHYSICAL THERAPIST Summary * Left ventricular systolic function is normal. EF 50-55%. * Right ventricle is normal in size with normal systolic function. * The left atrium is moderately to severely dilated. * The left atrial appendage is normal in shape with normal velocity, and there is no thrombus. * There is mild tricuspid valve regurgitation. * There is mild to moderate mitral valve regurgitation. * The pulmonary artery systolic pressure is normal, 27 mmHg. Patient Info Name: Rosemarie Gillespie Age: 49 years : 1975 Gender: Female Ht: 64 in Wt: 224 lb BSA: 2.19 m2 BP: 126 / 92 mmHg Exam Date: 12/10/2024 7:59 AM Patient Status: I/P Study Site: [facility] Primary Location: [facility] EStudy Info Exam Type: ECHO EDIS COMPLETE Indications I48.91 - Atrial fibrillation with rapid ventricular response (HCC) * A complete transesophageal echo was performed using 2D, color Doppler, and spectral Doppler. Staff Referring Physician: Maira Plaza Ordering Provider: Maira Plaza Attending Physician: Maira Plaza Admission Nurse: Jeanne Foster Medications * Propofol and Fentanyl administered during exam. * Sedation administered and monitored by anesthesia staff. Procedure Details The procedure was completed without complications. The patient arrived in a fasting state after obtaining informed consent. The transesophageal probe was passed without difficulty into the posterior pharynx, mid-esophagus, distal esophagus, and gastric fundus. Imaging was performed at multiple levels. The patient tolerated the procedure well and there were no complications. The patient was transferred out of the examination area in satisfactory condition. Probe passed by the motion picture camera operator without difficulty. Left Ventricle The left ventricle is normal in size. Left ventricular systolic function is normal. EF 50-55%. Left ventricular segmental wall motion is normal. Right Ventricle The right ventricle is normal in size. Right ventricular systolic function is normal. Left Atrium The left atrium is moderately to severely dilated. Right Atrium The right atrium is dilated. Atrial Septum Intact interatrial septum visualized by 2D and color Doppler imaging. Atrial Appendage The left atrial appendage is normal in shape with normal velocity, and there is no thrombus. Aortic Valve The aortic valve is trileaflet. There is no aortic valve stenosis. There is no aortic valve regurgitation. Pulmonic Valve The pulmonic valve is normal. There is no pulmonic regurgitation. Mitral Valve The mitral valve is normal. There is no mitral valve stenosis. There is mild to moderate mitral valve regurgitation. Tricuspid Valve The tricuspid valve is normal. There is mild tricuspid valve regurgitation. The pulmonary artery systolic pressure is normal, 27 mmHg. Pericardium/Pleural There is no pericardial effusion. Inferior Vena Cava The inferior vena cava is not well visualized and therefore the right atrial pressure is assumed to be 8 mmHg. Aorta The aortic root at the sinus of Valsalva is normal in size. The ascending aorta is normal in size. Measurements Tricuspid Valve Name Value Normal TV Regurgitation Doppler TR Peak Velocity 2.2 m/s TR Peak Gradient 19 mmHg Estimated PAP/RSVP RA Pressure 8 mmHg <=5 PA Systolic Pressure 27 mmHg <35 RV Systolic Pressure 27 mmHg <36 Aorta Name Value Normal Ascending Aorta Ao Root Diameter (2D) 3.0 cm Ao Root Diam Index (2D) 1.4 cm/m2 Report Signatures Finalized by Maira Plaza on 12/10/2024 09:53 PM Procedure Note Maira Plaza MD - 12/10/2024 Summary * Left ventricular systolic function is normal. EF 50-55%. * Right ventricle is normal in size with normal systolic function. * The left atrium is moderately to severely dilated. * The left atrial appendage is normal in shape with normal velocity,and there is no thrombus. * There is mild tricuspid valve regurgitation. * There is mild to moderate mitral valve regurgitation. * The pulmonary artery systolic pressure is normal, 27 mmHg. Patient Info Name: Rosemarie Gillespie Age: 49 years : 1975 Gender: Female Ht: 64 in Wt: 224 lb BSA: 2.19 m2 BP: 126 / 92 mmHg Exam Date: 12/10/2024 7:59 AM Patient Status: I/P Study Site: [facility] Primary Location: [facility] EStudy Info Exam Type: ECHO EDIS COMPLETE Indications I48.91 - Atrial fibrillation with rapid ventricular response (HCC) * A complete transesophageal echo was performed using 2D, color Doppler,and spectral Doppler. Staff Referring Physician: Maira Plaza Ordering Provider: Maira Plaza Attending Physician: Maira Plaza Admission Nurse: Jeanne Foster Medications * Propofol and Fentanyl administered during exam. * Sedation administered and monitored by anesthesia staff. Procedure Details The procedure was completed without complications. The patient arrivedin a fasting state after obtaining informed consent. The transesophageal probewas passed without difficulty into the posterior pharynx, mid-esophagus,distal esophagus, and gastric fundus. Imaging was performed at multiple levels.The patient tolerated the procedure well and there were no complications.The patient was transferred out of the examination area in satisfactorycondition. Probe passed by the motion picture camera operator without difficulty. Left Ventricle The left ventricle is normal in size. Left ventricular systolic functionis normal. EF 50-55%. Left ventricular segmental wall motion is normal. Right Ventricle The right ventricle is normal in size. Right ventricular systolicfunction is normal. Left Atrium The left atrium is moderately to severely dilated. Right Atrium The right atrium is dilated. Atrial Septum Intact interatrial septum visualized by 2D and color Doppler imaging. Atrial Appendage The left atrial appendage is normal in shape with normal velocity, andthere is no thrombus. Aortic Valve The aortic valve is trileaflet. There is no aortic valve stenosis. Thereis no aortic valve regurgitation. Pulmonic Valve The pulmonic valve is normal. There is no pulmonic regurgitation. Mitral Valve The mitral valve is normal. There is no mitral valve stenosis. There ismild to moderate mitral valve regurgitation. Tricuspid Valve The tricuspid valve is normal. There is mild tricuspid valveregurgitation. The pulmonary artery systolic pressure is normal, 27 mmHg. Pericardium/Pleural There is no pericardial effusion. Inferior Vena Cava The inferior vena cava is not well visualized and therefore the rightatrial pressure is assumed to be 8 mmHg. Aorta The aortic root at the sinus of Valsalva is normal in size. Theascending aorta is normal in size. Measurements Tricuspid Valve Name Value Normal TV Regurgitation Doppler TR Peak Velocity 2.2 m/s TR Peak Gradient 19 mmHg Estimated PAP/RSVP RA Pressure 8 mmHg <=5 PA Systolic Pressure 27 mmHg <35 RV Systolic Pressure 27 mmHg <36 Aorta Name Value Normal Ascending Aorta Ao Root Diameter (2D) 3.0 cm Ao Root Diam Index (2D) 1.4 cm/m2 Report Signatures Finalized by Maira Plaza on 12/10/2024 09:53 PM Maira Plaza MD ECHO CUPID * CCL INTRA PROCEDURE EDIS, CCL CARDIOVERSION (12/10/2024 8:41 AM GERIATRIC PHYSICAL THERAPIST) Anatomical Region Laterality Modality X-Ray Angiograph y Narrative 12/11/2024 6:20 PM GERIATRIC PHYSICAL THERAPIST .Cardioversion: Consent for operation or procedure: Risks and benefits discussed with patient and consent obtained Anesthesia: propofol, administered and monitored per anesthesiologist The appropriate time-out procedure was performed including proper identification of the patient, physician, procedure, documentation, and there were no safety issues identified. The patient participated actively in this. After sedation was achieved, EDIS was performed and no LA or KRYSTLE clots were identified (full report to follow). After EDIS was completed, hands free patches were placed on the patient chest in the AP position. 1 shock was provided at, 200 Joules with successful resumption of normal sinus rhythm. This was confirmed on EKG. Repeat EKG confirms return to sinus rhythm. Complications: The patient tolerated the procedure well without complications. Maira Plaza MD 12/10/24 Procedure Details Estimated Blood Loss: NA mL Maira Plaza MD CV CARDIAC CATH C UPID PROCS * XR Lumbar Spine 2 or 3Vw (12/08/2024 5:24 PM GERIATRIC PHYSICAL THERAPIST) Anatomical Region Laterality Modality Spine Computed Radiogr aphy 12/08/2024 9:23 PM GERIATRIC PHYSICAL THERAPIST Narrative 12/08/2024 9:25 PM GERIATRIC PHYSICAL THERAPIST EXAM: XR LUMBAR SPINE 2 OR 3VW INDICATION: S32.028A: Other fracture of second lumbar vertebra, initial encounter for closed fracture (HCC) COMPARISON: None FINDINGS: 5 nonrib-bearing lumbar-type vertebral bodies. Mild straightening of the normal lumbar lordosis. No spondylolisthesis. Mild anterior wedging of the L1, L2, and L3 vertebral bodies suspicious for age indeterminant compression fractures. Mild degenerative endplate changes scattered throughout the lumbar spine. Unremarkable facets. > Interpreting Provider: Warner Burciaga MD on 12/08/2024 9:25 PM Procedure Note Warner Burciaga MD - 12/08/2024 EXAM: XR LUMBAR SPINE 2 OR 3VW INDICATION: S32.028A: Other fracture of second lumbar vertebra, initial encounter for closed fracture (HCC) COMPARISON: None FINDINGS: 5 nonrib-bearing lumbar-type vertebral bodies. Mild straightening of the normal lumbar lordosis. No spondylolisthesis. Mild anterior wedging ofthe L1, L2, and L3 vertebral bodies suspicious for age indeterminant compression fractures. Mild degenerative endplate changes scattered throughout the lumbar spine. Unremarkable facets. > Interpreting Provider: Warner Burciaga MD on 12/08/2024 9:25 PM Kiel Gardner MD DIAGNOSTIC IMAGING O RDERABLES * HEMOGLOBIN A1C (12/08/2024 3:49 AM GERIATRIC PHYSICAL THERAPIST) Hemoglobin A1c 5.5 <5.7 % 12/08/2024 4:43 AM GERIATRIC PHYSICAL THERAPIST [facility] Estimated Average Glucose 111 mg/dL 12/08/2024 4:43 AM [facility] Blood BLOOD SPECIMEN / Unknown Venipuncture / Unknown 12/08/2024 3:49 AM GERIATRIC PHYSICAL THERAPIST 12/08/2024 4:11 AM GERIATRIC PHYSICAL THERAPIST Narrative [facility] - 12/08/2024 4:43 AM GERIATRIC PHYSICAL THERAPIST HbA1c Interpretation: Normal: < 5.7% Pre-diabetes: 5.7-6.4% Diabetes: Equal to or greater than 6.5% Test results diagnostic of diabetes should be repeated for confirmation. Treatment target values recommended by ADA and other clinical organizations should be used to evaluate metabolic control in patients. This test should not replace glucose testing for patients with Type 1 diabetes, pediatric patients, or women. Falsely low HbA1c results may be observed in patients with clinical conditions that shorten erythrocyte life span or decrease mean erythrocyte age such as the presence of unstable hemoglobin variants, elevated hemoglobin F level or other causes of hemolytic anemia. HbA1c may not accurately reflect glycemic control when clinical conditions that affect erythrocyte survival are present. Severe Iron deficiency anemia may yield falsely high results. Hemoglobin A1c assay should not be used to diagnose or monitor diabetes in patients with malignancy, recent blood transfusion, chronic kidney or liver disease. This method may yield falsely low results when hemoglobin (HbF) exceeds 5% in the specimen. The [place] Alinity assay for the measurement of HbA1c is a National Glycohemoglobin Standardization Program (NGSP) certified method. Kiel Gardner MD LAB - CHEMISTRY [place] [facility] Organization Address City/State/ZIP Co de Phone Number [facility] [address] [place] [address] * MAGNESIUM BLOOD (12/08/2024 3:49 AM GERIATRIC PHYSICAL THERAPIST) Only the most recent of2 resultswithin the time period is included. Magnesium 2.4 1.6 - 2.6 mg/dL 12/08/2024 4:58 AM GERIATRIC PHYSICAL THERAPIST [facility] Blood BLOOD SPECIMEN / Unknown Venipuncture / Unknown 12/08/2024 3:49 AM GERIATRIC PHYSICAL THERAPIST 12/08/2024 4:11 AM GERIATRIC PHYSICAL THERAPIST Kiel Gardner MD LAB - CHEMISTRY [place] Performing Organization Address [facility] Co de Phone Number [facility] [id number] [place] [phone] * (ABNORMAL) TROPONIN-I HIGH SENSITIVE (12/07/2024 11:13 AM GERIATRIC PHYSICAL THERAPIST) Pathologist [facility] Troponin I High Sensitive 16(H) <=14 ng/L 12/07/2024 11:49 AM GERIATRIC PHYSICAL THERAPIST [facility] Blood BLOOD SPECIMEN / Unknown Venipuncture / Unknown 12/07/2024 11:13 AM GERIATRIC PHYSICAL THERAPIST 12/07/2024 11:22 AM GERIATRIC PHYSICAL THERAPIST Kiel Gardner MD LAB - CHEMISTRY [place] Performing Organization Address [facility] Co de Phone Number [facility] [id number] [place] [phone] * (ABNORMAL) B-TYPE NATRIURETIC PEPTIDE (12/07/2024 11:13 AM GERIATRIC PHYSICAL THERAPIST) Pathologist [facility] BNP 191(H) <=100 pg/mL 12/07/2024 11:53 AM GERIATRIC PHYSICAL THERAPIST [facility] Blood BLOOD SPECIMEN / Unknown Venipuncture / Unknown 12/07/2024 11:13 AM GERIATRIC PHYSICAL THERAPIST 12/07/2024 11:22 AM GERIATRIC PHYSICAL THERAPIST Kiel Gardner MD LAB - CHEMISTRY [facility] Performing Organization Address [facility] Co de Phone Number [facility] [id number] [place] [id number] * TSH (12/07/2024 11:13 AM GERIATRIC PHYSICAL THERAPIST) TSH 1.6472 0.35 - 4.94 uIU/mL 12/07/2024 12:12 PM GERIATRIC PHYSICAL THERAPIST [facility] Blood BLOOD SPECIMEN / Unknown Venipuncture / Unknown 12/07/2024 11:13 AM GERIATRIC PHYSICAL THERAPIST 12/07/2024 11:22 AM GERIATRIC PHYSICAL THERAPIST Kiel Gardner MD LAB - CHEMISTRY [facility] [address] [place] [address] from Last 3 Months Advance Directives * Full Code (Latest Code Status on File) Date Activated Date Inactivated Comments 12/07/2024 8:32 AM 12/17/2024 5:46 PM Care Teams [employer] Administrator Relationship Specialty Start Date End Date Joseph Shelton MD [address] [place] [address] PCP - General Family Medicine 12/07/24
--- OUTSIDE RECORDS SUMMARY | 2024-12-30 14:37 | XMS_ITS | Clinical Summary ---
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 Gender Identity Not on file Sexual Orientation Not on file Plan of Treatment Health Maintenance Due Date Last Done Comments Breast Cancer Screening-Mammogram 1974 Cervical Cancer Screening 1974 Colon Cancer Screening-Colonoscopy 1974 Depression Screening 1974 Hepatitis C Screening 1974 DTaP/Tdap/Td Vaccine (1 - Tdap) 1985 Hepatitis B Screening 1992 Regular Well Visit/Exam 18-64 1992 Zoster Vaccine (1 of 2) 2024 Covid-19 Vaccine (3 - 2023-2 5 season) 2024 12/07/2021, 11/16/2021 Influenza Vaccine (#1) 2024 Pneumococcal vaccine <65 Aged Out No longer eligible based on patient's age to complete this topic Insurance [employer] Care Teams Back Feeder [employer] Layup Line Relationship Specialty Start Date End Date Joseph Shelton MD PCP - General Family Medicine 12/06/23
--- OUTSIDE RECORDS SUMMARY | 2024-12-30 14:37 | XMS_ITS | Patient Health Summary ---
Author Organization [facility] Address [address] [place] [address] Care Team Providers Care Agriculture Department Chair Name Role Phone Joseph Shelton MD Primary Care Provider [phone] Note from [facility],non-owned Affiliates and Associated Physician Practices is amultiple site organization consisting of ambulatory clinics and hospital sitesin [place], [place], [place] and [place]. This disclosure is being madepursuant to the Care Everywhere program and may not contain all information available regarding this patient. Last updated 18.[facility] [employer] Allergies * Cefadroxil(GI Discomfort) -Low Criticality Medications * Be aware that medications may not be up to date on this document. Alwaysverify current medications with the patient. * sotalol (Betapace) 80 MG tablet Take 1 (one) tablet by mouth 2 times daily * PARoxetine (Paxil) 30 MG tablet Take 1 (one) tablet by mouth at bedtime * metFORMIN (Glucophage) 500 MG tablet Take 1 (one) tablet by mouth 2 times daily with morning and evening meal * rosuvastatin (Crestor) 20 MG tablet Take 1 (one) tablet by mouth once daily * busPIRone (Buspar) 7.5 MG tablet Take 1 (one) tablet by mouth 2 times daily * acetaminophen (Tylenol) 325 MG tablet Take 2 (two) tablets by mouth every 4 hours as needed for Fever or Pain Maximum allowable Acetaminophen amount = 4 Grams (4000 mg) / 24 hours. * buPROPion SR 12hr (Wellbutrin-SR) 150 MG tablet Take 1 (one) tablet by mouth 2 times daily * apixaban (Eliquis) 5 MG tablet Take 1 (one) tablet by mouth 2 times daily * ALPRAZolam (Xanax) 0.5 MG tablet Take 1 (one) tablet by mouth 2 times daily * pregabalin (Lyrica) 150 MG capsule Take 1 (one) capsule by mouth 2 times daily * albuterol HFA (Proventil; Ventolin; Proair) 108 (90 Base) MCG/ACT inhaler Inhale 2 (two) puffs by mouth every 6 hours as needed for Wheezing or Shortness of Breath * caywmqz-aatqfhfrqlt-jpsnurcqnp (Breztri Aerosphere) 160-9-4.8 MCG/ACT inhaler Inhale 2 (two) puffs by mouth 2 times daily * HYDROcodone-acetaminophen ([place]) 5-325 MG tablet(Started 12/17/2024) Take 1 (one) tablet by mouth every 6 hours as needed * metoprolol tartrate IR (Lopressor) 25 MG tablet(Started 12/17/2024) Take 0.5 (one-half) tablet by mouth 2 times daily * cefTRIAXone 2 g 2,000 mg in 0.9% NaCl IV 0.9 % 50 mL(Started 12/17/2024) 2,000 (two thousand) mg by Intravenous route every 24 hours Continue ceftriaxone 2 gm IV daily until 12/28 Weekly CBC with diff and CMP. Please fax results to [phone]. Follow up with Dr. Gilmore in 1-2 weeks/PRN. Please call [phone] for scheduling. Discontinue PICC after last dose of abx. * lidocaine (Lidoderm) 5 % patch(Started 12/18/2024) Apply 1 (one) patch to skin every 24 hours Apply patch to most painful area and remove after 12 hours. May reapply a new patch 12 hours later. * senna-docusate (Senokot-S) 8.6-50 MG tablet(Started 12/17/2024) Take 1 (one) tablet by mouth 2 times daily as needed for Constipation * cyclobenzaprine (Flexeril) 10 MG tablet(Started 12/17/2024) Take 1 (one) tablet by mouth 3 times daily as needed for Muscle Spasms Ended Medications* lisinopril (Prinivil; Zestril) 40 MG tablet(Discontinued) Take 1 (one) tablet by mouth once daily * amLODIPine (Norvasc) 10 MG tablet(Discontinued) Take 1 (one) tablet by mouth once daily Resolved Problems Problem Noted Date Diagnosed Date Resolved Date Atrial fibrillation with rap id ventricular response 12/06/2024 12/17/2024 Social History Tobacco Use Types Packs/Day Years Used Date Smoking Tobacco: Never Tobacco Cessation:Counseling Given: Not Answered Sex and Gender Information Value Date Recorded Sex Assigned at Not on file Gender Identity Not on file Sexual Orientation Not on file Last Filed Vital Signs Vital Sign Reading Time Taken Comments Blood Pressure 124/74 12/17/2024 11:56 AM SAND SLINGER OPERATOR Pulse 60 12/17/2024 11:56 AM SAND SLINGER OPERATOR Temperature 36.6 C (97.8 F) 12/17/2024 11:56 AM SAND SLINGER OPERATOR Respiratory Rate 17 12/17/2024 11:56 AM SAND SLINGER OPERATOR Oxygen Saturation 94% 12/17/2024 11:56 AM SAND SLINGER OPERATOR Inhaled Oxygen Concentration - - Weight 101.6 kg (224 lb) 12/07/2024 2:40 PM SAND SLINGER OPERATOR Height 162.6 cm (5' 4 ) 12/07/2024 2:40 PM SAND SLINGER OPERATOR Body Mass Index 38.45 12/07/2024 2:40 PM SAND SLINGER OPERATOR Procedures * CARDIAC RHYTHM STRIP ORDER(Performed 12/18/2024) * GLUCOSE - POINT OF CARE(Performed 12/17/2024) * GLUCOSE - POINT OF CARE(Performed 12/17/2024) * COMPREHENSIVE METABOLIC PANEL(Performed 12/17/2024) * CBC W AUTO DIFFERENTIAL(Performed 12/17/2024) * GLUCOSE - POINT OF CARE(Performed 12/16/2024) * GLUCOSE - POINT OF CARE(Performed 12/16/2024) * ECHO LIMITED OR FOLLOWUP(Performed 12/16/2024) Performed for Atrial fibrillation with rapid ventricular response (HCC) * GLUCOSE - POINT OF CARE(Performed 12/16/2024) * GLUCOSE - POINT OF CARE(Performed 12/16/2024) * BASIC METABOLIC PANEL (CALCIUM TOTAL)(Performed 12/16/2024) * GLUCOSE - POINT OF CARE(Performed 12/15/2024) * GLUCOSE - POINT OF CARE(Performed 12/15/2024) * GLUCOSE - POINT OF CARE(Performed 12/15/2024) * GLUCOSE - POINT OF CARE(Performed 12/15/2024) * BASIC METABOLIC PANEL (CALCIUM TOTAL)(Performed 12/15/2024) * CBC W AUTO DIFFERENTIAL(Performed 12/15/2024) * HOME CPAP/BIPAP FOR HOSP USE: NOCTURNAL 02(Performed 12/15/2024) * CARDIAC EKG ORDER(Performed 12/14/2024) * GLUCOSE - POINT OF CARE(Performed 12/14/2024) * GLUCOSE - POINT OF CARE(Performed 12/14/2024) * CULTURE BLOOD(Performed 12/14/2024) * CULTURE BLOOD(Performed 12/14/2024) * GLUCOSE - POINT OF CARE(Performed 12/14/2024) * BASIC METABOLIC PANEL (CALCIUM TOTAL)(Performed 12/14/2024) * CBC W AUTO DIFFERENTIAL(Performed 12/14/2024) * HOME CPAP/BIPAP FOR HOSP USE: NOCTURNAL 02(Performed 12/14/2024) * GLUCOSE - POINT OF CARE(Performed 12/13/2024) * GLUCOSE - POINT OF CARE(Performed 12/13/2024) * GLUCOSE - POINT OF CARE(Performed 12/13/2024) * BASIC METABOLIC PANEL (CALCIUM TOTAL)(Performed 12/13/2024) * CBC W AUTO DIFFERENTIAL(Performed 12/13/2024) * HOME CPAP/BIPAP FOR HOSP USE: NOCTURNAL 02(Performed 12/13/2024) * CULTURE BLOOD(Performed 12/12/2024) * BCID PANEL(Performed 12/12/2024) * CULTURE BLOOD(Performed 12/12/2024) * GLUCOSE - POINT OF CARE(Performed 12/12/2024) * HOME CPAP/BIPAP FOR HOSP USE: NOCTURNAL 02(Performed 12/12/2024) * HOME CPAP/BIPAP FOR HOSP USE: NOCTURNAL 02(Performed 12/12/2024) * VAS RIGHT VENOUS DUPLEX UE(Performed 12/11/2024) Performed for Atrial fibrillation with rapid ventricular response (HCC), Other closed fracture of second lumbar vertebra, initial encounter ([facility]) * GLUCOSE - POINT OF CARE(Performed 12/11/2024) * GLUCOSE - POINT OF CARE(Performed 12/11/2024) * GLUCOSE - POINT OF CARE(Performed 12/11/2024) * GLUCOSE - POINT OF CARE(Performed 12/10/2024) * GLUCOSE - POINT OF CARE(Performed 12/10/2024) * GLUCOSE - POINT OF CARE(Performed 12/10/2024) * EKG 12-LEAD(Performed 12/10/2024) Performed for Atrial fibrillation with rapid ventricular response (HCC) * ECHO EDIS COMPLETE(Performed 12/10/2024) Performed for Atrial fibrillation with rapid ventricular response (HCC) * EKG 12-LEAD(Performed 12/10/2024) Performed for Atrial fibrillation with rapid ventricular response (HCC) * CCL CARDIOVERSION(Performed 12/10/2024) Performed for Atrial fibrillation with rapid ventricular response (HCC) * CCL INTRA PROCEDURE EDIS(Performed 12/10/2024) Performed for Atrial fibrillation with rapid ventricular response (HCC) * GLUCOSE - POINT OF CARE(Performed 12/10/2024) * EKG 12-LEAD(Performed 12/09/2024) Performed for Atrial fibrillation with rapid ventricular response (HCC) * GLUCOSE - POINT OF CARE(Performed 12/09/2024) * EKG 12-LEAD(Performed 12/09/2024) Performed for Atrial fibrillation with rapid ventricular response (HCC) * GLUCOSE - POINT OF CARE(Performed 12/09/2024) * GLUCOSE - POINT OF CARE(Performed 12/09/2024) * GLUCOSE - POINT OF CARE(Performed 12/09/2024) * ECHO COMPLETE(Performed 12/09/2024) Performed for Atrial fibrillation with rapid ventricular response (HCC) * GLUCOSE - POINT OF CARE(Performed 12/08/2024) * XR LUMBAR SPINE 2 OR 3VW(Performed 12/08/2024) Performed for Other closed fracture of second lumbar vertebra, initial encounter (HCC) * GLUCOSE - POINT OF CARE(Performed 12/08/2024) * GLUCOSE - POINT OF CARE(Performed 12/08/2024) * GLUCOSE - POINT OF CARE(Performed 12/08/2024) * GLUCOSE - POINT OF CARE(Performed 12/08/2024) * GLUCOSE - POINT OF CARE(Performed 12/08/2024) * EKG 12-LEAD(Performed 12/08/2024) Performed for Atrial fibrillation with rapid ventricular response (HCC) * GLUCOSE - POINT OF CARE(Performed 12/08/2024) * MAGNESIUM BLOOD(Performed 12/08/2024) * BASIC METABOLIC PANEL (CALCIUM TOTAL)(Performed 12/08/2024) * HEMOGLOBIN A1C(Performed 12/08/2024) * GLUCOSE - POINT OF CARE(Performed 12/07/2024) * GLUCOSE - POINT OF CARE(Performed 12/07/2024) * TSH(Performed 12/07/2024) * MAGNESIUM BLOOD(Performed 12/07/2024) * TROPONIN-I HIGH SENSITIVE(Performed 12/07/2024) * COMPREHENSIVE METABOLIC PANEL(Performed 12/07/2024) * CBC W AUTO DIFFERENTIAL(Performed 12/07/2024) * B-TYPE NATRIURETIC PEPTIDE(Performed 12/07/2024) Results * CARDIAC RHYTHM STRIP ORDER (12/18/2024 10:49 PM SAND SLINGER OPERATOR) Narrative 12/18/2024 10:49 PM SAND SLINGER OPERATOR Ordered by an unspecified provider. Scanned Document CARDIAC SERVICES ORD ERABLES * GLUCOSE - POINT OF CARE (12/17/2024 11:55 AM SAND SLINGER OPERATOR) Only the most recent of37 resultswithin the time period is included. [facility] Glucose WB/POC 99 70 - 99 mg/dL 12/17/2024 12:36 PM SAND SLINGER OPERATOR [facility] Specimen Type Cap Fingerstick 2024 12:36 PM SAND SLINGER OPERATOR [facility] Blood BLOOD SPECIMEN / Unknown 12/17/2024 11:55 AM SAND SLINGER OPERATOR 12/17/2024 12:36 PM SAND SLINGER OPERATOR Teri Arora MD LAB - POINT OF CARE ORDERABLES [facility] [address] [place] [address] * (ABNORMAL) CBC W AUTO DIFFERENTIAL (12/17/2024 5:19 AM SAND SLINGER OPERATOR) Only the most recent of5 resultswithin the time period is included. [facility] WBC 4.7 4.0 - 10.7 x10E9/L 12/17/2024 5:57 AM SAND SLINGER OPERATOR [facility] RBC Count 3.47(L) 3.90 - 5.20 x10E12/L 12/17/2024 5:57 AM SAND SLINGER OPERATOR [facility] Hemoglobin 10.9(L) 11.9 - 15.8 g/dL 12/17/2024 5:57 AM SAND SLINGER OPERATOR [facility] Hematocrit 34.0(L) 34.8 - 46.1 % 12/17/2024 5:57 AM SAND SLINGER OPERATOR [facility] MCV 98.0 80.0 - 98.0 fL 12/17/2024 5:57 AM [facility] MCH 31.4 26.7 - 33.6 pg 12/17/2024 5:57 AM [facility] MCHC 32.1 31.7 - 36.3 g/dL 12/17/2024 5:57 AM [facility] RDW-CV 14.2 11.3 - 14.8 % 12/17/2024 5:57 AM [facility] Platelet Count 179 150 - 420 x10E9/L 12/17/2024 5:57 AM [facility] MPV 10.7 7.8 - 11.4 fL 12/17/2024 5:57 AM [facility] Neutrophil % 56.8 41.0 - 74.0 % 12/17/2024 5:57 AM [facility] Lymphocyte % 29.3 17.0 - 47.0 % 12/17/2024 5:57 AM [facility] Monocyte % 10.7 3.0 - 11.0 % 12/17/2024 5:57 AM [facility] Eosinophil % 2.4 0.0 - 7.0 % 12/17/2024 5:57 AM [facility] Basophil % 0.6 0.0 - 1.6 % 12/17/2024 5:57 AM [facility] Immature Granulocytes % 0.2 0.0 - 1.0 % 12/17/2024 5:57 AM [facility] Neutrophil Absolute 2.66 1.60 - 7.50 x10E9/L 12/17/2024 5:57 AM [facility] Lymphocyte Absolute 1.37 1.00 - 4.40 x10E9/L 12/17/2024 5:57 AM [facility] Monocyte Absolute 0.50 0.15 - 1.00 x10E9/L 12/17/2024 5:57 AM [facility] Eosinophil Absolute 0.11 0.00 - 0.60 x10E9/L 12/17/2024 5:57 AM [facility] Basophil Absolute 0.03 0.00 - 0.13 x10E9/L 12/17/2024 5:57 AM [facility] Blood BLOOD SPECIMEN / Unknown Line Draw / Unknown 12/17/2024 5:19 AM SAND SLINGER OPERATOR 12/17/2024 5:26 AM [facility] Nasir Jaramillo TONE ARTIST APPRENTICE-CENTER MACHINE OPERATOR LAB - HEMATO LOGY ORDERABLES [facility] [address] [place] [address] * (ABNORMAL) COMPREHENSIVE METABOLIC PANEL (12/17/2024 5:19 AM [facility]) Only the most recent of2 resultswithin the time period is included. [facility] Glucose 93 70 - 99 mg/dL 12/17/2024 5:49 AM [facility] Sodium 142 136 - 145 mmol/L 12/17/2024 5:49 AM [facility] Potassium 4.4 3.5 - 5.1 mmol/L 12/17/2024 5:49 AM [facility] Chloride 107 98 - 107 mmol/L 12/17/2024 5:49 AM [facility] CO2 28 22 - 29 mmol/L 12/17/2024 5:49 AM [facility] Calcium 8.6 8.4 - 10.4 mg/dL 12/17/2024 5:49 AM [facility] Anion Gap 7 6 - 16 mmol/L 12/17/2024 5:49 AM [facility] BUN 17 7 - 26 mg/dL 12/17/2024 5:49 AM [facility] Creatinine 0.58 0.57 - 1.11 mg/dL 12/17/2024 5:49 AM [facility] Alkaline Phosphatase 79 40 - 150 U/L 12/17/2024 5:49 AM [facility] ALT 47 0 - 55 U/L 12/17/2024 5:49 AM [facility] AST 25 5 - 34 U/L 12/17/2024 5:49 AM [facility] Protein Total 5.4(L) 6.4 - 8.3 gm/dL 12/17/2024 5:49 AM [facility] Albumin 2.6(L) 3.4 - 5.0 gm/dL 12/17/2024 5:49 AM [facility] Bilirubin Total 0.2 0.2 - 1.2 mg/dL 12/17/2024 5:49 AM SAND SLINGER OPERATOR [facility] eGFR by CKD-EPI >90 >=90 mL/min/1.7 3 m2 12/17/2024 5:49 AM SAND SLINGER OPERATOR [facility] Blood BLOOD SPECIMEN / Unknown Line Draw / Unknown 12/17/2024 5:19 AM SAND SLINGER OPERATOR 12/17/2024 5:26 AM SAND SLINGER OPERATOR Nasir Aarmis Ella TONE ARTIST APPRENTICE-CENTER MACHINE OPERATOR LAB - CHEMIS TRY ORDERABLES [facility] [address] [place] [address] * ECHO LIMITED OR FOLLOWUP (12/16/2024 11:52 AM SAND SLINGER OPERATOR) Only the most recent of2 resultswithin the time period is included. Myocardial strain charge 2 unitless [facility] CV FUJI PACS Anatomical Region Laterality Modality Ultrasound 12/16/2024 9:47 AM SAND SLINGER OPERATOR Narrative 12/16/2024 6:13 PM SAND SLINGER OPERATOR Summary * The left ventricle is normal [...] 9:47 AM Patient Status: I/P [facility] Primary Location: [facility] EStudy Info Technical Quality: Adequate Exam Type: ECHO LIMITED OR FOLLOWUP Indications I48.91 - Atrial fibrillation with rapid ventricular response (HCC) - Bacteremia Procedure(s) * A limited 2D and M-Mode transthoracic echocardiogram was performed. Reason for Technically Difficult Study: body habitus, patient supine Staff Referring Physician: Michelle Purdy Ordering Provider: Michelle Purdy Attending Physician: Michelle Purdy Purchase Price Analyst: Katy Marin [facility] Left Ventricle The left ventricle is normal [...] 9:47 AM Patient Status: I/P [facility] Primary Location: [facility] EStudy Info Technical Quality: Adequate Exam Type: ECHO LIMITED OR FOLLOWUP Indications I48.91 - Atrial fibrillation with rapid ventricular response (HCC) - Bacteremia Procedure(s) * A limited 2D and M-Mode transthoracic echocardiogram was performed. Reason for Technically Difficult Study: body habitus, patientsupine Staff Referring Physician: Michelle Purdy Ordering Provider: Micehlle Purdy Attending Physician: Michelle Purdy Purchase Price Analyst: Katy Marin [facility] Left Ventricle The left ventricle is normal [...] METABOLIC PANEL (CALCIUM TOTAL) (12/16/2024 4:53 AM [facility]) Only the most recent of5 resultswithin the time period is included. Glucose 95 70 - 99 mg/dL 12/16/2024 5:46 AM [facility] Sodium 141 136 - 145 mmol/L 12/16/2024 5:46 AM [facility] Potassium 4.5 3.5 - 5.1 mmol/L 12/16/2024 5:46 AM [facility] Chloride 108(H) 98 - 107 mmol/L 12/16/2024 5:46 AM [facility] CO2 28 22 - 29 mmol/L 12/16/2024 5:46 AM [facility] Calcium 8.6 8.4 - 10.4 mg/dL 12/16/2024 5:46 AM [facility] Anion Gap 5(L) 6 - 16 mmol/L 12/16/2024 5:46 AM [facility] BUN 12 7 - 26 mg/dL 12/16/2024 5:46 AM [facility] Creatinine 0.59 0.57 - 1.11 mg/dL 12/16/2024 5:46 AM SAND SLINGER OPERATOR [facility] eGFR by CKD-EPI >90 >=90 mL/min/1.7 3 m2 12/16/2024 5:46 AM SAND SLINGER OPERATOR [facility] Blood BLOOD SPECIMEN / Unknown Line Draw / Unknown 12/16/2024 4:53 AM SAND SLINGER OPERATOR 12/16/2024 5:18 AM SAND SLINGER OPERATOR Teri Arora MD LAB - CHEMISTRY ORDE KIMBERLY Performing Organization Address City/[facility] Co de Phone Number [facility] [address] [place] [address] * CARDIAC EKG ORDER (12/14/2024 10:07 PM SAND SLINGER OPERATOR) Narrative 12/14/2024 10:07 PM SAND SLINGER OPERATOR Ordered by an unspecified provider. Scanned Document CARDIAC SERVICES ORD ERABLES * CULTURE BLOOD (12/14/2024 10:53 AM SAND SLINGER OPERATOR) Only the most recent of4 resultswithin the time period is included. Pathologist [facility] Culture No growth day 5 ZAHIRA 12/19/2024 1:31 PM SAND SLINGER OPERATOR [facility] Blood PERIPHERAL BLOOD / Unknown Venipuncture / Unknown 12/14/2024 10:53 AM SAND SLINGER OPERATOR 12/14/2024 11:04 AM SAND SLINGER OPERATOR Nasir Jaramillo TONE ARTIST APPRENTICE-CENTER MACHINE OPERATOR LAB - MICROB IOLOGY ORDERABLES Performing Organization Address City/[facility]/ZIP Co de Phone Number [facility] [address] [place] [address] [phone] * (ABNORMAL) BCID PANEL (12/12/2024 5:18 PM SAND SLINGER OPERATOR) Streptococcus species Detected (A) Not detected 12/13/2024 9:28 AM SAND SLINGER OPERATOR [facility] Comment: Streptococcus species (not S. agalactiae, S. pneumoniae, or S. pyogenes). Blood PERIPHERAL BLOOD / Unknown Venipuncture / Unknown 12/12/2024 5:18 PM SAND SLINGER OPERATOR 12/12/2024 5:35 PM SAND SLINGER OPERATOR Narrative [facility] - 12/13/2024 9:28 AM SAND SLINGER OPERATOR Blood Culture ID Panel performed by [employer] multiplex PCR. The Test panel includes: Gram [...] and MREJ (methicillin-resistance - MRSA), NDM ([place] tnnhiax-btei-[id number]), OXA-48-like (oxacillinase beta-lactamase),Elaina/B (vancomycin-resistance), VIM (Charleen Intergrom-Encoded Metallo beta-lactamase). Joshua Powell MD LAB - MICROBIOLOGY O RDERAMILADY [facility] [address] [facility] [place], [place] [id number] [place] [address] * VAS Right Venous Duplex Ue (12/11/2024 1:30 PM SAND SLINGER OPERATOR) Anatomical Region Laterality Modality Upper Extremity Ultrasound 12/11/2024 1:11 PM SAND SLINGER OPERATOR Narrative Procedure Note Deshaun Pelaez MD - 12/14/2024 [facility] [id number] [place] [id number] Upper Extremity Venous Ultrasound Report Pat.Name: ROSEMARIE GILLESPIE Pat.ID: [id number] .Date: 12/11/2024 Exam Time: 1:11:00 PM Study Type:UE Venous Age: 7 1975,49Y Sex: FEMALE Sonogrphr: Shaquille Leal RVT Pat. Stat.:Inpatient Room: [facility] ICD - 9: I48.91, S32.028A CPT - 4: 47551 Reason for Study: Atrial fibrillation with rapid ventricular response, Other closed fracture of second lumbar vertebra, initial encounter Procedures: Upper Extremity Venous - Right Race: [facility] Visit ID: [id number] ++++++++++++++++++++++++++++++++++++ SUMMARY: ++++++++++++++++++++++++++++++++++++ There is no evidence [...] LES * EKG 12-LEAD (12/10/2024 12:13 PM SAND SLINGER OPERATOR) Only the most recent of5 resultswithin the time period is included. Ventricular Rate 68 BPM [facility] Atrial Rate 68 BPM [facility] P-R Interval 150 ms [facility] QRS Duration ms 96 ms [facility] Q-T Interval ms 422 ms [facility] QTC Calculation (Bezet) 448 ms [facility] Calculated P Levant 12 degrees [facility] Calculated R Levant 64 degrees [facility] Calculated T Levant 70 degrees [facility] Interpretation EKG Normal sinus rhythm Normal ECG When compared with ECG of 10-DEC-2024 08:44, No significant change was found Confirmed by CAROLINE DHILLON MD ([id number]) on 12/14/2024 10:31:26 AM [facility] 12/10/2024 12:1 3 PM SAND SLINGER OPERATOR 12/14/2024 10:31 AM SAND SLINGER OPERATOR Lennie Cabezas MD ECG ORDERABLES [facility] * ECHO EDIS COMPLETE (12/10/2024 10:25 AM SAND SLINGER OPERATOR) TR pk estrellita 216.798 cm/s [facility] CV FUJ I PACS Anatomical Region Laterality Modality Ultrasound 12/10/2024 7:59 AM SAND SLINGER OPERATOR Narrative 12/10/2024 9:53 PM SAND SLINGER OPERATOR Summary * Left ventricular systolic function is [...] 7:59 AM Patient Status: I/P [facility] Primary Location: [facility] EStudy Info Exam Type: ECHO EDIS COMPLETE Indications I48.91 - Atrial fibrillation with rapid ventricular response (HCC) * A complete transesophageal echo was performed using 2D, color Doppler, and spectral Doppler. Staff Referring Physician: Caroline Dhillon Ordering Provider: Caroline Dhillon Attending Physician: Caroline Dhillon Purchase Price Analyst: Jeanne Foster Medications * Propofol and Fentanyl [...] in satisfactory condition. Probe passed by the table lever operator without difficulty. Left Ventricle The left [...] (2D) 1.4 cm/m2 Report Signatures Finalized by Caroline Dhillon on 12/10/2024 09:53 PM Procedure Note Caroline Dhillon MD - 12/10/2024 Summary * Left ventricular [...] 7:59 AM Patient Status: I/P [facility] Primary Location: [facility] EStudy Info Exam Type: ECHO EDIS COMPLETE Indications I48.91 - Atrial fibrillation with rapid ventricular response (HCC) * A complete transesophageal echo was performed using 2D, color Doppler,and spectral Doppler. Staff Referring Physician: Caroline Dhillon Ordering Provider: Caroline Dhillon Attending Physician: Caroline Dhillon Purchase Price Analyst: Jeanne Foster Medications * Propofol and Fentanyl [...] area in satisfactorycondition. Probe passed by the table lever operator without difficulty. Left Ventricle The left [...] (2D) 1.4 cm/m2 Report Signatures Finalized by Caroline Dhillon on 12/10/2024 09:53 PM Caroline Dhillon MD ECHO CUPID * CCL INTRA PROCEDURE EDIS, CCL CARDIOVERSION (12/10/2024 8:41 AM SAND SLINGER OPERATOR) Anatomical Region Laterality Modality X-Ray Angiograph y Narrative 12/11/2024 6:20 PM SAND SLINGER OPERATOR .Cardioversion: Consent for operation or procedure: Risks [...] patient tolerated the procedure well without complications. Caroline Dhillon MD 12/10/24 Procedure Details Estimated Blood Loss: NA mL Caroline Dhillon MD CV CARDIAC CATH C UPID PROCS * XR Lumbar Spine 2 or 3Vw (12/08/2024 5:24 PM SAND SLINGER OPERATOR) Anatomical Region Laterality Modality Spine Computed Radiogr aphy 12/08/2024 9:23 PM SAND SLINGER OPERATOR Narrative 12/08/2024 9:25 PM SAND SLINGER OPERATOR EXAM: XR LUMBAR SPINE 2 OR 3VW [...] RDERABLES * HEMOGLOBIN A1C (12/08/2024 3:49 AM SAND SLINGER OPERATOR) Hemoglobin A1c 5.5 <5.7 % 12/08/2024 4:43 AM SAND SLINGER OPERATOR [facility] Estimated Average Glucose 111 mg/dL 12/08/2024 4:43 AM SAND SLINGER OPERATOR [facility] Blood BLOOD SPECIMEN / Unknown Venipuncture / Unknown 12/08/2024 3:49 AM SAND SLINGER OPERATOR 12/08/2024 4:11 AM SAND SLINGER OPERATOR [facility] - 12/08/2024 4:43 AM SAND SLINGER OPERATOR HbA1c Interpretation: Normal: < 5.7% Pre-diabetes: 5.7-6.4% [...] Gardner MD LAB - CHEMISTRY [place] [facility] Organization Address City/State/ZIP Co de Phone Number [facility] [address] [place] [address] * MAGNESIUM BLOOD (12/08/2024 3:49 AM SAND SLINGER OPERATOR) Only the most recent of2 resultswithin the time period is included. Pathologist [facility] Magnesium 2.4 1.6 - 2.6 mg/dL 12/08/2024 4:58 AM [facility] Blood BLOOD SPECIMEN / Unknown Venipuncture / Unknown 12/08/2024 3:49 AM SAND SLINGER OPERATOR 12/08/2024 4:11 AM SAND SLINGER OPERATOR Kiel Gardner MD LAB - CHEMISTRY [place] Performing Organization Address [facility] de Phone Number [facility] [address] [place] [phone] * (ABNORMAL) TROPONIN-I HIGH SENSITIVE (12/07/2024 11:13 AM SAND SLINGER OPERATOR) Troponin I High Sensitive 16(H) <=14 ng/L 12/07/2024 11:49 AM SAND SLINGER OPERATOR [facility] Blood BLOOD SPECIMEN / Unknown Venipuncture / Unknown 12/07/2024 11:13 AM SAND SLINGER OPERATOR 12/07/2024 11:22 AM SAND SLINGER OPERATOR Kiel Gardner MD LAB - CHEMISTRY [place] Performing Organization Address [facility] de Phone Number [facility] [address] [place] [phone] * (ABNORMAL) B-TYPE NATRIURETIC PEPTIDE (12/07/2024 11:13 AM SAND SLINGER OPERATOR) BNP 191(H) <=100 pg/mL 12/07/2024 11:53 AM SAND SLINGER OPERATOR [facility] Blood BLOOD SPECIMEN / Unknown Venipuncture / Unknown 12/07/2024 11:13 AM SAND SLINGER OPERATOR 12/07/2024 11:22 AM SAND SLINGER OPERATOR Kiel Gardner MD LAB - CHEMISTRY [place] Performing Organization Address [facility] de Phone Number [facility] [address] [place] [phone] * TSH (12/07/2024 11:13 AM SAND SLINGER OPERATOR) Pathologist [facility] TSH 1.6472 0.35 - 4.94 uIU/mL 12/07/2024 12:12 PM SAND SLINGER OPERATOR [facility] Blood BLOOD SPECIMEN / Unknown Venipuncture / Unknown 12/07/2024 11:13 AM SAND SLINGER OPERATOR 12/07/2024 11:22 AM SAND SLINGER OPERATOR Kiel Gardner MD LAB - CHEMISTRY [place] [facility] Organization Address City/State/ZIP Co de Phone Number [facility] [address] [place] [address] Care Teams Agriculture Department Chair Relationship Specialty Start Date End Date Joseph Shelton MD [address] [place] [address] PCP - General Family Medicine 12/07/24
--- OUTSIDE RECORDS SUMMARY | 2024-12-30 14:37 | XMS_ITS | Referral Summary ---
Author Organization [facility] Address [address] [place] [address] Care Team Providers Care Head Of Product Name Role Phone Joseph Shelton MD Primary Care Provider [phone] [facility],non-owned Affiliates and Associated Physician Practices is amultiple site organization consisting of ambulatory clinics and hospital sitesin [place], [place] and [place]. This disclosure is being madepursuant to the Care Everywhere program and may not contain all information available regarding this patient. Last updated 18.[facility] Encounters Date Type Department Care Team Description 12/07/2024 7:51 AM LABEL STAMPER - 12/17/2024 4:40 PM LABEL STAMPER Hospital Encounter [facility] [address] [place] [id number] Ceasar Markham MD Jones, Olujoke, MD Kaswan, Nitika, MD Yu, Yang, MD Chilakala, Aruna, MD Hospitalist Discharge Disposition: Home Health Care Svc 12/10/2024 8:20 AM LABEL STAMPER Anesthesia Event [facility] - Cardiac Middleware Architect [address] [place] [phone] Felipe Cordero MD Findley, Hanna J 12/10/2024 8:30 AM LABEL STAMPER - 12/10/2024 10:00 AM LABEL STAMPER Surgery [facility] - Cardiac Middleware Architect [address] [place] [id number] Caroline Plaza MD Intra-procedure EDIS from Last 3 Months Allergies Active Allergy Reactions Criticality Noted Date [...] mouth 2 times daily Active HYDROcodone-acet aminophen ([place]) 5-325 MG tabletIndication s:Other closed fracture of second lumbar vertebra, initial encounter ([facility]) Take 1 (one) tablet by mouth every [...] diff and CMP. Please fax results to [phone]. Follow up with Dr. Gilmore in 1-2 weeks/PRN. Please call [phone] for scheduling. Discontinue PICC after last dose [...] Comments Blood Pressure 124/74 12/17/2024 11:56 AM LABEL STAMPER Pulse 60 12/17/2024 11:56 AM LABEL STAMPER Temperature 36.6 C (97.8 F) 12/17/2024 11:56 AM LABEL STAMPER Respiratory Rate 17 12/17/2024 11:56 AM LABEL STAMPER Oxygen Saturation 94% 12/17/2024 11:56 AM LABEL STAMPER Inhaled Oxygen Concentration - - Weight 101.6 kg (224 lb) 12/07/2024 2:40 PM LABEL STAMPER Height 162.6 cm (5' 4 ) 12/07/2024 2:40 PM LABEL STAMPER Body Mass Index 38.45 12/07/2024 2:40 PM LABEL STAMPER Functional Status Functional Status Response Date of Assess ment Is person deaf or have serious hearing difficult y? No 12/08/2024 Is person blind or have serious difficulty seein g? No 12/08/2024 Does person have serious dif ficulty walking/climbing stairs? No 12/08/2024 Does person have difficulty dressing/bathing? No 12/08/2024 Does person have difficulty doing errands alone? Yes 12/08/2024 Cognitive Status Response Date of Assessm ent Does person have difficulty concentrating/remembering/making decisions? No 12/08/2024 Plan of Treatment Not on file Procedures Procedure Name Priority Date/Time Associated Diagnosis Comments CARDIAC RHYTHM STRIP ORDER 12/18/2024 10:49 PM LABEL STAMPER GLUCOSE - POINT OF CARE Routine 12/17/2024 11:55 AM LABEL STAMPER GLUCOSE - POINT OF CARE Routine 12/17/2024 6:43 AM LABEL STAMPER COMPREHENSIVE METABOLIC PANEL AM Draw 12/17/2024 5:19 AM LABEL STAMPER CBC W AUTO DIFFERENTIAL AM Draw 12/17/2024 5:19 AM LABEL STAMPER GLUCOSE - POINT OF CARE Routine 12/16/2024 7:56 PM LABEL STAMPER GLUCOSE - POINT OF CARE Routine 12/16/2024 5:01 PM LABEL STAMPER ECHO LIMITED OR FOLLOWUP Routine 12/16/2024 11:52 AM LABEL STAMPER Atrial fibrillation with rapid ventricular response (HCC) GLUCOSE - POINT OF CARE Routine 12/16/2024 11:47 AM LABEL STAMPER GLUCOSE - POINT OF CARE Routine 12/16/2024 6:35 AM LABEL STAMPER BASIC METABOLIC PANEL (CALCIUM TOTAL) AM Draw 12/16/2024 4:53 AM LABEL STAMPER GLUCOSE - POINT OF CARE Routine 12/15/2024 9:42 PM LABEL STAMPER GLUCOSE - POINT OF CARE Routine 12/15/2024 4:21 PM LABEL STAMPER GLUCOSE - POINT OF CARE Routine 12/15/2024 11:01 AM LABEL STAMPER GLUCOSE - POINT OF CARE Routine 12/15/2024 6:37 AM LABEL STAMPER BASIC METABOLIC PANEL (CALCIUM TOTAL) AM Draw 12/15/2024 4:14 AM LABEL STAMPER CBC W AUTO DIFFERENTIAL AM Draw 12/15/2024 4:14 AM LABEL STAMPER HOME CPAP/BIPAP FOR HOSP USE: NOCTURNAL 02 Routine 12/15/2024 12:00 AM LABEL STAMPER CARDIAC EKG ORDER 12/14/2024 10:07 PM LABEL STAMPER GLUCOSE - POINT OF CARE Routine 12/14/2024 4:23 PM LABEL STAMPER GLUCOSE - POINT OF CARE Routine 12/14/2024 10:58 AM LABEL STAMPER CULTURE BLOOD Timed 12/14/2024 10:53 AM LABEL STAMPER CULTURE BLOOD Timed 12/14/2024 10:48 AM LABEL STAMPER GLUCOSE - POINT OF CARE Routine 12/14/2024 6:20 AM LABEL STAMPER BASIC METABOLIC PANEL (CALCIUM TOTAL) AM Draw 12/14/2024 4:49 AM LABEL STAMPER CBC W AUTO DIFFERENTIAL AM Draw 12/14/2024 4:49 AM LABEL STAMPER HOME CPAP/BIPAP FOR HOSP USE: NOCTURNAL 02 Routine 12/14/2024 12:00 AM LABEL STAMPER GLUCOSE - POINT OF CARE Routine 12/13/2024 8:46 PM LABEL STAMPER GLUCOSE - POINT OF CARE Routine 12/13/2024 4:44 PM LABEL STAMPER GLUCOSE - POINT OF CARE Routine 12/13/2024 11:41 AM LABEL STAMPER BASIC METABOLIC PANEL (CALCIUM TOTAL) LORI 12/13/2024 10:11 AM LABEL STAMPER CBC W AUTO DIFFERENTIAL LORI 12/13/2024 10:11 AM LABEL STAMPER HOME CPAP/BIPAP FOR HOSP USE: NOCTURNAL 02 Routine 12/13/2024 12:00 AM LABEL STAMPER CULTURE BLOOD Timed 12/12/2024 5:26 PM LABEL STAMPER BCID PANEL Routine 12/12/2024 5:18 PM LABEL STAMPER CULTURE BLOOD Timed 12/12/2024 5:18 PM LABEL STAMPER GLUCOSE - POINT OF CARE Routine 12/12/2024 11:44 AM LABEL STAMPER HOME CPAP/BIPAP FOR HOSP USE: NOCTURNAL 02 Routine 12/12/2024 7:43 AM LABEL STAMPER HOME CPAP/BIPAP FOR HOSP USE: NOCTURNAL 02 Routine 12/12/2024 7:43 AM LABEL STAMPER VAS RIGHT VENOUS DUPLEX UE PENDING DISCHARGE 12/11/2024 1:30 PM LABEL STAMPER Atrial fibrillation with rapid ventricular response (HCC) Other closed fracture of second lumbar vertebra, initial encounter (HCC) GLUCOSE - POINT OF CARE Routine 12/11/2024 12:40 PM LABEL STAMPER GLUCOSE - POINT OF CARE Routine 12/11/2024 12:31 PM LABEL STAMPER GLUCOSE - POINT OF CARE Routine 12/11/2024 7:38 AM LABEL STAMPER GLUCOSE - POINT OF CARE Routine 12/10/2024 8:32 PM LABEL STAMPER GLUCOSE - POINT OF CARE Routine 12/10/2024 6:03 PM LABEL STAMPER GLUCOSE - POINT OF CARE Routine 12/10/2024 12:20 PM LABEL STAMPER EKG 12-LEAD Routine 12/10/2024 12:13 PM LABEL STAMPER Atrial fibrillation with rapid ventricular response (HCC) ECHO EDIS COMPLETE Routine 12/10/2024 10:25 AM LABEL STAMPER Atrial fibrillation with rapid ventricular response (HCC) EKG 12-LEAD Routine 12/10/2024 8:44 AM LABEL STAMPER Atrial fibrillation with rapid ventricular response (HCC) CCL CARDIOVERSION Routine 12/10/2024 8:41 AM LABEL STAMPER Atrial fibrillation with rapid ventricular response (HCC) CCL INTRA PROCEDURE EDIS Routine 12/10/2024 8:41 AM LABEL STAMPER Atrial fibrillation with rapid ventricular response (HCC) GLUCOSE - POINT OF CARE Routine 12/10/2024 7:47 AM LABEL STAMPER EKG 12-LEAD Routine 12/09/2024 10:47 PM LABEL STAMPER Atrial fibrillation with rapid ventricular response (HCC) GLUCOSE - POINT OF CARE Routine 12/09/2024 9:44 PM LABEL STAMPER EKG 12-LEAD Routine 12/09/2024 1:31 PM LABEL STAMPER Atrial fibrillation with rapid ventricular response (HCC) GLUCOSE - POINT OF CARE Routine 12/09/2024 11:19 AM LABEL STAMPER GLUCOSE - POINT OF CARE Routine 12/09/2024 7:57 AM LABEL STAMPER GLUCOSE - POINT OF CARE Routine 12/09/2024 6:26 AM LABEL STAMPER ECHO COMPLETE Routine 12/09/2024 12:58 AM LABEL STAMPER Atrial fibrillation with rapid ventricular response (HCC) GLUCOSE - POINT OF CARE Routine 12/08/2024 8:27 PM LABEL STAMPER XR LUMBAR SPINE 2 OR 3VW Routine 12/08/2024 5:24 PM LABEL STAMPER Other closed fracture of second lumbar vertebra, initial encounter (HCC) GLUCOSE - POINT OF CARE Routine 12/08/2024 5:03 PM LABEL STAMPER GLUCOSE - POINT OF CARE Routine 12/08/2024 1:06 PM LABEL STAMPER GLUCOSE - POINT OF CARE Routine 12/08/2024 12:12 PM LABEL STAMPER GLUCOSE - POINT OF CARE Routine 12/08/2024 11:52 AM LABEL STAMPER GLUCOSE - POINT OF CARE Routine 12/08/2024 11:45 AM LABEL STAMPER EKG 12-LEAD Routine 12/08/2024 11:32 AM LABEL STAMPER Atrial fibrillation with rapid ventricular response (HCC) GLUCOSE - POINT OF CARE Routine 12/08/2024 7:47 AM LABEL STAMPER MAGNESIUM BLOOD Routine 12/08/2024 3:49 AM LABEL STAMPER BASIC METABOLIC PANEL (CALCIUM TOTAL) AM Draw 12/08/2024 3:49 AM LABEL STAMPER HEMOGLOBIN A1C Routine 12/08/2024 3:49 AM LABEL STAMPER GLUCOSE - POINT OF CARE Routine 12/07/2024 8:17 PM LABEL STAMPER GLUCOSE - POINT OF CARE Routine 12/07/2024 5:25 PM LABEL STAMPER TSH Routine 12/07/2024 11:13 AM LABEL STAMPER MAGNESIUM BLOOD STAT 12/07/2024 11:13 AM LABEL STAMPER TROPONIN-I HIGH SENSITIVE STAT 12/07/2024 11:13 AM LABEL STAMPER COMPREHENSIVE METABOLIC PANEL STAT 12/07/2024 11:13 AM LABEL STAMPER CBC W AUTO DIFFERENTIAL STAT 12/07/2024 11:13 AM LABEL STAMPER B-TYPE NATRIURETIC PEPTIDE STAT 12/07/2024 11:13 AM LABEL STAMPER from Last 3 Months Results * CARDIAC RHYTHM STRIP ORDER (12/18/2024 10:49 PM LABEL STAMPER) Narrative 12/18/2024 10:49 PM LABEL STAMPER Ordered by an unspecified provider. Scanned Document CARDIAC SERVICES ORD ERABLES * GLUCOSE - POINT OF CARE (12/17/2024 11:55 AM LABEL STAMPER) Only the most recent of37 resultswithin the time period is included. [facility] Glucose WB/POC 99 70 - 99 mg/dL 12/17/2024 12:36 PM LABEL STAMPER [facility] Specimen Type Cap Fingerstick 2024 12:36 PM LABEL STAMPER [facility] Blood BLOOD SPECIMEN / Unknown 12/17/2024 11:55 AM LABEL STAMPER 12/17/2024 12:36 PM LABEL STAMPER Teri Arora MD LAB - POINT OF CARE ORDERABLES Performing Organization Address City/State/[facility] Co de Phone Number [facility] [address] [place] [address] * (ABNORMAL) CBC W AUTO DIFFERENTIAL (12/17/2024 5:19 AM LABEL STAMPER) Only the most recent of5 resultswithin the time period is included. [facility] WBC 4.7 4.0 - 10.7 x10E9/L 12/17/2024 5:57 AM LABEL STAMPER [facility] RBC Count 3.47(L) 3.90 - 5.20 x10E12/L 12/17/2024 5:57 AM LABEL STAMPER [facility] Hemoglobin 10.9(L) 11.9 - 15.8 g/dL 12/17/2024 5:57 AM LABEL STAMPER [facility] Hematocrit 34.0(L) 34.8 - 46.1 % 12/17/2024 5:57 AM [facility] MCV 98.0 80.0 - 98.0 fL 12/17/2024 5:57 AM LABEL STAMPER [facility] MCH 31.4 26.7 - 33.6 pg 12/17/2024 5:57 AM LABEL STAMPER [facility] MCHC 32.1 31.7 - 36.3 g/dL 12/17/2024 5:57 AM [facility] RDW-CV 14.2 11.3 - 14.8 % 12/17/2024 5:57 AM [facility] Platelet Count 179 150 - 420 x10E9/L 12/17/2024 5:57 AM [facility] MPV 10.7 7.8 - 11.4 fL 12/17/2024 5:57 AM [facility] Neutrophil % 56.8 41.0 - 74.0 % 12/17/2024 5:57 AM [facility] Lymphocyte % 29.3 17.0 - 47.0 % 12/17/2024 5:57 AM [facility] Monocyte % 10.7 3.0 - 11.0 % 12/17/2024 5:57 AM [facility] Eosinophil % 2.4 0.0 - 7.0 % 12/17/2024 5:57 AM [facility] Basophil % 0.6 0.0 - 1.6 % 12/17/2024 5:57 AM [facility] Immature Granulocytes % 0.2 0.0 - 1.0 % 12/17/2024 5:57 AM [facility] Neutrophil Absolute 2.66 1.60 - 7.50 x10E9/L 12/17/2024 5:57 AM [facility] Lymphocyte Absolute 1.37 1.00 - 4.40 x10E9/L 12/17/2024 5:57 AM [facility] Monocyte Absolute 0.50 0.15 - 1.00 x10E9/L 12/17/2024 5:57 AM [facility] Eosinophil Absolute 0.11 0.00 - 0.60 x10E9/L 12/17/2024 5:57 AM [facility] Basophil Absolute 0.03 0.00 - 0.13 x10E9/L 12/17/2024 5:57 AM [facility] Blood BLOOD SPECIMEN / Unknown Line Draw / Unknown 12/17/2024 5:19 AM LABEL STAMPER 12/17/2024 5:26 AM [facility] Nasir Jaramillo SUPERVISOR SHEET MANUFACTURING-FISH SMOKER LAB - HEMATO LOGY ORDERABLES [facility] [address] [place] [address] * (ABNORMAL) COMPREHENSIVE METABOLIC PANEL (12/17/2024 5:19 AM [facility]) Only the most recent of2 resultswithin the time period is included. Pathologist [facility] Glucose 93 70 - 99 mg/dL 12/17/2024 5:49 AM [facility] Sodium 142 136 - 145 mmol/L 12/17/2024 5:49 AM [facility] Potassium 4.4 3.5 - 5.1 mmol/L 12/17/2024 5:49 AM [facility] Chloride 107 98 - 107 mmol/L 12/17/2024 5:49 AM [facility] CO2 28 22 - 29 mmol/L 12/17/2024 5:49 AM [facility] Calcium 8.6 8.4 - 10.4 mg/dL 12/17/2024 5:49 AM [facility] Anion Gap 7 6 - 16 mmol/L 12/17/2024 5:49 AM [facility] BUN 17 7 - 26 mg/dL 12/17/2024 5:49 AM [facility] Creatinine 0.58 0.57 - 1.11 mg/dL 12/17/2024 5:49 AM [facility] Alkaline Phosphatase 79 40 - 150 U/L 12/17/2024 5:49 AM [facility] ALT 47 0 - 55 U/L 12/17/2024 5:49 AM [facility] AST 25 5 - 34 U/L 12/17/2024 5:49 AM [facility] Protein Total 5.4(L) 6.4 - 8.3 gm/dL 12/17/2024 5:49 AM [facility] Albumin 2.6(L) 3.4 - 5.0 gm/dL 12/17/2024 5:49 AM [facility] Bilirubin Total 0.2 0.2 - 1.2 mg/dL 12/17/2024 5:49 AM [facility] eGFR by CKD-EPI >90 >=90 mL/min/1.7 3 m2 12/17/2024 5:49 AM [facility] Blood BLOOD SPECIMEN / Unknown Line Draw / Unknown 12/17/2024 5:19 AM LABEL STAMPER 12/17/2024 5:26 AM LABEL STAMPER Benmai Self Ella SUPERVISOR SHEET MANUFACTURING-FISH SMOKER LAB - CHEMIS TRY ORDERABLES [facility] [address] [place] [address] * ECHO LIMITED OR FOLLOWUP (12/16/2024 11:52 AM LABEL STAMPER) Only the most recent of2 resultswithin the time period is included. Myocardial strain charge 2 unitless [facility] CV KangaI PACS Anatomical Region Laterality Modality Ultrasound 12/16/2024 9:47 AM LABEL STAMPER Narrative 12/16/2024 6:13 PM LABEL STAMPER Summary * The left ventricle is normal [...] 9:47 AM Patient Status: I/P Study Site: [facility] Primary Location: [facility] EStudy Info Technical Quality: Adequate Exam Type: ECHO LIMITED OR FOLLOWUP Indications I48.91 - Atrial fibrillation with rapid ventricular response (HCC) - Bacteremia Procedure(s) * A limited 2D and M-Mode transthoracic echocardiogram was performed. Reason for Technically Difficult Study: body habitus, patient supine Staff Referring Physician: Michelle Purdy Ordering Provider: Michelle Purdy Attending Physician: Michelle Purdy Assignment Editor: Katy Marin [facility] Left Ventricle The left ventricle is normal [...] 9:47 AM Patient Status: I/P Study Site: [facility] Primary Location: [facility] EStudy Info Technical Quality: Adequate Exam Type: ECHO LIMITED OR FOLLOWUP Indications I48.91 - Atrial fibrillation with rapid ventricular response (HCC) - Bacteremia Procedure(s) * A limited 2D and M-Mode transthoracic echocardiogram was performed. Reason for Technically Difficult Study: body habitus, patientsupine Staff Referring Physician: Michelle Purdy Ordering Provider: Michelle Purdy Attending Physician: Michelle Purdy Assignment Editor: Katy Marin [facility] Left Ventricle The left ventricle is normal [...] METABOLIC PANEL (CALCIUM TOTAL) (12/16/2024 4:53 AM [facility]) Only the most recent of5 resultswithin the time period is included. Glucose 95 70 - 99 mg/dL 12/16/2024 5:46 AM [facility] Sodium 141 136 - 145 mmol/L 12/16/2024 5:46 AM [facility] Potassium 4.5 3.5 - 5.1 mmol/L 12/16/2024 5:46 AM [facility] Chloride 108(H) 98 - 107 mmol/L 12/16/2024 5:46 AM [facility] CO2 28 22 - 29 mmol/L 12/16/2024 5:46 AM [facility] Calcium 8.6 8.4 - 10.4 mg/dL 12/16/2024 5:46 AM [facility] Anion Gap 5(L) 6 - 16 mmol/L 12/16/2024 5:46 AM [facility] BUN 12 7 - 26 mg/dL 12/16/2024 5:46 AM [facility] Creatinine 0.59 0.57 - 1.11 mg/dL 12/16/2024 5:46 AM [facility] eGFR by CKD-EPI >90 >=90 mL/min/1.7 3 m2 12/16/2024 5:46 AM [facility] Blood BLOOD SPECIMEN / Unknown Line Draw / Unknown 12/16/2024 4:53 AM LABEL STAMPER 12/16/2024 5:18 AM LABEL STAMPER Teri Arora MD LAB - CHEMISTRY ORDE KIMBERLY [facility] [address] [place] [address] * CARDIAC EKG ORDER (12/14/2024 10:07 PM LABEL STAMPER) Narrative 12/14/2024 10:07 PM LABEL STAMPER Ordered by an unspecified provider. Scanned Document CARDIAC SERVICES ORD ERABLES * CULTURE BLOOD (12/14/2024 10:53 AM LABEL STAMPER) Only the most recent of4 resultswithin the time period is included. Pathologist [facility] Culture No growth day 5 ZAHIRA 12/19/2024 1:31 PM LABEL STAMPER [facility] Blood PERIPHERAL BLOOD / Unknown Venipuncture / Unknown 12/14/2024 10:53 AM LABEL STAMPER 12/14/2024 11:04 AM LABEL STAMPER Nasir Jaramillo SUPERVISOR SHEET MANUFACTURING-FISH SMOKER LAB - MICROB IOLOGY ORDERABLES Performing Organization Address City/[facility]/ZIP Co de Phone Number [facility] [address] [phone] * (ABNORMAL) BCID PANEL (12/12/2024 5:18 PM LABEL STAMPER) Streptococcus species Detected (A) Not detected 12/13/2024 9:28 AM LABEL STAMPER [facility] Comment: Streptococcus species (not S. agalactiae, S. pneumoniae, or S. pyogenes). Blood PERIPHERAL BLOOD / Unknown Venipuncture / Unknown 12/12/2024 5:18 PM LABEL STAMPER 12/12/2024 5:35 PM LABEL STAMPER Narrative [facility] - 12/13/2024 9:28 AM LABEL STAMPER Blood Culture ID Panel performed by [employer] multiplex PCR. The Test panel includes: Gram [...] and MREJ (methicillin-resistance - MRSA), NDM ([place] tjgykdz-gchd-roxacxfav), OXA-48-like (oxacillinase beta-lactamase),Elaina/B (vancomycin-resistance), VIM ([place] Intergrom-Encoded [place] beta-lactamase). Joshua Powell MD LAB - MICROBIOLOGY O RDERABLES [facility] [address] [place] [address], [facility] [phone] * VAS Right Venous Duplex Ue (12/11/2024 1:30 PM LABEL STAMPER) Anatomical Region Laterality Modality Upper Extremity Ultrasound 12/11/2024 1:11 PM LABEL STAMPER Narrative Procedure Note Deshaun Pelaez MD - 12/14/2024 [facility] [address] [place] [address] Upper Extremity Venous Ultrasound Report Pat.Name: ROSEMARIE GILLESPIE Pat.ID: [id number] St.Date: 12/11/2024 Exam Time: 1:11:00 PM Study Type:UE Venous Age: 7 1975,49Y Sex: FEMALE Sonogrphr: Shaquille BhatLeal, RVT Pat. Stat.:Inpatient Room: 409 ICD - 9: I48.91, S32.028A CPT - 4: 97038 Reason for Study: Atrial fibrillation with rapid ventricular response, Other closed fracture of second lumbar vertebra, initial encounter Procedures: Upper Extremity Venous - Right Race: [facility] Visit ID: [id number] ++++++++++++++++++++++++++++++++++++ SUMMARY: ++++++++++++++++++++++++++++++++++++ There is no evidence [...] LES * EKG 12-LEAD (12/10/2024 12:13 PM LABEL STAMPER) Only the most recent of5 resultswithin the time period is included. Ventricular Rate 68 BPM [facility] Atrial Rate 68 BPM [facility] P-R Interval 150 ms [facility] QRS Duration ms 96 ms [facility] Q-T Interval ms 422 ms [facility] QTC Calculation (Bezet) 448 ms [facility] Calculated P Forrest 12 degrees [facility] Calculated R Forrest 64 degrees [facility] Calculated T Forrest 70 degrees [facility] Interpretation EKG Normal sinus rhythm Normal ECG When compared with ECG of 10-DEC-2024 08:44, No significant change was found Confirmed by JACQUIE GONGORA, CAROLINE SANTOS ([id number]) on 12/14/2024 10:31:26 AM [facility] 12/10/2024 12:1 3 PM LABEL STAMPER 12/14/2024 10:31 AM LABEL STAMPER Lennie Cabezas MD ECG ORDERABLES [facility] * ECHO EDIS COMPLETE (12/10/2024 10:25 AM LABEL STAMPER) TR pk estrellita 216.798 cm/s [facility] CV FUJ I PACS Anatomical Region Laterality Modality Ultrasound 12/10/2024 7:59 AM LABEL STAMPER Narrative 12/10/2024 9:53 PM LABEL STAMPER Summary * Left ventricular systolic function is [...] 7:59 AM Patient Status: I/P Study Site: [facility] Primary Location: [facility] EStudy Info Exam Type: ECHO EDIS COMPLETE Indications I48.91 - Atrial fibrillation with rapid ventricular response (HCC) * A complete transesophageal echo was performed using 2D, color Doppler, and spectral Doppler. Staff Referring Physician: Caroline Plaza Ordering Provider: Caroline Plaza Attending Physician: Caroline Plaza Assignment Editor: Jeanne Foster Medications * Propofol and Fentanyl [...] in satisfactory condition. Probe passed by the credentials specialist without difficulty. Left Ventricle The left ventricle [...] 1.4 cm/m2 Report Signatures Finalized by Caroline Plaza on 12/10/2024 09:53 PM Procedure Note Caroline Plaza MD - 12/10/2024 Summary * Left [...] 7:59 AM Patient Status: I/P Study Site: [facility] Primary Location: [facility] EStudy Info Exam Type: ECHO EDIS COMPLETE Indications I48.91 - Atrial fibrillation with rapid ventricular response (HCC) * A complete transesophageal echo was performed using 2D, color Doppler,and spectral Doppler. Staff Referring Physician: Caroline Plaza Ordering Provider: Caroline Plaza Attending Physician: Caroline Plaza Assignment Editor: Jeanne Foster Medications * Propofol and Fentanyl [...] area in satisfactorycondition. Probe passed by the credentials specialist without difficulty. Left Ventricle The left ventricle [...] 1.4 cm/m2 Report Signatures Finalized by Caroline Plaza on 12/10/2024 09:53 PM Caroline Plaza MD ECHO CUPID * CCL INTRA PROCEDURE EDIS, CCL CARDIOVERSION (12/10/2024 8:41 AM LABEL STAMPER) Anatomical Region Laterality Modality X-Ray Angiograph y Narrative 12/11/2024 6:20 PM LABEL STAMPER .Cardioversion: Consent for operation or procedure: Risks [...] tolerated the procedure well without complications. Caroline Plaza MD 12/10/24 Procedure Details Estimated Blood Loss: NA mL Caroline Plaza MD CV CARDIAC CATH C UPID PROCS * XR Lumbar Spine 2 or 3Vw (12/08/2024 5:24 PM LABEL STAMPER) Anatomical Region Laterality Modality Spine Computed Radiogr aphy 12/08/2024 9:23 PM LABEL STAMPER Narrative 12/08/2024 9:25 PM LABEL STAMPER EXAM: XR LUMBAR SPINE 2 OR 3VW [...] RDERABLES * HEMOGLOBIN A1C (12/08/2024 3:49 AM LABEL STAMPER) Hemoglobin A1c 5.5 <5.7 % 12/08/2024 4:43 AM LABEL STAMPER [facility] Estimated Average Glucose 111 mg/dL 12/08/2024 4:43 AM LABEL STAMPER [facility] Blood BLOOD SPECIMEN / Unknown Venipuncture / Unknown 12/08/2024 3:49 AM LABEL STAMPER 12/08/2024 4:11 AM LABEL STAMPER Narrative [facility] - 12/08/2024 4:43 AM LABEL STAMPER HbA1c Interpretation: Normal: < 5.7% Pre-diabetes: 5.7-6.4% [...] (HbF) exceeds 5% in the specimen. The [employer] assay for the measurement of HbA1c is a National Glycohemoglobin Standardization Program (NGSP) certified method. Kiel Gardner MD LAB - CHEMISTRY [place] [facility] Performing Organization Address City/[facility] Co de Phone Number [facility] [facility] [address] [place] [address] * MAGNESIUM BLOOD (12/08/2024 3:49 AM LABEL STAMPER) Only the most recent of2 resultswithin the time period is included. Magnesium 2.4 1.6 - 2.6 mg/dL 12/08/2024 4:58 AM LABEL STAMPER [facility] Blood BLOOD SPECIMEN / Unknown Venipuncture / Unknown 12/08/2024 3:49 AM LABEL STAMPER 12/08/2024 4:11 AM LABEL STAMPER Kiel Gardner MD LAB - CHEMISTRY [place] Performing Organization Address [facility] Co de Phone Number [facility] [address] [place] [address] * (ABNORMAL) TROPONIN-I HIGH SENSITIVE (12/07/2024 11:13 AM LABEL STAMPER) Troponin I High Sensitive 16(H) <=14 ng/L 12/07/2024 11:49 AM LABEL STAMPER [facility] Blood BLOOD SPECIMEN / Unknown Venipuncture / Unknown 12/07/2024 11:13 AM LABEL STAMPER 12/07/2024 11:22 AM LABEL STAMPER Kiel Gardner MD LAB - CHEMISTRY [place] [facility] [address] [place] [address] * (ABNORMAL) B-TYPE NATRIURETIC PEPTIDE (12/07/2024 11:13 AM LABEL STAMPER) Pathologist [facility] BNP 191(H) <=100 pg/mL 12/07/2024 11:53 AM LABEL STAMPER [facility] Blood BLOOD SPECIMEN / Unknown Venipuncture / Unknown 12/07/2024 11:13 AM LABEL STAMPER 12/07/2024 11:22 AM LABEL STAMPER Kiel Gardner MD LAB - CHEMISTRY [place] Performing Organization Address City/[facility]/ZIP Co de Phone Number [facility] [id number] [place] [id number] * TSH (12/07/2024 11:13 AM LABEL STAMPER) Pathologist [facility] TSH 1.6472 0.35 - 4.94 uIU/mL 12/07/2024 12:12 PM LABEL STAMPER [facility] Blood BLOOD SPECIMEN / Unknown Venipuncture / Unknown 12/07/2024 11:13 AM LABEL STAMPER 12/07/2024 11:22 AM LABEL STAMPER Kiel Gardner MD LAB - CHEMISTRY [place] [facility] [address] [place], [place] [id number] from Last 3 Months Advance Directives * Full Code (Latest Code Status on File) Date Activated Date Inactivated Comments 12/07/2024 8:32 AM 12/17/2024 5:46 PM Care Teams Head Of Product Relationship Specialty Start Date End Date Joseph Shelton MD [address] [place] [address] PCP - General Family Medicine 12/07/24
[2024-12-30 14:57] LABS: Basophils Percent Auto 0.6 % (0.2-1.2); Eosinophils Absolute Auto 0.1 K/mm3 (0-0.3); Eosinophils Percent Auto 1.1 % (0-4.4); Hematocrit 35.7 % (37.0-47.0); Hemoglobin 11.6 g/dL (12.0-15.0); Immature Granulocyte Absolute 0.01 K/mm3 (0.00-0.031); Immature Granulocyte Percent A 0.1 % (0-0.5); Lymphocytes Absolute Auto 1.22 K/mm3 (0.9-3.2); Lymphocytes Percent Auto 17.1 % (18.3-44.2); Mean Corpuscular HGB Conc 32.5 g/dl (32-36); Mean Corpuscular Volume 98.6 fl (80-100); Mean Platelet Volume 10.4 fl (7.4-10.4); Monocytes Absolute Auto 0.6 K/mm3 (0.1-0.6); Monocytes Percent Auto 7.7 % (2.6-8.5); Neutrophils Absolute Auto 5.2 K/mm3 (1.3-6.7); Neutrophils Percent Auto 73.4 % (45.5-73.1); Platelet Count Result 175 k/mm3 (150-375); Red Blood Count 3.62 M/mm3 (4.2-5.4); Red Cell Distribution Width 15.9 % (11.5-14.5); White Blood Count 7.1 K/mm3 (4.5-10.0)
[2024-12-30 15:15] LABS: Alanine Aminotransferase 46 U/L (6-35); Albumin Level 3.9 g/dL (3.5-5.1); Alkaline Phosphatase 82 U/L (38-126); Anion Gap 3 mmol/L (4-12); Aspartate Amino Transferase 28 U/L (14-36); Bilirubin,Total 0.5 mg/dL (0.2-1.3); Blood Urea Nitrogen 11 mg/dL (7-17); Carbon Dioxide 30 mmol/L (22-30); Chloride 106 mmol/L (98-107); Estimated Glomerular Filt Rate > 60; Glucose 93 mg/dL (65-110); Potassium 4.1 mmol/L (3.4-5.0); Sodium 139 mmol/L (137-145)
== END 2024-12-30 14:35 | disposition home or self-care (01) ==
LOC: ANHLAB 14:35
PROVIDERS: PCP Family Medicine; Visit Provider Nurse Practitioner Adult Health
DX: E11.40 Type 2 diabetes mellitus with diabetic neuropathy, unspecified (principal); I48.91 Unspecified atrial fibrillation; I50.32 Chronic diastolic (congestive) heart failure; I10 Essential (primary) hypertension
CPT/HCPCS: 36415; 80053; 85025

== ENCOUNTER 2025-03-11 15:34 | Outpatient (CLI) | payer OTHER, SELFPAY ==
[2025-03-11 15:47] LABS: Basophils Absolute Auto 0.03 K/mm3 (0.00-0.10); Basophils Percent Auto 0.5 % (0.0-1.0); Eosinophils Absolute Auto 0.07 K/mm3 (0.02-0.50); Eosinophils Percent Auto 1.3 % (1.0-6.0); Hematocrit 39.8 % (35.0-49.0); Hemoglobin 12.6 g/dL (12.0-15.0); Immature Granulocyte Absolute 0.02 K/mm3 (0.00-0.00); Immature Granulocyte Percent A 0.4 % (0.0-0.0); Lymphocytes Absolute Auto 1.14 K/mm3 (1.10-4.50); Lymphocytes Percent Auto 20.4 % (18.0-42.0); Mean Corpuscular HGB Conc 31.7 g/dL (32-36); Mean Corpuscular Hemoglobin 31.3 pg (27.0-31.0); Mean Platelet Volume 10.1 fl (9.2-11.8); Monocytes Absolute Auto 0.48 K/mm3 (0.10-0.90); Monocytes Percent Auto 8.6 % (2.0-11.0); Neutrophils Absolute Auto 3.86 K/mm3 (1.70-7.20); Neutrophils Percent Auto 68.8 % (50.0-70.0); Platelet Count Result 215 K/mm3 (150-420); Red Blood Count 4.02 M/mm3 (4.20-5.40); Red Cell Distribution Width 14.4 % (11.6-14.4); White Blood Count 5.6 K/mm3 (4.8-10.8)
--- OUTSIDE RECORDS SUMMARY | 2025-03-11 15:51 | XMS_ITS | Referral Summary ---
Author Organization [facility] Address [address] [place] [address] Care Team Providers Care Pre Sales Technical Engineer Name Role Phone Joseph Shelton MD Primary Care Provider [phone] Social History Tobacco Use Types Packs/Day Years Used Date Smoking Tobacco: Never Assessed Personal Safety Answer Date Recorded Getting School Help Needed Not on file 12/05 Comments Unknown Sex and Gender Information Value Date Recorded Sex Assigned at Not on file Legal Sex Female 5:33 PM METAL HARDENER Gender Identity Not on file Sexual Orientation Not on file Plan of Treatment Not on file Insurance [place] [employer] Care Teams Pre Sales Technical Engineer Relationship Specialty Start Date End Date Joseph Shelton MD PCP - General Family Medicine 12/06/23
--- OUTSIDE RECORDS SUMMARY | 2025-03-11 15:51 | XMS_ITS | Clinical Summary ---
Author Organization [facility] Address [address] [place] [address] Care Team Providers Care Rn Renal Name Role Phone Joseph Shelton MD Primary [...] Colonoscopy (10 Years) 1974 Annual Physical 1977 Hepatitis C 1992 DTaP, Tdap and Td Vaccines ( 1 - Tdap) 1993 Hepatitis B Vaccines (1 of 3 - 19+ 3-dose series) 1993 Pneumococcal Vaccine: 50+ Years (1 of 2 - PCV) 1993 Cervical Cancer Screening Pa p with HPV Testing (Age 30 to 64) Every 5 Years 2004 Cervical Cancer Screening wi th HPV 2004 Mammogram Screening 2014 Zoster Vaccines (1 of 2) 2024 COVID-19 Vaccine (2023-2 5 season) 2024 12/07/2021, 11/16/2021 Meningococcal B Vaccine Aged Out No l onger eligible based on patient's age to complete this topic Meningococcal Vaccine Aged Out No falca myra eligible based on patient's age to complete this topic RSV Immunizations Under 20 Months Aged Out No longer eligible b ased on patient's age to complete this topic Insurance [facility] MEDICAID Care Teams Rn Renal Relationship Specialty Start Date End Date Joseph Shelton MD [address] [place] [address] PCP - General FAMILY PRACTICE 05/23/22
--- OUTSIDE RECORDS SUMMARY | 2025-03-11 15:51 | XMS_ITS | Clinical Summary ---
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
--- OUTSIDE RECORDS SUMMARY | 2025-03-11 15:51 | XMS_ITS | Clinical Summary ---
Author Organization [facility] [email or web address] Address [address] [place] [address] Care Team Providers Care Scarfer Name Role Phone Joseph Shelton MD Primary Care Provider [phone] Source Comments [facility],non-owned Affiliates and Associated Physician Practices is amultiple site organization consisting of ambulatory clinics and hospital sitesin [place], [place], [place] and [place]. This disclosure is being madepursuant to the Care Everywhere program and may not contain all information available regarding this patient. Last updated 18.[facility] [email or web address] Allergies Active Allergy Reactions Criticality Noted Date Comments Cefadroxil GI Discomfort Low 12/07/2024 Medications * Be aware that medications may not be up to date on this document. Alwaysverify current medications with the patient. sotalol (Betapace) 80 MG tablet Take 1 [...] / 24 hours. Active buPROPion SR 12hr (Wellbutrin-SR ) 150 MG tablet Take 1 (one) tablet [...] for Wheezing or Shortness of Breath Active budeson-glycop yrrol-formoter ol (Breztri Aerosphere) 160-9-4.8 MCG/ACT inhaler Inhale 2 (two) puffs by mouth 2 times daily Active HYDROcodone-ac etaminophen (Faber) 5-325 MG tabletIndicati ons:Other closed fracture of second lumbar vertebra, initial encounter ([facility]) Take 1 (one) tablet by mouth every 6 hours as needed 12 tablet 5 Active metoprolol tartrate IR (Lopressor) 25 MG tablet Take 0.5 (one-half) tablet by mouth 2 times daily 30 tablet 5 Active cefTRIAXone 2 g 2,000 mg in 0.9% NaCl IV 0.9 % 50 mL 2,000 (two thousand) mg by Intravenous route every 24 hours Continue ceftriaxone 2 gm IV daily until 12/28 Weekly CBC with diff and CMP. Please fax results to [phone]. Follow up with Dr. Gilmore in 1-2 weeks/PRN. Please call [phone] for scheduling. Discontinue PICC after last dose of abx. 5 Active lidocaine (Lidoderm) 5 % patch Apply 1 (one) patch to skin every 24 hours Apply patch to most painful area and remove after 12 hours. May reapply a new patch 12 hours later. 14 patch 5 Active senna-docusate (Senokot-S) 8.6-50 MG tablet Take 1 (one) tablet by mouth 2 times daily as needed for Constipation 20 tablet 5 Active cyclobenzaprin e (Flexeril) 10 MG tablet Take 1 (one) tablet by mouth 3 times daily as needed for Muscle Spasms 15 tablet 5 Active Resolved Problems Problem Noted Date Diagnosed Date Resolved Date Atrial fibrillation with rap id ventricular response 12/06/2024 12/17/2024 Encounters Date Type Department Care Team Description 12/07/2024 7:51 AM HYPERION DEVELOPER - 12/17/2024 4:40 PM HYPERION DEVELOPER Hospital Encounter [facility] [address] [place] [address] Ceasar Markham MD Jones, Olujoke, MD Kaswan, Nitika, MD Yu, Yang, MD Chilakala, Aruna, MD Hospitalist Discharge Disposition: Home Health Care Svc from Last 3 Months Social History Tobacco Use Types Packs/Day Years Used Date Smoking Tobacco: Never Tobacco Cessation:Counseling Given: Not Answered Comments Unknown Sex and Gender Information Value Date Recorded Sex Assigned at Not on file Legal Sex Female 12:26 PM CDT Gender Identity Not on file Sexual Orientation Not on file Last Filed Vital Signs Vital Sign Reading Time Taken Comments Blood Pressure 124/74 12/17/2024 11:56 AM HYPERION DEVELOPER Pulse 60 12/17/2024 11:56 AM HYPERION DEVELOPER Temperature 36.6 C (97.8 F) 12/17/2024 11:56 AM HYPERION DEVELOPER Respiratory Rate 17 12/17/2024 11:56 AM HYPERION DEVELOPER Oxygen Saturation 94% 12/17/2024 11:56 AM HYPERION DEVELOPER Inhaled Oxygen Concentration - - Weight 101.6 kg (224 lb) 12/07/2024 2:40 PM HYPERION DEVELOPER Height 162.6 cm (5' 4 ) 12/07/2024 2:40 PM HYPERION DEVELOPER Body Mass Index 38.45 12/07/2024 2:40 PM HYPERION DEVELOPER Plan of Treatment Health Maintenance Due Date [...] VACCINE (1 - 2023-2 5 season) 2024 DEPRESSION SCREENING 11/11/2024 INFLUENZA VACCINE (Season Ended) 2025 HIB VACCINE Aged Out No longer eligi ble based on patient's age to complete this topic HPV VACCINE Aged Out No longer eligi ble based on patient's age to complete this topic MENINGOCOCCAL (Group B) VACC INE SHARED DECISION-MAKING Aged Out No longer eligibl e based on patient's age to complete this topic MENINGOCOCCAL GROUPS A/C/Y/W VACCINE Aged Out No longer eligible b ased on patient's age to complete this topic Procedures Procedure Name Priority Date/Time Associated Diagnosis Comments CARDIAC RHYTHM STRIP ORDER 12/18/2024 10:49 PM HYPERION DEVELOPER GLUCOSE - POINT OF CARE Routine 12/17/2024 11:55 AM HYPERION DEVELOPER GLUCOSE - POINT OF CARE Routine 12/17/2024 6:43 AM HYPERION DEVELOPER COMPREHENSIVE METABOLIC PANEL AM Draw 12/17/2024 5:19 AM HYPERION DEVELOPER CBC W AUTO DIFFERENTIAL AM Draw 12/17/2024 5:19 AM HYPERION DEVELOPER GLUCOSE - POINT OF CARE Routine 12/16/2024 7:56 PM HYPERION DEVELOPER GLUCOSE - POINT OF CARE Routine 12/16/2024 5:01 PM HYPERION DEVELOPER ECHO LIMITED OR FOLLOWUP Routine 12/16/2024 11:52 AM HYPERION DEVELOPER Atrial fibrillation with rapid ventricular response GLUCOSE - POINT OF CARE Routine 12/16/2024 11:47 AM HYPERION DEVELOPER GLUCOSE - POINT OF CARE Routine 12/16/2024 6:35 AM HYPERION DEVELOPER BASIC METABOLIC PANEL (CALCIUM TOTAL) AM Draw 12/16/2024 4:53 AM HYPERION DEVELOPER GLUCOSE - POINT OF CARE Routine 12/15/2024 9:42 PM HYPERION DEVELOPER GLUCOSE - POINT OF CARE Routine 12/15/2024 4:21 PM HYPERION DEVELOPER GLUCOSE - POINT OF CARE Routine 12/15/2024 11:01 AM HYPERION DEVELOPER GLUCOSE - POINT OF CARE Routine 12/15/2024 6:37 AM HYPERION DEVELOPER BASIC METABOLIC PANEL (CALCIUM TOTAL) AM Draw 12/15/2024 4:14 AM HYPERION DEVELOPER CBC W AUTO DIFFERENTIAL AM Draw 12/15/2024 4:14 AM HYPERION DEVELOPER HOME CPAP/BIPAP FOR HOSP USE: NOCTURNAL 02 Routine 12/15/2024 12:00 AM HYPERION DEVELOPER CARDIAC EKG ORDER 12/14/2024 10: 07 PM HYPERION DEVELOPER GLUCOSE - POINT OF CARE Routine 12/14/2024 4:23 PM HYPERION DEVELOPER GLUCOSE - POINT OF CARE Routine 12/14/2024 10:58 AM HYPERION DEVELOPER CULTURE BLOOD Timed 12/14/2024 10:53 AM HYPERION DEVELOPER CULTURE BLOOD Timed 12/14/2024 10:48 AM HYPERION DEVELOPER GLUCOSE - POINT OF CARE Routine 12/14/2024 6:20 AM HYPERION DEVELOPER BASIC METABOLIC PANEL (CALCIUM TOTAL) AM Draw 12/14/2024 4:49 AM HYPERION DEVELOPER CBC W AUTO DIFFERENTIAL AM Draw 12/14/2024 4:49 AM HYPERION DEVELOPER HOME CPAP/BIPAP FOR HOSP USE: NOCTURNAL 02 Routine 12/14/2024 12:00 AM HYPERION DEVELOPER GLUCOSE - POINT OF CARE Routine 12/13/2024 8:46 PM HYPERION DEVELOPER GLUCOSE - POINT OF CARE Routine 12/13/2024 4:44 PM HYPERION DEVELOPER GLUCOSE - POINT OF CARE Routine 12/13/2024 11:41 AM HYPERION DEVELOPER BASIC METABOLIC PANEL (CALCIUM TOTAL) LORI 12/13/2024 10:11 AM HYPERION DEVELOPER CBC W AUTO DIFFERENTIAL LORI 12/13/2024 10:11 AM HYPERION DEVELOPER HOME CPAP/BIPAP FOR HOSP USE: NOCTURNAL 02 Routine 12/13/2024 12:00 AM HYPERION DEVELOPER CULTURE BLOOD Timed 12/12/2024 5:26 PM HYPERION DEVELOPER BCID PANEL Routine 12/12/2024 5:18 PM HYPERION DEVELOPER CULTURE BLOOD Timed 12/12/2024 5:18 PM HYPERION DEVELOPER GLUCOSE - POINT OF CARE Routine 12/12/2024 11:44 AM HYPERION DEVELOPER HOME CPAP/BIPAP FOR HOSP USE: NOCTURNAL 02 Routine 12/12/2024 7:43 AM HYPERION DEVELOPER HOME CPAP/BIPAP FOR HOSP USE: NOCTURNAL 02 Routine 12/12/2024 7:43 AM HYPERION DEVELOPER from Last 3 Months Results * CARDIAC RHYTHM STRIP ORDER (12/18/2024 10:49 PM HYPERION DEVELOPER) Narrative 12/18/2024 10:49 PM HYPERION DEVELOPER Ordered by an unspecified provider. us Scanned Document CARDIAC SERVICES ORDERABLES Gonzalez velma Result - Final * GLUCOSE - POINT OF CARE (12/17/2024 11:55 AM HYPERION DEVELOPER) Only the most recent of17 resultswithin the time period is included. Glucose WB/POC 99 70 - 99 mg/dL 12/17/2024 12:36 PM HYPERION DEVELOPER [facility] Specimen Type Cap Fingerstick 2024 12:36 PM HYPERION DEVELOPER [facility] Blood BLOOD SPECIMEN / Unknown 12/17/2024 11:55 AM HYPERION DEVELOPER 12/17/2024 12:36 PM HYPERION DEVELOPER us Teri Arora MD LAB - POINT OF CARE ORDERABLE S Final Result [facility] [address] [place] [address] * (ABNORMAL) CBC W AUTO DIFFERENTIAL (12/17/2024 5:19 AM HYPERION DEVELOPER) Only the most recent of4 resultswithin the time period is included. WBC 4.7 4.0 - 10.7 x10E9/L 12/17/2024 5:57 AM [facility] RBC Count 3.47(L) 3.90 - 5.20 x10E12/L 12/17/2024 5:57 AM [facility] Hemoglobin 10.9(L) 11.9 - 15.8 g/dL 12/17/2024 5:57 AM [facility] Hematocrit 34.0(L) 34.8 - 46.1 % 12/17/2024 5:57 AM [facility] MCV 98.0 80.0 - 98.0 fL 12/17/2024 5:57 AM [facility] MCH 31.4 26.7 - 33.6 pg 12/17/2024 5:57 AM [facility] MCHC 32.1 31.7 - 36.3 g/dL 12/17/2024 5:57 AM [facility] RDW-CV 14.2 11.3 - 14.8 % 12/17/2024 5:57 AM [facility] Platelet Count 179 150 - 420 x10E9/L 12/17/2024 5:57 AM [facility] MPV 10.7 7.8 - 11.4 fL 12/17/2024 5:57 AM [facility] Neutrophil % 56.8 41.0 - 74.0 % 12/17/2024 5:57 AM [facility] Lymphocyte % 29.3 17.0 - 47.0 % 12/17/2024 5:57 AM [facility] Monocyte % 10.7 3.0 - 11.0 % 12/17/2024 5:57 AM [facility] Eosinophil % 2.4 0.0 - 7.0 % 12/17/2024 5:57 AM [facility] Basophil % 0.6 0.0 - 1.6 % 12/17/2024 5:57 AM [facility] Immature Granulocytes % 0.2 0.0 - 1.0 % 12/17/2024 5:57 AM [facility] Neutrophil Absolute 2.66 1.60 - 7.50 x10E9/L 12/17/2024 5:57 AM [facility] Lymphocyte Absolute 1.37 1.00 - 4.40 x10E9/L 12/17/2024 5:57 AM [facility] Monocyte Absolute 0.50 0.15 - 1.00 x10E9/L 12/17/2024 5:57 AM [facility] Eosinophil Absolute 0.11 0.00 - 0.60 x10E9/L 12/17/2024 5:57 AM [facility] Basophil Absolute 0.03 0.00 - 0.13 x10E9/L 12/17/2024 5:57 AM [facility] Blood BLOOD SPECIMEN / Unknown Line Draw / Unknown 12/17/2024 5:19 AM HYPERION DEVELOPER 12/17/2024 5:26 AM [facility] us Nasir Jaramillo LINDERMAN OPERATOR-PUBLIC HEALTH DENTIST LAB - HEMATOLOGY ORD ERABLES Final Result [facility] [address] [place] [address] * (ABNORMAL) COMPREHENSIVE METABOLIC PANEL (12/17/2024 5:19 AM [facility]) Glucose 93 70 - 99 mg/dL 12/17/2024 5:49 AM [facility] Sodium 142 136 - 145 mmol/L 12/17/2024 5:49 AM [facility] Potassium 4.4 3.5 - 5.1 mmol/L 12/17/2024 5:49 AM [facility] Chloride 107 98 - 107 mmol/L 12/17/2024 5:49 AM [facility] CO2 28 22 - 29 mmol/L 12/17/2024 5:49 AM [facility] Calcium 8.6 8.4 - 10.4 mg/dL 12/17/2024 5:49 AM [facility] Anion Gap 7 6 - 16 mmol/L 12/17/2024 5:49 AM [facility] BUN 17 7 - 26 mg/dL 12/17/2024 5:49 AM [facility] Creatinine 0.58 0.57 - 1.11 mg/dL 12/17/2024 5:49 AM [facility] Alkaline Phosphatase 79 40 - 150 U/L 12/17/2024 5:49 AM [facility] ALT 47 0 - 55 U/L 12/17/2024 5:49 AM [facility] AST 25 5 - 34 U/L 12/17/2024 5:49 AM [facility] Protein Total 5.4(L) 6.4 - 8.3 gm/dL 12/17/2024 5:49 AM [facility] Albumin 2.6(L) 3.4 - 5.0 gm/dL 12/17/2024 5:49 AM [facility] Bilirubin Total 0.2 0.2 - 1.2 mg/dL 12/17/2024 5:49 AM [facility] eGFR by CKD-EPI >90 >=90 mL/min/1.7 3 m2 12/17/2024 5:49 AM [facility] Blood BLOOD SPECIMEN / Unknown Line Draw / Unknown 12/17/2024 5:19 AM HYPERION DEVELOPER 12/17/2024 5:26 AM [facility] Nasir Jaramillo LINDERMAN OPERATOR-PUBLIC HEALTH DENTIST LAB - [facility]MISTRY [facility] Final Result [facility] [address] [place] [address] * ECHO LIMITED OR FOLLOWUP (12/16/2024 11:52 AM [facility]) Myocardial strain charge 2 unitless [facility] [employer] PACS Anatomical Region Laterality Modality Ultrasound 12/16/2024 9:47 AM HYPERION DEVELOPER Narrative 12/16/2024 6:13 PM HYPERION DEVELOPER Summary * The left ventricle is normal [...] normal and mildly thickened. Patient Info Name: Charity Mclean Age: 49 years : 1975 Gender: Female Ht: 64 in Wt: 224 lb BSA: 2.19 m2 BP: 104 / 72 mmHg Exam Date: 12/16/2024 9:47 AM Patient Status: I/P Study Site: [facility] Primary Location: [facility] EStudy Info Technical Quality: Adequate Exam Type: ECHO LIMITED OR FOLLOWUP Indications I48.91 - Atrial fibrillation with rapid ventricular response (HCC) - Bacteremia Procedure(s) * A limited 2D and M-Mode transthoracic echocardiogram was performed. Reason for Technically Difficult Study: body habitus, patient supine Staff Referring Physician: Michelle Purdy Ordering Provider: Michelle Purdy Attending Physician: Michelle Purdy Civil Cad Designer: Katy Marin [facility] Left Ventricle The left ventricle [...] normal and mildly thickened. Patient Info Name: Charity Mclean Age: 49 years : 1975 Gender: Female Ht: 64 in Wt: 224 lb BSA: 2.19 m2 BP: 104 / 72 mmHg Exam Date: 12/16/2024 9:47 AM Patient Status: I/P Study Site: [facility] Primary Location: [facility] EStudy Info Technical Quality: Adequate Exam Type: ECHO LIMITED OR FOLLOWUP Indications I48.91 - Atrial fibrillation with rapid ventricular response (HCC) - Bacteremia Procedure(s) * A limited 2D and M-Mode transthoracic echocardiogram was performed. Reason for Technically Difficult Study: body habitus, patientsupine Staff Referring Physician: Michelle Purdy Ordering Provider: Michelle Purdy Attending Physician: Michelle Purdy Civil Cad Designer: Katy Marin [facility] Left Ventricle The left ventricle [...] by Tin Block on 12/16/2024 06:13 PM us Michelle Purdy DO ECHO CUPID Final Result * (ABNORMAL) BASIC METABOLIC PANEL (CALCIUM TOTAL) (12/16/2024 4:53 AM HYPERION DEVELOPER) Only the most recent of4 resultswithin the time period is included. Glucose 95 70 - 99 mg/dL 12/16/2024 5:46 AM HYPERION DEVELOPER [facility] Sodium 141 136 - 145 mmol/L 12/16/2024 5:46 AM [facility] Potassium 4.5 3.5 - 5.1 mmol/L 12/16/2024 5:46 AM [facility] Chloride 108(H) 98 - 107 mmol/L 12/16/2024 5:46 AM [facility] CO2 28 22 - 29 mmol/L 12/16/2024 5:46 AM [facility] Calcium 8.6 8.4 - 10.4 mg/dL 12/16/2024 5:46 AM [facility] Anion Gap 5(L) 6 - 16 mmol/L 12/16/2024 5:46 AM [facility] BUN 12 7 - 26 mg/dL 12/16/2024 5:46 AM [facility] Creatinine 0.59 0.57 - 1.11 mg/dL 12/16/2024 5:46 AM [facility] eGFR by CKD-EPI >90 >=90 mL/min/1.7 3 m2 12/16/2024 5:46 AM [facility] Blood BLOOD SPECIMEN / Unknown Line Draw / Unknown 12/16/2024 4:53 AM HYPERION DEVELOPER 12/16/2024 5:18 AM HYPERION DEVELOPER Teri Arora MD LAB - CHEMISTRY ORDERABLES Fi nal Result [facility] [address] [place] [address] * CARDIAC EKG ORDER (12/14/2024 10:07 PM HYPERION DEVELOPER) Narrative 12/14/2024 10:07 PM HYPERION DEVELOPER Ordered by an unspecified provider. us Scanned Document CARDIAC SERVICES ORDERABLES Fin al Result * CULTURE BLOOD (12/14/2024 10:53 AM HYPERION DEVELOPER) Only the most recent of4 resultswithin the time period is included. Culture No growth day 5 ZAHIRA 12/19/2024 1:31 PM [facility] Blood PERIPHERAL BLOOD / Unknown Venipuncture / Unknown 12/14/2024 10:53 AM HYPERION DEVELOPER 12/14/2024 11:04 AM HYPERION DEVELOPER us Nasir Jaramillo LINDERMAN OPERATOR-PUBLIC HEALTH DENTIST LAB - MICROBIOLOGY O RDERABLES Final Result [facility] [address] [place], [place] [address], [place] [phone] * (ABNORMAL) BCID PANEL (12/12/2024 5:18 PM HYPERION DEVELOPER) Streptococcus species Detected (A) Not detected 12/13/2024 9:28 AM HYPERION DEVELOPER [facility] Comment: Streptococcus species (not S. agalactiae, S. pneumoniae, or S. pyogenes). Blood PERIPHERAL BLOOD / Unknown Venipuncture / Unknown 12/12/2024 5:18 PM HYPERION DEVELOPER 12/12/2024 5:35 PM HYPERION DEVELOPER Narrative [facility] - 12/13/2024 9:28 AM HYPERION DEVELOPER Blood Culture ID Panel performed by [employer] multiplex PCR. The Test panel includes: Gram [...] and MREJ (methicillin-resistance - MRSA), NDM ([place] eiiumce-mrys-qlbbhzeoo), OXA-48-like (oxacillinase beta-lactamase),Elaina/B (vancomycin-resistance), VIM (Charleen Intergrom-Encoded Metallo beta-lactamase). Joshua Powell MD LAB - MICROBIOLOGY ORDERABLES Fi nal Result [facility] [address] [place] [address], [facility] [phone] from Last 3 Months Insurance [facility] Advance Directives * Full Code (Latest Code Status on File) Date Activated Date Inactivated Comments 12/07/2024 8:32 AM 12/17/2024 5:46 PM Care Teams Scarfer Relationship Specialty Start Date End Date Joseph Shelton MD [address] [place] [address] PCP - General Family Medicine 12/07/24
[2025-03-12 02:21] LABS: Hemoglobin A1C 5.6 % (<5.7)
[2025-03-12 06:28] LABS: Alanine Aminotransferase 20 U/L (14-59); Albumin Level 3.5 g/dL (3.4-5.0); Alkaline Phosphatase 100 U/L (46-116); Anion Gap 4 mmol/L (4-12); Aspartate Amino Transferase 15 U/L (15-37); Bilirubin,Total 0.3 mg/dL (0.00-1.00); Blood Urea Nitrogen 10 mg/dL (7-18); Carbon Dioxide 34 mmol/L (21-32); Chloride 105 mmol/L (98-108); Estimated Glomerular Filt Rate > 60; Folic Acid 10.5 ng/mL (8.6->20); Glucose 158 mg/dL (70-99); Iron 57 ug/dL (50-170); NT Pro B Type Natriuretic Pept 114 pg/mL (0-125); Osmolality Calculated 298 mOsm/kg (285-295); Percent Iron Saturation 17 % (12-57); Potassium 4.4 mmol/L (3.5-5.1); Sodium 143 mmol/L (136-145); Total Protein 6.7 g/dL (6.4-8.2); Vitamin B12 389 pg/mL (193-986)
[2025-03-16 01:28] LABS: Vitamin D 25 Hydroxy 21 ng/mL (30-100)
== END 2025-03-11 15:35 | disposition home or self-care (01) ==
LOC: CHSLAB 15:36
PROVIDERS: PCP Family Medicine; Visit Provider Nurse Practitioner Adult Health
DX: I10 Essential (primary) hypertension (principal); I50.32 Chronic diastolic (congestive) heart failure; I48.91 Unspecified atrial fibrillation; E11.40 Type 2 diabetes mellitus with diabetic neuropathy, unspecified
CPT/HCPCS: 36415; 80053; 82306; 82607; 82746; 83036; 83540; 83550; 83880; 85025

== ENCOUNTER 2025-04-12 11:50 | Outpatient (CLI) | payer OTHER, SELFPAY ==
--- NOTE | 2025-04-12 11:57 | ECG_ITS ---
Test Date: 2025-04-12 12:04:31 Measurements Intervals [place] Rate: 97 P: 15 MI: 153 QRS: 61 QRSD: 85 T: 56 QT: 341 QTc: 435 Interpretive Statements SINUS RHYTHM NORMAL ECG Compared to ECG 12/06/2024 14:45:13 Atrial fibrillation no longer present ST-T wave abnormality no longer present Electronically Signed On 04-12-2025 15:50:00 CDT by Jonathon Villarreal D.O.
--- OUTSIDE RECORDS SUMMARY | 2025-04-12 12:05 | XMS_ITS | Clinical Summary ---
Author Organization [facility] Address [address] [place] [address] Care Team Providers Care Php Web Developer Name Role Phone Joseph Shelton MD Primary Care Provider [phone] Social History Tobacco Use Types Packs/Day Years Used Date Smoking Tobacco: Never Assessed Personal Safety Answer Date Recorded Getting School Help Needed Not on file 12/05 Comments Unknown Sex and Gender Information Value Date Recorded Sex Assigned at Not on file Legal Sex Female 5:33 PM ASSET PROTECTION REPRESENTATIVE Gender Identity Not on file Sexual Orientation [...] 5 season) 2024 12/07/2021, 11/16/2021 Influenza Vaccine (Season Ended) 2025 Pneumococcal vaccine <65 Aged Out No longer eligible based on patient's age to complete this topic Insurance [place] [employer] Care Teams Php Web Developer Relationship Specialty Start Date End Date Joseph Shelton MD PCP - General Family Medicine 12/06/23
--- OUTSIDE RECORDS SUMMARY | 2025-04-12 12:05 | XMS_ITS | Referral Summary ---
Author Organization [facility] Address [address] [place] [address] Care Team Providers Care Deli Cutter Slicer Name Role Phone Joseph Shelton MD Primary Care Provider [phone] Social History Tobacco Use Types Packs/Day Years Used Date Smoking Tobacco: Never Assessed Personal Safety Answer Date Recorded Getting School Help Needed Not on file 12/05 Comments Unknown Sex and Gender Information Value Date Recorded Sex Assigned at Not on file Legal Sex Female 5:33 PM DATA ENTRY MACHINE OPERATOR Gender Identity Not on file Sexual Orientation Not on file Plan of Treatment Not on file Insurance [place] [employer] Care Teams Deli Cutter Slicer Relationship Specialty Start Date End Date Joseph Shelton MD PCP - General Family Medicine 12/06/23
--- OUTSIDE RECORDS SUMMARY | 2025-04-12 12:05 | XMS_ITS | Clinical Summary ---
Author Organization [facility] Address [address] [place] [address] Care Team Providers Care Cargo Agent Name Role Phone Joseph Shelton MD Primary Care Provider [phone] Source Comments [facility],non-owned Affiliates and Associated Physician Practices is amultiple site organization consisting of ambulatory clinics and hospital sitesin [place], [place], [place] and [place]. This disclosure is being madepursuant to the Care Everywhere program and may not contain all information available regarding this patient. Last updated 18.[facility] Allergies Active Allergy Reactions Criticality Noted Date [...] mouth 2 times daily Active HYDROcodone-ac etaminophen ([place]) 5-325 MG tabletIndicati ons:Other closed fracture of second lumbar vertebra, initial encounter ([facility]) Take 1 (one) tablet by mouth every [...] diff and CMP. Please fax results to [phone]. Follow up with Dr. Gilmore in 1-2 weeks/PRN. Please call [phone] for scheduling. Discontinue PICC after last dose [...] Comments Blood Pressure 124/74 12/17/2024 11:56 AM GROUND NUCLEAR WEAPONS ASSEMBLY OFFICER Pulse 60 12/17/2024 11:56 AM GROUND NUCLEAR WEAPONS ASSEMBLY OFFICER Temperature 36.6 C (97.8 F) 12/17/2024 11:56 AM GROUND NUCLEAR WEAPONS ASSEMBLY OFFICER Respiratory Rate 17 12/17/2024 11:56 AM GROUND NUCLEAR WEAPONS ASSEMBLY OFFICER Oxygen Saturation 94% 12/17/2024 11:56 AM GROUND NUCLEAR WEAPONS ASSEMBLY OFFICER Inhaled Oxygen Concentration - - Weight 101.6 kg (224 lb) 12/07/2024 2:40 PM GROUND NUCLEAR WEAPONS ASSEMBLY OFFICER Height 162.6 cm (5' 4) 12/07/2024 2:40 PM GROUND NUCLEAR WEAPONS ASSEMBLY OFFICER Body Mass Index 38.45 12/07/2024 2:40 PM GROUND NUCLEAR WEAPONS ASSEMBLY OFFICER Plan of Treatment Health Maintenance Due Date [...] patient's age to complete this topic Insurance [facility] Advance Directives * Full Code (Latest Code Status on File) Date Activated Date Inactivated Comments 12/07/2024 8:32 AM 12/17/2024 5:46 PM Care Teams Cargo Agent Relationship Specialty Start Date End Date Joseph Shelton MD [address] [place] [id number] PCP - General Family Medicine 12/07/24
== END 2025-04-12 11:51 | disposition home or self-care (01) ==
LOC: CHSCARD 11:51
PROVIDERS: PCP Family Medicine; Visit Provider Anesthesiology
DX: I48.91 Unspecified atrial fibrillation (principal)
CPT/HCPCS: 93005

== ENCOUNTER 2025-05-17 08:35 | Outpatient (CLI) | payer OTHER, SELFPAY ==
--- NOTE | ~2025-05-17 | NM_ITS ---
EXAMINATION: NM francine stress w perfusion DATE: 05/17/2025 11:33 INDICATION: Encounter for preprocedural cardiac exam TECHNIQUE: Rest images were obtained following intravenous administration of 11.5 mCi Tc99m tetrofosm in (Myoview). The patient was infused intravenously with Lexiscan (Regadenoson). Then, 31.8 mCi Tc99m tetrofosmin (Myoview) was administered intravenously, and stress images were obtained. Data was lotus nstructed into short axis and horizontal and vertical long axis SPECT images. Gated SPECT images were also obtained. COMPARISON: None. FINDINGS: There is no definite reversible or fixed perfusion abnormality to suggest ischemia or infar ction. There is normal left ventricular chamber size, wall motion and ejection fraction. Left ventr icular ejection fraction measures >70%. IMPRESSION: 1. Normal myocardial perfusion at rest and during stress. 2. Left ventricular ejection fraction measuring >70%. Reviewed, dictated and finalized at location A.
--- NOTE | 2025-05-17 08:47 | EST_ITS ---
Patient Info Name: Charity Mclean Age: 49 years : 1975 Gender: Female Ht: 65 in Wt: 226 lbs BSA: 2.22 m2 HR: 70 bpm BP: 144 / 81 mmHg Exam Date: 05/17/2025 8:47 AM Patient Status: O Admit Date: 05/17/2025 Exam Type: CA stress francine w NM A regadenoson stress test was performed. Staff Referring Physician: Jonathon Villarreal DO Attending Provider: Jonathon Villarreal DO Exercise Technologist: Katy Gonzalez Exercise Physician: Jonathon Villarreal DO Summary 1. 1. Negative lexiscan stress test for ischemic ST changes by ECG criteria. 2. 2. Baseline hypertension. 3. 3. Nuclear scan to follow and will be reported separately. Please correlate with it. 4. 4. Patient informed of the above results. Protocol: Lexiscan Stress ECG Details Stage: REST Duration (min): 0 min : 13 sec HR (bpm): 73 SBP (mmHg): --- DBP (mmHg): --- Stage: REST Duration (min): 0 min : 33 sec HR (bpm): 71 SBP (mmHg): --- DBP (mmHg): --- Stage: REST Duration (min): 15 min : 51 sec HR (bpm): 76 SBP (mmHg): 144 DBP (mmHg): 81 Stage: STAGE 1 Duration (min): 0 min : 59 sec HR (bpm): 92 SBP (mmHg): 135 DBP (mmHg): 77 Stage: RECOVERY Duration (min): 1 min : 0 sec HR (bpm): 91 SBP (mmHg): 135 DBP (mmHg): 77 Stage: RECOVERY Duration (min): 2 min : 0 sec HR (bpm): 82 SBP (mmHg): 135 DBP (mmHg): 77 Stage: RECOVERY Duration (min): 3 min : 0 sec HR (bpm): 83 SBP (mmHg): 150 DBP (mmHg): 81 Stage: RECOVERY Duration (min): 4 min : 0 sec HR (bpm): 88 SBP (mmHg): 152 DBP (mmHg): 79 Stage: RECOVERY Duration (min): 4 min : 47 sec HR (bpm): 84 SBP (mmHg): 159 DBP (mmHg): 78 Rest HR: 76 bpm Peak HR: 95 bpm Rest Sys BP: 144 mmHg Peak Sys BP: 159 mmHg Max Pred HR: 170 bpm % Max Pred HR: 56 % Target HR: 145 bpm Max RPP: 15,105 bpm*mmHg Termination Reason: Completed protocol Cardiac Symptoms: Shortness of breath Total Time: 1 min : 0 sec Rest Morales BP: 81 mmHg Peak Morales BP: 78 mmHg Total Dose: 0.4 mg Resting ECG Sinus rhythm. Stress ECG No ST changes. Arrhythmias None. Report Signatures
--- OUTSIDE RECORDS SUMMARY | 2025-05-17 08:48 | XMS_ITS | Clinical Summary ---
Author Organization [facility] Address [address] [place] [address] Care Team Providers Care Gear Lapper Name Role Phone Joseph Shelton MD Primary Care Provider [phone] Source Comments [facility],non-owned Affiliates and Associated Physician Practices is amultiple site organization consisting of ambulatory clinics and hospital sitesin [place], [place], [place] and [place]. This disclosure is being madepursuant to the Care Everywhere program and may not contain all information available regarding this patient. Last updated 18.[facility] Allergies Active Allergy Reactions Criticality Noted Date [...] mouth 2 times daily Active HYDROcodone-ac etaminophen ([place]) 5-325 MG tabletIndicati ons:Other closed fracture of second lumbar vertebra, initial encounter ([facility]) Take 1 (one) tablet by [...] diff and CMP. Please fax results to [phone]. Follow up with Dr. Gilmore in 1-2 weeks/PRN. Please call [phone] for scheduling. Discontinue PICC after last dose [...] Comments Blood Pressure 124/74 12/17/2024 11:56 AM SHOE PULLER Pulse 60 12/17/2024 11:56 AM SHOE PULLER Temperature 36.6 C (97.8 F) 12/17/2024 11:56 AM SHOE PULLER Respiratory Rate 17 12/17/2024 11:56 AM SHOE PULLER Oxygen Saturation 94% 12/17/2024 11:56 AM SHOE PULLER Inhaled Oxygen Concentration - - Weight 101.6 kg (224 lb) 12/07/2024 2:40 PM SHOE PULLER Height 162.6 cm (5' 4) 12/07/2024 2:40 PM SHOE PULLER Body Mass Index 38.45 12/07/2024 2:40 PM SHOE PULLER Plan of Treatment Health Maintenance Due Date Last Done Comments COLOGUARD (AGES 45-75) - COL ON CA SCREENING 1975 COLON MONITORING 1975 COLONOSCOPY - COLON CA SCREENING 1974 CT COLONOGRAPHY - COLON CA SCREENING 1975 Colorectal Cancer Screening 1975 FIT - COLON CA SCREENING 1975 FLEX SIG - COLON CA SCREENING 1975 MAMMOGRAM 1975 HIV SCREENING 1989 HEPATITIS C SCREENING 05/28/1992 DTAP/TDAP/TD VACCINES (1 - Tdap) 1993 HEPATITIS B VACCINE (1 of 3 - 19+ 3-dose series) 1993 PNEUMOCOCCAL VACCINE 50+ (1 of 2 - PCV) 1993 PAP SMEAR 1995 ZOSTER VACCINE (1 of 2) 2024 COVID-19 VACCINE (1 - 2023-2 5 season) 2024 DEPRESSION SCREENING 11/11/2024 INFLUENZA VACCINE (#1) 2025 HIB VACCINE Aged Out No longer [...] patient's age to complete this topic Insurance [facility] Advance Directives * Full Code (Latest Code Status on File) Date Activated Date Inactivated Comments 12/07/2024 8:32 AM 12/17/2024 5:46 PM Care Teams Gear Lapper Relationship Specialty Start Date End Date Joseph Shelton MD [address] [place] [phone] PCP - General Family Medicine 12/07/24
--- OUTSIDE RECORDS SUMMARY | 2025-05-17 08:48 | XMS_ITS | Clinical Summary ---
Author Organization [facility] Address [address] [place] [address] Care Team Providers Care Counselor Supervisor Name Role Phone Joseph Shelton MD Primary Care Provider [phone] Social History Tobacco Use Types Packs/Day Years Used Date Smoking Tobacco: Never Assessed Personal Safety Answer Date Recorded Getting School Help Needed Not on file 12/05 Comments Unknown Sex and Gender Information Value Date Recorded Sex Assigned at Not on file Legal Sex Female 5:33 PM PUMP TENDER Gender Identity Not on file Sexual Orientation [...] patient's age to complete this topic Insurance [place] [employer] Care Teams Counselor Supervisor Relationship Specialty Start Date End Date Joseph Shelton MD PCP - General Family Medicine 12/06/23
--- OUTSIDE RECORDS SUMMARY | 2025-05-17 08:48 | XMS_ITS | Referral Summary ---
Author Organization [facility] Address [address] [place] [address] Care Team Providers Care Dispatcher Service Or Work Name Role Phone Joseph Shelton MD Primary Care Provider [phone] Social History Tobacco Use Types Packs/Day Years Used Date Smoking Tobacco: Never Assessed Personal Safety Answer Date Recorded Getting School Help Needed Not on file 12/05 Comments Unknown Sex and Gender Information Value Date Recorded Sex Assigned at Not on file Legal Sex Female 5:33 PM PEOPLESOFT CRM DEVELOPER Gender Identity Not on file Sexual Orientation Not on file Plan of Treatment Not on file Insurance [place] [employer] Care Teams Dispatcher Service Or Work Relationship Specialty Start Date End Date Joseph Shelton MD PCP - General Family Medicine 12/06/23
== END 2025-05-17 08:36 | disposition home or self-care (01) ==
PROVIDERS: PCP Family Medicine; Visit Provider Internal Medicine Cardiovascular Disease
DX: Z01.810 Encounter for preprocedural cardiovascular examination (principal)
CPT/HCPCS: 78452; 93017; A9502; J2785

== ENCOUNTER 2025-07-05 09:09 | Outpatient (CLI) | payer OTHER, SELFPAY ==
--- OUTSIDE RECORDS SUMMARY | 2025-07-05 09:42 | XMS_ITS | Clinical Summary ---
Author Organization [facility] Address [address] [address] Care Team Providers Care Box Turner Name Role Phone Joseph Shelton MD Primary Care Provider Source Comments [facility],non-owned Affiliates and Associated Physician Practices is amultiple site organization consisting of ambulatory clinics and hospital sitesin [place], [place], [place] and [place]. This disclosure is being madepursuant to the Care Everywhere program and may not contain all information available regarding this patient. Last updated 18.[facility] Allergies Active Allergy Reactions Criticality Noted Date [...] mouth 2 times daily Active HYDROcodone-ac etaminophen ([place]) 5-325 MG tabletIndicati ons:Other closed fracture of second lumbar vertebra, initial encounter ([facility]) Take 1 (one) tablet by mouth every [...] diff and CMP. Please fax results to [phone]. Follow up with Dr. Gilmore in 1-2 weeks/PRN. Please call [phone] for scheduling. Discontinue PICC after last dose [...] Comments Blood Pressure 124/74 12/17/2024 11:56 AM LINING INSERTER Pulse 60 12/17/2024 11:56 AM LINING INSERTER Temperature 36.6 C (97.8 F) 12/17/2024 11:56 AM LINING INSERTER Respiratory Rate 17 12/17/2024 11:56 AM LINING INSERTER Oxygen Saturation 94% 12/17/2024 11:56 AM LINING INSERTER Inhaled Oxygen Concentration - - Weight 101.6 kg (224 lb) 12/07/2024 2:40 PM LINING INSERTER Height 162.6 cm (5' 4) 12/07/2024 2:40 PM LINING INSERTER Body Mass Index 38.45 12/07/2024 2:40 PM LINING INSERTER Plan of Treatment Health Maintenance Due Date [...] to complete this topic Insurance [facility] Advance Directives * Full Code (Latest Code Status on File) Date Activated Date Inactivated Comments 12/07/2024 8:32 AM 12/17/2024 5:46 PM Care Teams Box Turner Relationship Specialty Start Date End Date Joseph Shelton MD [address] [place] [phone] PCP - General Family Medicine 12/07/24
--- OUTSIDE RECORDS SUMMARY | 2025-07-05 09:42 | XMS_ITS | Clinical Summary ---
Author Organization [facility] Address [address] [place] [address] Care Team Providers Care Brick Chimney Builder Name Role Phone Joseph Shelton MD Primary Care Provider [phone] Social History Tobacco Use Types Packs/Day Years Used Date Smoking Tobacco: Never Assessed Personal Safety Answer Date Recorded Getting School Help Needed Not on file 12/05 Comments Unknown Sex and Gender Information Value Date Recorded Sex Assigned at Not on file Legal Sex Female 5:33 PM TAILINGS MAN Gender Identity Not on file Sexual Orientation [...] season) 2024 12/07/2021, 11/16/2021 Influenza Vaccine (#1) 2025 Pneumococcal vaccine <65 Aged Out No longer eligible based on patient's age to complete this topic Insurance [place] [employer] Care Teams Brick Chimney Builder Relationship Specialty Start Date End Date Joseph Shelton MD PCP - General Family Medicine 12/06/23
[2025-07-05 10:05] LABS: Anion Gap 5 mmol/L (4-12); Blood Urea Nitrogen 16 mg/dL (7-17); Calcium 9.4 mg/dL (8.4-10.2); Carbon Dioxide 32 mmol/L (22-30); Chloride 104 mmol/L (98-107); Estimated Glomerular Filt Rate > 60; Glucose 106 mg/dL (65-110); Osmolality Calculated 293 mOsm/kg (285-295); Potassium 4.4 mmol/L (3.4-5.0); Sodium 141 mmol/L (137-145)
== END 2025-07-05 09:10 | disposition home or self-care (01) ==
LOC: CHSLAB 09:10
PROVIDERS: Nurse Practitioner Adult Health; PCP Family Medicine; Visit Provider Anesthesiology
DX: E55.9 Vitamin D deficiency, unspecified (principal); E11.9 Type 2 diabetes mellitus without complications
CPT/HCPCS: 36415; 80048; 82306

== ENCOUNTER 2025-07-06 00:48 | Day surgery (SDC) | payer OTHER, SELFPAY ==
[2025-06-25 13:58] VITALS: BMI 37.6
--- NOTE | 2025-06-25 13:59 | PC.NURSE ---
Report to the Outpatient Waiting Room, entrance under the green pavilion located off [facility], at time _1000_ on date _[id number]_. Planned Procedure Time: _1200_.? Time changes happen often and if your time is changed the preop area will call you the afternoon before. - You and your visitor will be asked to self-screen and do not enter if you have any COVID symptoms. Please call surgeon if you need to reschedule. - A mask is optional within the hospital at this time. - No food or drink from midnight until time of surgery and no smoking, or chewing tobacco (or any form of nicotine). No chewing gum, candy or mints. Take only the following medications with a SIP of water on the morning of surgery: __Albuterol, Breztri, Buspirone, Bupropion, Metoprolol, Pregabalin and if needed Oxycodone and or Alprazolam___ DO NOT STOP ANY OF YOUR OTHER PRESCRIPTION MEDICATIONS PRIOR TO SURGERY EXCEPT THE FOLLOWING Hold all vitamins and supplements for 3 days per anesthesiologist. Medications to discontinue per physician ___Sandy___Says was instructed to hold 3 days. Date to take last hzkd___[id number]___ Please no make-up, nail south korean, hairspray, perfume, deodorant, or body powder the day of surgery.? No jewelry (including any body piercings) or valuables the day of surgery, leave them at home.? Please take a shower or bath the night before, or the morning of, surgery with an antibacterial soap.? Wear comfortable, loose fitting clothing.? - Jewelry must be removed prior to entering the operating room.? Rings and piercings that are not removed may be cut off. - The hospital will not accept responsibility for valuables.? - Please leave all valuables, including medications, at home the day of surgery. If you are going home after surgery, a licensed box truck driver must drive you home.? - NO public transportation without another adult if you receive anesthesia. - We recommend that an adult stay with you for 24 hours following discharge. - We also recommend that you do not drive, make important decision, drink alcoholic beverages, or take any drugs that were not prescribed by your health care provider for at least 24 hours after your discharge time. Follow any additional instructions given to you from your surgeon. Telephone instructions given to ___Charity__and asked if any additional questions and then verbalized understanding. Patient advised to call surgeon office or pre surgery nurse liaison [phone] if any additional questions.
[2025-07-06] VITALS (8 sets, daily range): BP systolic 100–150; BP diastolic 58–98; PULSE 68–79; RESP 16–18; TEMP 36.2–36.7; O2SAT 95–100
--- NOTE | ~2025-07-06 | XR_ITS ---
XR fluoroscopy no charge Indication: Kyphoplasty at L2 and L3 TECHNIQUE: Fluoroscopy used during Kyphoplasty at L2 and L3 performed by [Kirk Cardenas MD] on 07/06/2025. 6 minutes 24 seconds fluoroscopy with 26 fluoroscopic images captured. FINDINGS: Correlate with procedure note. IMPRESSION: Fluoroscopy used during Kyphoplasty at L2 and L3. Reviewed, dictated and finalized at location O.
--- NOTE | 2025-07-06 08:53 | WPDANESEPPF ---
Anes - Initial Pre Proc Eval Procedure: Operation Date: 07/06/25 12:15 Proposed Procedures p Balloon Assisted Vertebral Augmentation (Kyphoplasty) at L2 with Intra Osseous Bone Biopsy Under Fluoroscopic Guidance - Kirk Cardenas MD Date/Time: 07/06/25 08:53 Surgeon: Kirk Cardenas MD Pre Op Diagnosis: wedge compression fracture L2 vertebrae Patient Data Age: 50 Gender: F Height: 1.65 m Weight: 102.7 kg Allergies Allergy/AdvReac Type Severity Reaction Status Date / Time cefadroxil Allergy Unknown Rash Verified 06/25/25 13:38 cefuroxime AdvReac Intermediate Rash Verified 06/25/25 13:38 Home Medications ?Medication ?Instructions ?Recorded ?Confirmed ?Type blood sugar diagnostic (OneTouch #100 ea 09/27/21 06/25/25 Rx Ultra Test strips) lancets (OneTouch UltraSoft #100 ea 09/27/21 06/25/25 Rx Lancets) blood-glucose meter (Accu-Chek #1 ea 09/17/23 06/25/25 Rx Guide Glucose Meter) albuterol sulfate 90 mcg/actuation See Rx Instructions .Route 07/02/24 06/25/25 Rx aerosol inhaler .COMPLEX #8.5 grams albuterol sulfate 2.5 mg/3 mL 2.5 mg (3 mL) inhalation Q6H PRN 07/24/24 06/25/25 Rx (0.083 %) solution for nebulization shortness of breath or wheezing #360 mL budesonide 160 mcg-glycopyr 9 2 inh inhalation QAM AND QPM #10.7 09/16/24 06/25/25 Rx mcg-formot 4.8 mcg/actuation HFA grams inhaler (Breztri Aerosphere) bupropion HCl 300 mg 24 hr tablet, 300 mg PO ONCE #30 tabs 12/30/24 06/25/25 Rx extended release buspirone 7.5 mg tablet 7.5 mg PO BID #60 tabs 12/30/24 06/25/25 Rx metoprolol tartrate 25 mg tablet 12.5 mg (1/2 x 25 mg) PO BID #30 01/13/25 06/25/25 Rx tabs pregabalin 150 mg capsule 150 mg PO BID #180 caps 02/02/25 06/25/25 Rx metformin 500 mg tablet 500 mg PO BID #180 tabs 02/16/25 06/25/25 Rx dulaglutide 0.75 mg/0.5 mL 0.75 mg (0.5 mL) subcut WEEKLY #2 02/19/25 06/25/25 Rx subcutaneous pen injector mL (Trulicity) apixaban 5 mg tablet (Eliquis) See Rx Instructions .Route 03/10/25 06/25/25 Rx .COMPLEX #60 tabs rosuvastatin 20 mg tablet 20 mg PO DAILY #90 tabs 05/08/25 06/25/25 Rx alprazolam 0.5 mg tablet (Xanax) See Rx Instructions PO BID PRN 06/07/25 06/25/25 Rx anxiety #15 tabs aripiprazole 10 mg tablet (Abilify) 10 mg PO HS 06/25/25 06/25/25 History paroxetine HCl 40 mg tablet 40 mg PO HS 06/25/25 06/25/25 History cyclobenzaprine 10 mg tablet 30 mg (3 x 10 mg) PO TID PRN 07/06/25 Rx muscle spasm #30 tabs oxycodone-acetaminophen 5 mg-325 1 tablet PO Q6H PRN pain #90 tabs 07/06/25 Rx mg tablet Patient hx anesthesia problems: none Family hx anesthesia problems: none Results Review: All pre-operative results and documents have been reviewed as part of the pre-operative evaluation. [facility] Past Medical History Medical History Vitamin D deficiency Elevated ALT measurement Fatigue Sepsis Compression fracture of lumbar vertebra Lumbar spine pain Obesity (BMI 30-39.9) History of cardioversion Congestive heart failure Atrial fibrillation with rapid ventricular response COPD (chronic obstructive pulmonary disease) Hematuria Low back pain with right-sided sciatica Morbid (severe) obesity due to excess calories Tobacco abuse Conjunctivitis Bronchitis Low TSH level Left wrist sprain Syncope Anxiety Depression Dyslipidemia Neuropathy Paroxysmal atrial tachycardia Type 2 diabetes mellitus with diabetic neuropathy, without long-term current use of insulin Essential hypertension MARK (obstructive sleep apnea) Surgical History Surgical History History of arthroscopic knee surgery LT X2 History of bilateral breast reduction surgery Family History Family History Mother Family history of chronic obstructive pulmonary disease Family history of congestive heart failure Heart disease Hypertension COPD (chronic obstructive pulmonary disease) Father No problems noted. Sibling No problems noted. Social History Social History Social History: Patient lives by herself and is not . She has two children and lives with a cat. She wishes to be a full code, and her daughter Jossy will be her surrogate. Smoking packs per day: 1 Smoking cigarettes per day: 20.0 Years smoked: 34 Smoking pack-years: 34.00 Smoking status: Current every day smoker Tobacco type: e-cigarettes/vaping Second hand tobacco smoke exposure: Yes Smoking end date: 11/05/22 Additional smoking assessment comments: 1/2 pack at present. Alcohol intake: current Alcohol use details: Beer with friend 2x a month Substance use: current Substance use type: marijuana Other substance usage details: joint about every other day Last use: 02/09/23 Do You Feel Safe in your Home?: Yes Lack of Transportation: No Lack of Food: Sometimes True Current Housing: I Have Housing Concerned About Future Housing: No Difficulty Paying Gas/Electric Bills: No Difficulty Paying for Meds: No Currently Unemployed: No Education: High School Diploma/GED Difficulty w/ Childcare or Family Care: No Living arrangements: with family Occupation/Education: unemployed Gender identity (if verbalized by the patient): Female Sexual Orientation (if Verbalized by the Patient): Straight or Heterosexual Spiritual care concerns: No Agree to blood products: Yes Anes - Eval Final PreProcedure Day of Procedure 07/06/25 08:53 Patient weight: obese Heart: regular rate and rhythm Lungs: clear to auscultation Airway: Mallampati scale class II Neurological: alert and oriented Last oral intake: >/= 8 hours ASA classification: IV Emergent: no Anesthetic plan: proceed Anesthesia type and monitoring: general ETT and standard monitoring Results Review: All pre-operative results and documents have been reviewed as part of the pre-operative evaluation. Informed Consent: The patient's anesthetic plan and its attendant risks and benefits were discussed with the patient/family/POA. Questions were solicited and answers provided to the satisfaction of the patient/family/POA.
--- NOTE | 2025-07-06 09:10 | PM.HPGS ---
History of Present Illness History of Present Illness Consent: Risks, benefits, and alternatives have been discussed and questions answered. Patient agrees to proceed with procedure. Chief complaint: wedge compression fracture L2 vertebrae Narrative: Charity Mclean is a 50 year old female with chronic, recalcitrant and disabling lumbar vertebrogenic back pain secondary to chronic, nonhealing osteoporotic compression fracture with nonunion and failure to respond to aggressive conservative measures including PT, oral and topical analgesics, opioid and nonopioid analgesics, rest, time and activity/behavioral modification over the past 3-4 months who presents for percutaneous transpedicular balloon assisted vertebral augmentation with intraosseous bone biopsy at L2 vertebral body under fluoroscopic guidance. Review of Systems Review of Systems: All systems reviewed & are unremarkable except as noted in HPI and below PMFSH Past Medical History Medical History Vitamin D deficiency Elevated ALT measurement Fatigue Sepsis Compression fracture of lumbar vertebra Lumbar spine pain Obesity (BMI 30-39.9) History of cardioversion Congestive heart failure Atrial fibrillation with rapid ventricular response COPD (chronic obstructive pulmonary disease) Hematuria Low back pain with right-sided sciatica Morbid (severe) obesity due to excess calories Tobacco abuse Conjunctivitis Bronchitis Low TSH level Left wrist sprain Syncope Anxiety Depression Dyslipidemia Neuropathy Paroxysmal atrial tachycardia Type 2 diabetes mellitus with diabetic neuropathy, without long-term current use of insulin Essential hypertension MARK (obstructive sleep apnea) Surgical History Surgical History History of arthroscopic knee surgery LT X2 History of bilateral breast reduction surgery Family History Family History Mother Family history of chronic obstructive pulmonary disease Family history of congestive heart failure Heart disease Hypertension COPD (chronic obstructive pulmonary disease) Father No problems noted. Sibling No problems noted. Social History Social History Social History: Patient lives by herself and is not . She has two children and lives with a cat. She wishes to be a full code, and her daughter Jossy will be her surrogate. Smoking packs per day: 1 Smoking cigarettes per day: 20.0 Years smoked: 34 Smoking pack-years: 34.00 Smoking status: Current every day smoker Tobacco type: e-cigarettes/vaping Second hand tobacco smoke exposure: Yes Smoking end date: 11/05/22 Additional smoking assessment comments: 1/2 pack at present. Alcohol intake: current Alcohol use details: Beer with friend 2x a month Substance use: current Substance use type: marijuana Other substance usage details: joint about every other day Last use: 02/09/23 Do You Feel Safe in your Home?: Yes Lack of Transportation: No Lack of Food: Sometimes True Current Housing: I Have Housing Concerned About Future Housing: No Difficulty Paying Gas/Electric Bills: No Difficulty Paying for Meds: No Currently Unemployed: No Education: High School Diploma/GED Difficulty w/ Childcare or Family Care: No Living arrangements: with family Occupation/Education: unemployed Gender identity (if verbalized by the patient): Female Sexual Orientation (if Verbalized by the Patient): Straight or Heterosexual Spiritual care concerns: No Agree to blood products: Yes Meds Home Medications and Allergies Home Medications ?Medication ?Instructions ?Recorded ?Confirmed ?Type blood sugar diagnostic (OneTouch #100 ea 09/27/21 06/25/25 Rx Ultra Test strips) lancets (OneTouch UltraSoft #100 ea 09/27/21 06/25/25 Rx Lancets) blood-glucose meter (Accu-Chek #1 ea 09/17/23 06/25/25 Rx Guide Glucose Meter) albuterol sulfate 90 mcg/actuation See Rx Instructions .Route 07/02/24 06/25/25 Rx aerosol inhaler .COMPLEX #8.5 grams albuterol sulfate 2.5 mg/3 mL 2.5 mg (3 mL) inhalation Q6H PRN 07/24/24 06/25/25 Rx (0.083 %) solution for nebulization shortness of breath or wheezing #360 mL budesonide 160 mcg-glycopyr 9 2 inh inhalation QAM AND QPM #10.7 09/16/24 06/25/25 Rx mcg-formot 4.8 mcg/actuation HFA grams inhaler (Breztri Aerosphere) bupropion HCl 300 mg 24 hr tablet, 300 mg PO ONCE #30 tabs 12/30/24 06/25/25 Rx extended release buspirone 7.5 mg tablet 7.5 mg PO BID #60 tabs 12/30/24 06/25/25 Rx metoprolol tartrate 25 mg tablet 12.5 mg (1/2 x 25 mg) PO BID #30 01/13/25 06/25/25 Rx tabs pregabalin 150 mg capsule 150 mg PO BID #180 caps 02/02/25 06/25/25 Rx metformin 500 mg tablet 500 mg PO BID #180 tabs 02/16/25 06/25/25 Rx dulaglutide 0.75 mg/0.5 mL 0.75 mg (0.5 mL) subcut WEEKLY #2 02/19/25 06/25/25 Rx subcutaneous pen injector mL (Trulicity) apixaban 5 mg tablet (Eliquis) See Rx Instructions .Route 03/10/25 06/25/25 Rx .COMPLEX #60 tabs rosuvastatin 20 mg tablet 20 mg PO DAILY #90 tabs 05/08/25 06/25/25 Rx alprazolam 0.5 mg tablet (Xanax) See Rx Instructions PO BID PRN 06/07/25 06/25/25 Rx anxiety #15 tabs aripiprazole 10 mg tablet (Abilify) 10 mg PO HS 06/25/25 06/25/25 History paroxetine HCl 40 mg tablet 40 mg PO HS 06/25/25 06/25/25 History cyclobenzaprine 10 mg tablet 30 mg (3 x 10 mg) PO TID PRN 07/06/25 Rx muscle spasm #30 tabs oxycodone-acetaminophen 5 mg-325 1 tablet PO Q6H PRN pain #90 tabs 07/06/25 Rx mg tablet Allergies Allergy/AdvReac Type Severity Reaction Status Date / Time cefadroxil Allergy Unknown Rash Verified 06/25/25 13:38 cefuroxime AdvReac Intermediate Rash Verified 06/25/25 13:38 Assessment and Plan Assessment and plan (1) Dorsalgia: Code(s): M54.9 - Dorsalgia, unspecified Status: Acute (2) Wedge compression fracture of L2 vertebra with nonunion: Code(s): S32.020K - Wedge compression fracture of second lumbar vertebra, subsequent encounter for fracture with nonunion Status: Acute (3) Age-related osteoporosis with current pathol fracture of vertebra: Code(s): M80.08XA - Age-related osteoporosis with current pathological fracture, vertebra(e), initial encounter for fracture Status: Acute Assessment and Plan: Proceed as planned with percutaneous transpedicular balloon assisted vertebral augmentation with intraosseous bone biopsy at L2 vertebral body under fluoroscopic guidance.
--- NOTE | 2025-07-06 09:13 | WPDHPUPDATE1 ---
History and Physical Update Update Date/Time: 07/06/25 09:13 History and Physical has been reviewed, including an updated exam of the patient. There are NO changes in the patient's condition. Risks, benefits, and alternatives have been discussed and questions answered. Patient agrees to proceed with procedure.
--- NOTE | 2025-07-06 09:14 | W.PM.PROC2 ---
Procedure Note - Detailed Date of Procedure 07/06/25 Pre-op Diagnosis wedge compression fracture L2 vertebrae, acute L3 compression fracture Post-op Diagnosis Same Procedure Performed Percutaneous balloon-assisted vertebral augmentation of the L2 and L3 vertebral bodies under fluoroscopic guidance (Kyphoplasty) with intraosseous bone biopsy. Surgeon Kirk Cardenas MD Financial Associate None. Anesthesia General (GETA with local anesthetic infiltration in the prone position.) Indications Osteoporotic vertebral compression fracture with greater than 25% deformity in the absence of neurologic deficit or significant central canal stenosis. Findings Upon fluoroscopic imaging of the L2 vertebral body, it was noticed that there was a significant and new compression deformity superior endplate of L3. This was confirmed absent on the patient's MRI from 06/24/25. Family was notified. Informed consent was obtained through the family to add L3 kyphoplasty to the procedure plan. This was completed without difficulty. Patient tolerated well. Description of Procedure INFORMED CONSENT: Risks, benefits and alternatives to the procedure were discussed in detail with the patient who expressed explicit understanding and consent to proceed. Patient was informed verbally and in written form regarding the risks associated with the procedure including the low risk of serious local or systemic infection, bleeding/bruising, allergic reaction, pulmonary embolus/edema, extravasation of cement requiring surgical intervention, worsening fracture, nerve or organ injury, paralysis, procedural site pain or discomfort, worsening pain and/or mobility, failure to treat and/or disfigurement. The patient expressed explicit understanding and consent to proceed. All materials required for the procedure were available prior to procedure start. Site and side were marked prior to procedure and confirmed in the presence of the unsedated patient. PROCEDURE IN DETAIL: After full informed consent was obtained, appropriate IV access was confirmed by Anesthesia without difficulty. The patient was escorted to the operative theater. Supplemental oxygen was initiated to maintain O2 saturation between 92-99%. Careful positioning was undertaken and ASA standard monitors were applied and checked routinely throughout the case. Prophylactic antibiotics were administered prior to procedure start. Patient was placed in the prone position in optimal extension using pillows and the thoracolumbar spine was prepared and draped in the usual sterile manner using tinted ChloraPrep scrub and allowed to dry completely for at least 3 minutes. Fluoroscopy in the AP and lateral position was used with perfect linear projections at the L2 level to identify/confirm the procedural level and presence of deformity. Percutaneous trocar was introduced from a rightward approach (transpedicular approach) via a small stab skin incision made at the entry site using a #11 scalpel following adequate anesthesia via infiltration of a 1:1 admixture of 2% PF lidocaine with epinephrine and 0.5% PF bupivacaine with a 2 inch 27-gauge needle after negative aspiration for blood or body fluid. Anesthesia was extended to periosteum at the intended procedural level with a 3.5 inch 22g Quincke spinal needle. A 10-gauge trocar with a finesse tip was introduced through the skin incision and docked on the right posterior pedicle of L2 in the superolateral (11 o'clock) position. Under live fluoroscopy while alternating between AP and lateral views, the trocar was advanced intermittently in the anterior, medial and inferior directions using a metal surgical mallet, taking care to advance only in the AP view, using lateral views to confirm depth and direction. In the AP view, as the tip of the trocar approached (but did not violate) the medial, inferior border of the pedicle, lateral view was utilized to confirm advancement of the trocar through the pedicle and into the posterior third of the vertebral body. Using the crushing machine operator-provided bone biopsy device, an intravertebral core biopsy was obtained from each level treated and sent in an appropriately-labeled sterile specimen cup with formalin for pathological analysis. Trocar was then advanced in the lateral view, with appropriate trajectory and final placement identified/confirmed by intermittent evaluation in the AP view until the trocar tip reached the anterior 3rd of the vertebral body at or near midline without violation of the anterior or lateral vertebral ng. A 20 ml balloon catheter prefilled with Omnipaque 300 contrast medium was advanced to the anterior third of the vertebral body at or near midline in the medial and lateral views and inflated with contrast to a volume of 5 ml or less at an internal pressure of 400 psi or less, creating an appropriately sized cavity within the vertebral body with correct balloon location identified in both the AP and Lateral views. The cement introducer was then advanced into the far end of the cavity and the void was filled in a controlled fashion, in 0.5-1.0 mL increments, monitoring in both the AP and Lateral views for appropriate cement position and fill, utilizing a total of 3-5 mm of polymethylmethacrylate containing nonionic contrast, stopping with any posterior spread or evidence of vascular, disc space or extra vertebral encroachment of cement. Once appropriate fill was confirmed in both the lateral and AP views, the cement introducer was withdrawn, stylette was reinserted and trocar removed in a stepwise fashion under live fluoroscopy in the lateral view to ensure lack of cement migration into the trocar tracts. The same exact procedure was then completed in the same manner at L3, modified only for adjacent level procedure location and contralateral pedicle entry site, with similar results and no evidence of complication. Patient was allowed to remain in the prone position under relative thoracolumbar extension until cement had fully hardened, or approximately 15 minutes after initial mixing. The patient's skin was cleansed and the stab incision(s) were closed using benzoin and Steri-Strips in a jeanne- crossing fashion and covered by a non-stick sponge pad and self-adherent clear, occlusive dressing. The patient tolerated this procedure well. Anesthesia was reversed without difficulty. The patient was transported to the recovery area in stable condition and without evidence of subsequent complication. Peripheral IV was discontinued. Patient was eventually discharged under their own power with pain satisfactorily controlled, without significant nausea or neurologic deficit and with full ability to ambulate, void and tolerate liquids by mouth. The patient was instructed to avoid excessive activity for the next 48 hours. Patient was restricted from driving for 48 hours. The patient was instructed to restart any anticoagulants 24 hours after the procedure unless otherwise directed by their prescribing physician. They were instructed to avoid heavy lifting, pushing, pulling or carrying weights greater than 5 pounds until released. They are to avoid any overhead work. The patient is to sponge bathe only for the next 48 hours. Top bandage can be removed after 48 hours. Steri-Strips are to remain in place until they fall off on their own or until removed by physician. After 48 hours and top bandage is removed, patient may resume showering. No bathing or soaking for one week or as released by physician. The patient is to monitor for signs of infection including fevers, chills, night sweats, redness, swelling or discharge at the procedural site. They are to monitor for signs of neurologic change including new numbness, weakness or pain in the upper or lower extremities, headaches or loss of bowel or bladder control. Should they develop any of these symptoms they are to call our office immediately during office hours or report directly to the nearest emergency department if after hours or if no immediate answer. COMPLICATIONS: None. COMMENTS: None. EBL: Minimal. DRAINS: None. PACKING: None. PATHOLOGY: Intraosseous, intravertebral core bone biopsyies x 2 labeled L2 vertebral body and ?L3 vertebral body,? sent in preservative. Drains No Packing No Complications No immediate complications Condition Stable Disposition PACU [facility] Billing Surgery - Charge Forward: Surgery Billing
[2025-07-06] MEDS: LACTATED RINGERS 1,000 ML 30 ML IV CONT (11:00)
[2025-07-06] MEDS: CLINDAMYCIN 600 MG/D5W 50 ML 600 MG/50 ML PIGGYBACK 100 MG IVPB (11:43)
[2025-07-06] MEDS: LIDOCAINE 2% PF LOCAL INJ 5 ML VIAL 10 ML INFILTRATE (12:24)
--- NOTE | 2025-07-06 12:27 | S_PTH ---
PATIENT: Charity Mclean LOC: [facility] U#:[id number] AGE/SX: 50/F ROOM: RE07/06/[address]: Kirk Cardenas MD : 1975 BED: DIS: 07/06/2025 SPEC #: [id number] RECD: 07/06/25 13:00 STATUS: JENNIFER REQ #: [id number] JESUS: 07/06/25 12:[address]: Kirk Cardenas DEPT: [facility] Surgical RECD BY: Mattie Flores ENTERED: 07/06/25 13:00 SP TYPE: Surgical OTHR DR: Joseph Shelton MD Tissues: A - Bone Biopsy B - Bone Biopsy Procedures: Hematoxylin and Eosin Stain Gross and Microscopic Level 5 Decalcification
== END 2025-07-06 14:23 | disposition home or self-care (01) ==
PROVIDERS: PCP Family Medicine; Visit Provider Anesthesiology Pain Medicine
PROC: (CPT 22514; principal; 2025-07-06 12:15)
DX: S32.020K Wedge compression fracture of second lumbar vertebra, subsequent encounter for fracture with nonunion (principal); M80.08XA Age-related osteoporosis with current pathological fracture, vertebra(e), initial encounter for fracture; D75.89 Other specified diseases of blood and blood-forming organs; E78.5 Hyperlipidemia, unspecified; E11.40 Type 2 diabetes mellitus with diabetic neuropathy, unspecified; G47.33 Obstructive sleep apnea (adult) (pediatric); I11.0 Hypertensive heart disease with heart failure; I50.9 Heart failure, unspecified; I48.0 Paroxysmal atrial fibrillation; J44.9 Chronic obstructive pulmonary disease, unspecified; F41.9 Anxiety disorder, unspecified; F32.A Depression, unspecified; X58.XXXD Exposure to other specified factors, subsequent encounter; R53.83 Other fatigue; F12.90 Cannabis use, unspecified, uncomplicated; F17.290 Nicotine dependence, other tobacco product, uncomplicated; E66.9 Obesity, unspecified; Z68.39 Body mass index [BMI] 39.0-39.9, adult; Z79.51 Long term (current) use of inhaled steroids; Z79.84 Long term (current) use of oral hypoglycemic drugs; Z79.85 Long-term (current) use of injectable non-insulin antidiabetic drugs; Z79.01 Long term (current) use of anticoagulants; Z79.891 Long term (current) use of opiate analgesic; Z98.890 Other specified postprocedural states; Z86.79 Personal history of other diseases of the circulatory system; Z82.49 Family history of ischemic heart disease and other diseases of the circulatory system
CPT/HCPCS: 22514; 20251; 82948; 88307; 88311; 99199; C1713; J0330; J1100; J2003; J2250; J2405; J2704; J3010; J7120; Q9965

== ENCOUNTER 2025-07-21 16:08 | Outpatient (CLI) | payer OTHER, SELFPAY ==
--- NOTE | ~2025-07-21 | XR_ITS ---
EXAMINATION: XR sacrum coccyx min 2V, 07/21/2025 16:30 CDT HISTORY: M46.1 - Sacroiliitis, not elsewhere classified COMPARISON: No comparisons available. Findings: No acute fracture or malalignment. Mild sclerosis of the sacroiliac joints especially on the right side however there is no bridging osteophyte formation or erosion identified. Soft tissues unremarkable. Impression: No acute fracture or malalignment. Reviewed, dictated and finalized at location A. Impression: No acute fracture or malalignment.
--- NOTE | ~2025-07-21 | XR_ITS ---
XR lumbar spine 6V w bending Indication: M54.50 - Low back pain, unspecified Comparison: None Findings: Grade 1 retrolisthesis L4 on L5, there are kyphoplasty changes at L2 and L3 with remote compression fractures and loss of height 20%, no acute fracture is identified, no subluxation flexion-extension The disc heights are intact. Soft tissues unremarkable Impression: No acute abnormality. Reviewed, dictated and finalized at location A. Impression: No acute abnormality.
--- NOTE | ~2025-07-21 | XR_ITS ---
EXAMINATION: XR hip BI 2V w AP pelvis, 07/21/2025 16:20 CDT HISTORY: M25.551 - Pain in right hip COMPARISON: No comparisons available. Findings: No acute fracture or malalignment. Moderate degenerative changes Soft tissues unremarkable. Impression: No acute fracture or malalignment. Reviewed, dictated and finalized at location A. Impression: No acute fracture or malalignment.
--- OUTSIDE RECORDS SUMMARY | 2025-07-21 16:11 | XMS_ITS | Clinical Summary ---
Author Organization [facility] Address [address] [place] [address] Care Team Providers Care Rehab Physician Name Role Phone Joseph Shelton MD Primary Care Provider [phone] Social History Tobacco Use Types Packs/Day Years Used Date Smoking Tobacco: Never Assessed Personal Safety Answer Date Recorded Getting School Help Needed Not on file 12/05 Comments Unknown Sex and Gender Information Value Date Recorded Sex Assigned at Not on file Legal Sex Female 5:33 PM CLINICAL ASSOCIATE Gender Identity Not on file Sexual Orientation [...] age to complete this topic Insurance [place] [employer] Care Teams Rehab Physician Relationship Specialty Start Date End Date Joseph Shelton MD PCP - General Family Medicine 12/06/23
--- OUTSIDE RECORDS SUMMARY | 2025-07-21 16:11 | XMS_ITS | Clinical Summary ---
Author Organization [facility] Address [address] [place] [address] Care Team Providers Care Vessel Ordinary Seaman Name Role Phone Joseph Shelton MD Primary [...] 2:32 PM CDT Height 165.1 cm (5' 5) 02/15/2023 2:32 PM CDT Body Mass Index [...] Vaccines (1 of 2) 2024 COVID-19 Vaccine (2024-2 6 season) 2025 12/07/2021, 11/16/2021 Meningococcal B Vaccine Aged Out No l onger eligible based on patient's age to complete this topic Meningococcal Vaccine Aged Out No flaca myra eligible based on patient's age to complete this topic RSV Immunizations Under 20 Months Aged Out No longer eligible b ased on patient's age to complete this topic Insurance [facility] MEDICAID Care Teams Vessel Ordinary Seaman Relationship Specialty Start Date End Date Joseph Shelton MD [address] [place] [address] PCP - General FAMILY PRACTICE 05/23/22
== END 2025-07-21 16:09 | disposition home or self-care (01) ==
LOC: CHSIMG 16:10
PROVIDERS: PCP Family Medicine; Visit Provider Nurse Practitioner Adult Health
DX: M46.1 Sacroiliitis, not elsewhere classified (principal); M25.551 Pain in right hip; M25.552 Pain in left hip; M54.50 Low back pain, unspecified; S32.000A Wedge compression fracture of unspecified lumbar vertebra, initial encounter for closed fracture
CPT/HCPCS: 72114; 72220; 73521

== ENCOUNTER 2025-08-12 14:27 | Outpatient (CLI) | payer OTHER, SELFPAY ==
--- NOTE | ~2025-08-12 | XR_ITS ---
EXAMINATION: XR ribs BI 3V w CXR 2V, 08/12/2025 14:40 CDT HISTORY: S29.9XXA - Unspecified injury of thorax, initial encounter COMPARISON: No comparisons available. Findings: No acute fracture or malalignment. No significant degenerative changes. Soft tissues unremarkable. Impression: No acute fracture or malalignment. Reviewed, dictated and finalized at location P. Impression: No acute fracture or malalignment.
--- OUTSIDE RECORDS SUMMARY | 2025-08-12 14:30 | XMS_ITS | Clinical Summary ---
Author Organization [facility] Address [address] [place] [address] Care Team Providers Care Manager Technical Sales Name Role Phone Joseph Shelton MD Primary Care Provider [phone] Source Comments [facility],non-owned Affiliates and Associated Physician Practices is amultiple site organization consisting of ambulatory clinics and hospital sitesin [place], [place], [place] and [place]. This disclosure is being madepursuant to the Care Everywhere program and may not contain all information available regarding this patient. Last updated 18.[facility] Allergies Active Allergy Reactions Criticality Noted Date [...] mouth 2 times daily Active HYDROcodone-ac etaminophen (Loyal) 5-325 MG tabletIndicati ons:Other closed fracture of second lumbar vertebra, initial encounter ([facility]) Take 1 (one) tablet by mouth every [...] diff and CMP. Please fax results to [phone]. Follow up with Dr. Gilmore in 1-2 weeks/PRN. Please call [phone] for scheduling. Discontinue PICC after last dose [...] Comments Blood Pressure 124/74 12/17/2024 11:56 AM OFFICE AGENT Pulse 60 12/17/2024 11:56 AM OFFICE AGENT Temperature 36.6 C (97.8 F) 12/17/2024 11:56 AM OFFICE AGENT Respiratory Rate 17 12/17/2024 11:56 AM OFFICE AGENT Oxygen Saturation 94% 12/17/2024 11:56 AM OFFICE AGENT Inhaled Oxygen Concentration - - Weight 101.6 kg (224 lb) 12/07/2024 2:40 PM OFFICE AGENT Height 162.6 cm (5' 4) 12/07/2024 2:40 PM OFFICE AGENT Body Mass Index 38.45 12/07/2024 2:40 PM OFFICE AGENT Plan of Treatment Health Maintenance Due Date [...] 1995 ZOSTER VACCINE (1 of 2) 2024 DEPRESSION SCREENING 11/11/2024 COVID-19 VACCINE (1 - 2023-2 5 season) 2025 INFLUENZA VACCINE (#1) 2025 HIB VACCINE Aged [...] patient's age to complete this topic Insurance [facility] SELF PAY NO INSURANCE Member Subscriber Plan / Payer (Ef fective for All Dates) Name:Charity Gillespie Member ID:Not on file Relation to Subscriber:Not on file Name:CHARITY GILLESPIE Subscriber ID:Not on file (Home) Address: [address] [place] [id number] Payer ID:Not on file Group ID:Not on file Type:Self Pay Address: [place], [place] Advance Directives * Full Code (Latest Code Status on File) Date Activated Date Inactivated Comments 12/07/2024 8:32 AM 12/17/2024 5:46 PM Care Teams Manager Technical Sales Relationship Specialty Start Date End Date Joseph Shelton MD [address] [place] [address] PCP - General Family Medicine 12/07/24
--- OUTSIDE RECORDS SUMMARY | 2025-08-12 14:30 | XMS_ITS | Clinical Summary ---
Author Organization [facility] Address [address] [place] [address] Care Team Providers Care Traffic Manager Name Role Phone Joseph Shelton MD Primary Care Provider [phone] Allergies Active Allergy Reactions Criticality Noted Date [...] to complete this topic Insurance [facility] MEDICAID Care Teams Traffic Manager Relationship Specialty Start Date End Date Joseph Shelton MD [address] [place] [address] PCP - General FAMILY PRACTICE 05/23/22
--- OUTSIDE RECORDS SUMMARY | 2025-08-12 14:30 | XMS_ITS | Clinical Summary ---
Author Organization [facility] Address [address] [place] [address] Care Team Providers Care Member Services Representative Name Role Phone Joseph Shelton MD Primary Care Provider [phone] Social History Tobacco Use Types Packs/Day Years Used Date Smoking Tobacco: Never Assessed Personal Safety Answer Date Recorded Getting School Help Needed Not on file 12/05 Comments Unknown Sex and Gender Information Value Date Recorded Sex Assigned at Not on file Legal Sex Female 5:33 PM REFRIGERATION LEAD Gender Identity Not on file Sexual Orientation [...] of 2) 2024 Covid-19 Vaccine (3 - 2024-2 6 season) 2025 12/07/2021, 11/16/2021 Influenza Vaccine (#1) 2025 Pneumococcal vaccine <65 Aged Out No longer eligible based on patient's age to complete this topic Insurance [place] [employer] Care Teams Member Services Representative Relationship Specialty Start Date End Date Joseph Shelton MD PCP - General Family Medicine 12/06/23
== END 2025-08-12 14:28 | disposition home or self-care (01) ==
PROVIDERS: PCP Family Medicine; Visit Provider Nurse Practitioner Family
DX: S29.9XXA Unspecified injury of thorax, initial encounter (principal); X58.XXXA Exposure to other specified factors, initial encounter
CPT/HCPCS: 71046; 71110

== ENCOUNTER 2025-08-14 08:05 | Outpatient (CLI) | payer OTHER, SELFPAY ==
--- NOTE | ~2025-08-14 | MR_ITS ---
EXAMINATION: MR lumbar spine wo con DATE: 08/14/2025 08:34 INDICATION: Low back pain. TECHNIQUE: Magnetic resonance imaging (MRI) of the lumbar spine was performed without intravenous contrast. Sequences included sagittal T2-weighted FSE, sagittal T2-weighted FS FSE, sagittal T1-weighted FSE, and axial T2-weighted FSE. COMPARISON: Lumbar spine MRI 06/24/2024, radiographs 07/21/2025, 12/06/24 FINDINGS: There is 4 degrees levocurvature of lumbar spine. There is a chronic compression fracture of L1. There are compression fractures of L2 and L3 with edema-like marrow signal intensity and changes of vertebroplasty. There is a healing fracture of right L3 transverse process. There is mildly decreased disc height at L1-L2, L2-L3, and L3-L4. The distal spinal cord signal intensity is normal. The conus medullaris is at T12-L1. The following disc levels are specifically discussed: L1-L2: The disc is bulging and has an annular fissure. There is mild bilateral facet joint osteoarthritis. There is mild bilateral neural foraminal stenosis. There is mild central canal stenosis. L2-L3: The disc is bulging and has an annular fissure. There is mild bilateral facet joint osteoarthritis. There is mild bilateral neural foraminal stenosis. There is no central canal stenosis. L3-L4: The disc is bulging and has an annular fissure. There is mild bilateral facet joint osteoarthritis. There is mild bilateral neural foraminal stenosis. There is mild central canal stenosis. L4-L5: The disc is bulging and has an annular fissure. There is moderate bilateral facet joint osteoarthritis. There is mild bilateral neural foraminal stenosis. There is mild central canal stenosis. L5-S1: The disc is bulging and has an annular fissure. There is mild right and moderate left facet joint osteoarthritis. There is mild bilateral neural foraminal stenosis. There is mild central canal stenosis. IMPRESSION: 1. Mild lumbar spondylosis. 2. Subacute compression fractures of L2 and L3 with changes of vertebroplasty. Healing fracture of right L3 transverse process. Reviewed, dictated and finalized at location E.
--- OUTSIDE RECORDS SUMMARY | 2025-08-14 08:08 | XMS_ITS | Clinical Summary ---
Author Organization [facility] Address [address] [place] [address] Care Team Providers Care President And Cmo Name Role Phone Joseph Shelton MD Primary [...] patient's age to complete this topic Insurance [facility] MEDICAID Care Teams President And Cmo Relationship Specialty Start Date End Date Joseph Shelton MD [address] [place] [address] PCP - General FAMILY PRACTICE 05/23/22
--- OUTSIDE RECORDS SUMMARY | 2025-08-14 08:08 | XMS_ITS | Clinical Summary ---
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
--- OUTSIDE RECORDS SUMMARY | 2025-08-14 08:08 | XMS_ITS | Clinical Summary ---
Author Organization [facility] [email or web address] Address [address] [place] [address] Care Team Providers Care Asset Administrator Name Role Phone Joseph Shelton MD Primary Care Provider [phone] Source Comments [facility],non-owned Affiliates and Associated Physician Practices is amultiple site organization consisting of ambulatory clinics and hospital sitesin [place], [place], [place] and [place]. This disclosure is being madepursuant to the Care Everywhere program and may not contain all information available regarding this patient. Last updated 18.[facility] [email or web address] Allergies Active Allergy Reactions Criticality Noted Date [...] mouth 2 times daily Active HYDROcodone-ac etaminophen ([place]) 5-325 MG tabletIndicati ons:Other closed fracture of second lumbar vertebra, initial encounter ([facility]) Take 1 (one) tablet by mouth every [...] diff and CMP. Please fax results to [phone]. Follow up with Dr. Gilmore in 1-2 weeks/PRN. Please call [phone] for scheduling. Discontinue PICC after last dose [...] Comments Blood Pressure 124/74 12/17/2024 11:56 AM TUNNEL ELASTIC OPERATOR LOCKSTITCH Pulse 60 12/17/2024 11:56 AM TUNNEL ELASTIC OPERATOR LOCKSTITCH Temperature 36.6 C (97.8 F) 12/17/2024 11:56 AM TUNNEL ELASTIC OPERATOR LOCKSTITCH Respiratory Rate 17 12/17/2024 11:56 AM TUNNEL ELASTIC OPERATOR LOCKSTITCH Oxygen Saturation 94% 12/17/2024 11:56 AM TUNNEL ELASTIC OPERATOR LOCKSTITCH Inhaled Oxygen Concentration - - Weight 101.6 kg (224 lb) 12/07/2024 2:40 PM TUNNEL ELASTIC OPERATOR LOCKSTITCH Height 162.6 cm (5' 4) 12/07/2024 2:40 PM TUNNEL ELASTIC OPERATOR LOCKSTITCH Body Mass Index 38.45 12/07/2024 2:40 PM TUNNEL ELASTIC OPERATOR LOCKSTITCH Plan of Treatment Health Maintenance Due Date [...] patient's age to complete this topic Insurance [facility] SELF PAY NO INSURANCE Member Subscriber Plan / Payer (Ef fective for All Dates) Name:Charity Gillespie Member ID:Not on file Relation to Subscriber:Not on file Name:CHARITY GILLESPIE Subscriber ID:Not on file (Home) Address: [address] [place] [id number] Payer ID:Not on file Group ID:Not on file Type:Self Pay Address: [place], [place] Advance Directives * Full Code (Latest Code Status on File) Date Activated Date Inactivated Comments 12/07/2024 8:32 AM 12/17/2024 5:46 PM Care Teams Asset Administrator Relationship Specialty Start Date End Date Joseph Shelton MD [address] [place] [address] PCP - General Family Medicine 12/07/24
== END 2025-08-14 08:06 | disposition home or self-care (01) ==
LOC: CHSIMG 08:07
PROVIDERS: PCP Family Medicine; Visit Provider Nurse Practitioner Adult Health
DX: S32.020K Wedge compression fracture of second lumbar vertebra, subsequent encounter for fracture with nonunion (principal); M47.817 Spondylosis without myelopathy or radiculopathy, lumbosacral region
CPT/HCPCS: 72148

== ENCOUNTER 2025-09-07 10:08 | Day surgery (SDC) | payer OTHER, SELFPAY ==
[2025-09-03 10:45] VITALS: BMI 40.5
--- NOTE | ~2025-09-07 | XR_ITS ---
EXAMINATION: XR fluoroscopy no charge DATE: 09/07/2025 12:31 INDICATION: Right L4-L5 and L5-S1 transforaminal epidural steroid injections TECHNIQUE: 53 fluoroscopic images of the lumbar spine were obtained during pain management procedure performed by Dr. Cardenas. Radiologist was not present for the imaging or procedure. The amount of fluoroscopy time used during this procedure was 0.7 minutes. The cumulative radiation dose was 33.58 mGy. COMPARISON: None. FINDINGS: Images demonstrate needles advanced with distal tips projecting over the region of the right L4-L5 and L5-S1 neural foramina. Small amount of injected contrast unchanged perineural flow at the neural foramina with no evident intravascular or intrathecal contrast. Incidentally noted is methylmethacrylate for prior vertebroplasty at a L3 compression fracture. IMPRESSION: 1. Fluoroscopy utilized during right L4-L5 and L5-S1 transforaminal injections. See procedure note for further detail. Reviewed, dictated and finalized at location A.
[2025-09-07 11:35] VITALS: BP 143/76; PULSE 81; RESP 20; O2SAT 98
--- NOTE | 2025-09-07 11:59 | WPDHPUPDATE1 ---
History and Physical Update Update Date/Time: 09/07/25 11:59 History and Physical has been reviewed, including an updated exam of the patient. There are NO changes in the patient's condition. Risks, benefits, and alternatives have been discussed and questions answered. Patient agrees to proceed with procedure.
--- NOTE | 2025-09-07 12:00 | W.PM.PROC2 ---
Procedure Note - Detailed Date of Procedure 09/07/25 Pre-op Diagnosis Lumbar Radiculopathy Post-op Diagnosis Same Procedure Performed Right Lumbar Transforaminal Epidural Steroid Injection under Fluoroscopic Guidance and with Contrast Control at L4-5, L5-S1. Surgeon Kirk Cardenas MD Anesthesia Local Description of Procedure INFORMED CONSENT: Risks, benefits and alternatives to the procedure were discussed in detail with the patient who expressed explicit understanding and consent to proceed. Patient was informed verbally and in written form regarding the risks associated with the procedure including the low risk of serious infection, bleeding/bruising, allergic reaction, nerve or organ injury, paralysis, procedural site pain or discomfort, worsening pain and/or mobility, failure to treat and/or disfigurement. The patient expressed explicit understanding and consent to proceed. All materials required for the procedure were available prior to procedure start. Site and side was marked prior to procedure and confirmed in the presence of the patient. PROCEDURE IN DETAIL: The patient was brought to the procedural suite and placed in the prone position. Patient was made comfortable with use of pillows under the head/chest, hips and ankles. Skin overlying the injection site was prepared broadly with ChloraPrep applicator and draped in a sterile manner. Aseptic technique was employed throughout. The endplates of the vertebral body at the site of interest were aligned in the AP view. Ipsilateral oblique angulation was utilized to better visualize the neuroforamen of interest. Local anesthesia was established by infiltration with approximately 5 mL of 0.5% PF lidocaine via a 1-1/2 inch 27-gauge needle. A 22-gauge 5.0 inch Ariel (pencil point) spinal needle was advanced until the needle approached the 6 o'clock position on the pedicle just superior to the exiting nerve root. on the right at L4-5. Lateral view was utilized to confirm appropriate position of the needle tip within the superior and posterior portion of the respective foramen. In an AP view, 1 mL of Omnipaque 300 contrast medium was injected after negative aspiration for CSF, blood or other bodily fluid, showing appropriate neurogram without evidence of intravascular or intrathecal spread of contrast. Digital subtraction imaging was used with an additional 1ml of the same contrast medium to confirm absence of intravascular contrast spread. A 1mL solution containing 5 mg of dexamethasone was injected after negative repeat aspiration. Appropriate spread of the injectate was confirmed with washout of previously injected contrast. No parasthesias were elicited. Needle was removed completely intact without difficulty. The same exact procedure was repeated for all remaining levels on the ipsilateral side, right L5-S1 neuroforamen, modified as necessary to accommodate for the new target location with identical findings and results and no evidence of complication. Images were saved and documented in the patient chart. Patient's skin was cleaned and sterile bandage applied. The patient tolerated the procedure well. The patient was transported to the recovery area in stable condition where they were observed for an appropriate amount of time prior to discharge, without evidence of complication. The patient was instructed to avoid excessive activity for the next 48 hours, including climbing and frequent use of stairs. Showers only for 48 hours. They were instructed not to drive or operate heavy machinery for 24 hours. They are to monitor for severe headaches, fevers, chills, night sweats, erythema/swelling at the site or any other signs of infection, bleeding/bruising, bowel or bladder changes as well as new pain, weakness or numbness in the upper or lower extremity. Should they notice these changes, they are instructed to call our office immediately or report directly to the nearest Emergency Department if no answer or if after posted office hours. COMPLICATIONS: None COMMENTS: None CONTRAST WASTED: 26 mL Omnipaque 300. STEROID WASTED: 0 mg of betamethasone. Complications No immediate complications Condition Stable Disposition Same day [facility] Billing Surgery - Charge Forward: Surgery Billing
[2025-09-07 12:22] VITALS: BP 147/87; PULSE 77; RESP 9; O2SAT 92
[2025-09-07] MEDS: DEXAMETHASONE SODIUM PHOSP/PF 10 MG/ML 1 ML VIAL ×2 (12:25→12:27)
[2025-09-07] MEDS: LIDOCAINE 2% PF LOCAL INJ 5 ML VIAL (12:25)
[2025-09-07] MEDS: BUPivacaine HCL 0.5% 10 ML AMP (12:27)
[2025-09-07 12:32] VITALS: BP 148/94; PULSE 73; RESP 16; O2SAT 96
== END 2025-09-07 12:45 | disposition home or self-care (01) ==
PROVIDERS: PCP Family Medicine; Visit Provider Anesthesiology Pain Medicine
PROC: (CPT 64483; principal; 2025-09-07 12:10)
DX: M54.16 Radiculopathy, lumbar region (principal); M48.062 Spinal stenosis, lumbar region with neurogenic claudication
CPT/HCPCS: 64483; 64484; 99199

== ENCOUNTER 2025-10-18 07:13 | Day surgery (SDC) | payer OTHER, SELFPAY ==
--- NOTE | ~2025-10-18 | XR_ITS ---
EXAM/PROCEDURE: XR fluoroscopy no charge HISTORY: INTRA-ARTICULAR RIGHT SI JT STEROID JT INJ COMPARISON: None available. TECHNIQUE: Fluoroscopy no charge FLUOROSCOPY TIME: 41.9 seconds Dose: 33.58 mGy IMPRESSION: Fluoroscopic images provided for pain service. No radiologist present. See procedure/operative note for complete evaluation. Reviewed, dictated and finalized at location A. WAD OPERATOR ADJUSTER IMPRESSION: Fluoroscopic images provided for pain service. No radiologist present. See proc edure/operative note for complete evaluation.
[2025-10-18 07:47] VITALS: BMI 41.8
[2025-10-18 07:48] VITALS: BP 128/71; PULSE 86; RESP 20; TEMP 37.1; O2SAT 95
--- NOTE | 2025-10-18 07:53 | WPDHPUPDATE1 ---
History and Physical Update Update Date/Time: 10/18/25 07:53 History and Physical has been reviewed, including an updated exam of the patient. There are NO changes in the patient's condition. Risks, benefits, and alternatives have been discussed and questions answered. Patient agrees to proceed with procedure.
--- NOTE | 2025-10-18 07:54 | W.PM.PROC2 ---
Procedure Note - Detailed Date of Procedure 10/18/25 Pre-op Diagnosis Sacroiliitis Post-op Diagnosis Same Procedure Performed Right Sacroiliac Joint Steroid Injection under Fluoroscopic Guidance and with Contrast Control. Surgeon Kirk Cardenas MD Public Improvement Inspector None Anesthesia Local Description of Procedure INFORMED CONSENT: Risks, benefits and alternatives to the procedure were discussed in detail with the patient who expressed explicit understanding and consent to proceed. Patient was informed verbally and in written form regarding the risks associated with the procedure including the low risk of serious infection, bleeding/bruising, allergic reaction, nerve or organ injury, paralysis, procedural site pain or discomfort, worsening pain and/or mobility, failure to treat and/or disfigurement. The patient expressed explicit understanding and consent to proceed. All materials required for the procedure were available prior to procedure start. Site and side were marked prior to procedure and confirmed in the presence of the patient. PROCEDURE IN DETAIL: The patient was brought to the procedural suite and placed in the prone position. Patient was made comfortable with use of pillows under the head/chest, hips and ankles. Skin overlying the injection site on the affected side(s) was prepared broadly with ChloraPrep applicator and draped in a sterile manner. Aseptic technique was used throughout. The right SI joint was identified in the AP view and contralateral oblique angulation with caudal tilt was utilized to optimize visualization of the inferior and medial joint line representing the posterior portion of the joint. Local anesthesia was established by infiltration with approximately 5 mL of 2% lidocaine via a 1-1/2 inch 27-gauge needle. A 22-gauge 3.5 inch Quincke spinal needle was advanced until the needle entered the inferior third of the joint space approximately 1cm cephalad from its most inferior point. In the AP view, 0.5 mL of Omnipaque 300 contrast medium was injected after negative aspiration for CSF, blood or other bodily fluid, showing appropriate intra-articular spread of contrast without evidence of intravascular, perineural or intrathecal placement. A 1.5 mL solution containing 10 mg of dexamethasone in 0.5% PF bupivacaine was injected after repeat negative aspiration. Appropriate spread of the injectate was confirmed with washout of previous injected contrast. No parasthesias were elicited. Needle was removed completely intact without difficulty. Images were saved and documented in the patient chart. Patient's skin was cleansed and sterile bandage applied. The patient tolerated the procedure well. The patient was transported to the recovery area in stable condition where they were observed for an appropriate amount of time prior to discharge, without evidence of complication. The patient was instructed to avoid excessive activity for the next 48 hours, including climbing and frequent use of stairs. Showers only for 48 hours. They were instructed not to drive or operate heavy machinery for 24 hours. They are to monitor for severe headaches, fevers, chills, night sweats, erythema/swelling at the site or any other signs of infection, bleeding/bruising, bowel or bladder changes as well as new pain, weakness or numbness in the upper or lower extremity. Should they notice these changes, they are instructed to call our office immediately or report directly to the nearest Emergency Department if no answer or if after posted office hours. COMPLICATIONS: None COMMENTS: None CONTRAST WASTED: 29.5mL Omnipaque 300. Complications No immediate complications Condition Stable Disposition Same day [facility] Billing Surgery - Charge Forward: Surgery Billing
[2025-10-18 08:40] VITALS: BP 123/87; PULSE 86; RESP 19; O2SAT 93
[2025-10-18] MEDS: DEXAMETHASONE SODIUM PHOSP/PF 10 MG/ML 1 ML VIAL (08:42)
[2025-10-18 08:44] VITALS: BP 125/88; PULSE 87; RESP 20; O2SAT 95
[2025-10-18] MEDS: LIDOCAINE 1% PF INJ 5 ML VIAL INFILTRATE (08:44)
[2025-10-18] MEDS: BUPivacaine HCL 0.5% 10 ML AMP INFILTRATE (08:44)
[2025-10-18 08:49] VITALS: BP 120/77; PULSE 81; RESP 20; O2SAT 96
== END 2025-10-18 09:04 | disposition home or self-care (01) ==
PROVIDERS: PCP Family Medicine; Visit Provider Anesthesiology Pain Medicine
PROC: (CPT 27096; principal; 2025-10-18 08:10)
DX: M46.1 Sacroiliitis, not elsewhere classified (principal)
CPT/HCPCS: 27096; 99199; G0260